=== PATIENT | male | born 1980 | race Caucasian/White ===

== ENCOUNTER 2020-03-08 09:07 | Inpatient (IN) | payer OTHER ==
[2020-03-08] MEDS ORDERED: SODIUM CHLORIDE 0.9% 500 ML INFUS.BAG IV ONE (10:06)
[2020-03-08 11:38] LABS: BASO % 1.5 % (0-2.0); EOS % 5.6 % (0-4.5); HEMATOCRIT 37.5 % (35.4-49); HEMOGLOBIN 12.4 GM/dL (11.7-16.9); LYMPH % 22.8 % (8-40); MCH 28.6 pg (25.7-33.7); MEAN CELL VOLUME 86.7 fl (80-96); MEAN PLT VOLUME 6.8 fl (7.5-11.1); MONO % 10.7 % (3.8-10.2); NEUT % 59.4 % (42.8-82.8); PLATELET COUNT 359 K/MM3 (134-434); RBC 4.33 M/mm3 (4.00-5.60); RDW 15.6 % (11.9-15.9); WHITE BLOOD COUNT 3.1 K/mm3 (4.0-10.0)
[2020-03-08] MEDS ORDERED: AZITHROMYCIN IVPB 1,000 MG in DEXTROSE 5%-WATER - 250 ML IVPB ONE (11:44)
[2020-03-08 11:54] LABS: POTASSIUM 3.8 mmol/L (3.5-5.1)
[2020-03-08 11:56] LABS: CALCIUM 8.6 mg/dL (8.5-10.1)
[2020-03-08 11:57] LABS: BLOOD UREA NITROGEN 16.2 mg/dL (7-18)
[2020-03-08 12:00] LABS: CREATININE 0.7 mg/dL (0.55-1.3)
[2020-03-08 12:01] LABS: BILIRUBIN,TOTAL 0.6 mg/dL (0.2-1)
[2020-03-08 12:02] LABS: TOT PROT 7.5 g/dl (6.4-8.2)
[2020-03-08] MEDS ORDERED: CEFTRIAXONE 1 GM/50 ML BAG ONE (12:49)
[2020-03-08] MEDS ORDERED: AZITHROMYCIN IVPB 500 MG/250 ML BAG IVPB ONE (12:50)
[2020-03-08 14:11] LABS: URINE APPEARANCE CLEAR; URINE BILIRUBIN NEGATIVE (NEGATIVE); URINE COLOR YELLOW; URINE GLUCOSE (UA) NEGATIVE (NEGATIVE); URINE KETONE NEGATIVE (NEGATIVE); URINE LEUK ESTERASE NEGATIVE (NEGATIVE); URINE NITRITE NEGATIVE (NEGATIVE); URINE PROTEIN NEGATIVE (NEGATIVE); URINE UROBILINOGEN 0.2 mg/dL (0.2-1.0)
[2020-03-08 16:34] VITALS: BMI 16.9
[2020-03-08] MEDS ORDERED: PNEUMOC 13-VAL CONJ-DIP CRM/PF 0.5 ML DISP.SYRIN IM ONE (16:34)
[2020-03-08] MEDS ORDERED: FLU VACCINE (FLULAVAL) PF 60 MCG/0.5 ML SYRINGE 2020-2021 IM ONE (19:00)
[2020-03-08] MEDS ORDERED: PNEUMOCOCCAL 23 VACCINE 0.5 ML VIAL IM ONE (19:00)
[2020-03-08] MEDS ORDERED: ONDANSETRON 4 MG/2 ML VIAL IVPUSH PRN (21:53)
[2020-03-08] MEDS: LACTATED RINGERS SOLUTION 1,000 ML/1,000 ML INFUS.BAG IV SCH (23:24)
[2020-03-09] MEDS: LACTATED RINGERS SOLUTION 1,000 ML/1,000 ML INFUS.BAG IV SCH (00:05)
[2020-03-09] MEDS ORDERED: cefTRIAXone SODIUM 1 GM VIAL ONE (09:11)
[2020-03-09] MEDS ORDERED: DEXTROSE 5%-WATER - 50 ML IVPB ONE (09:11)
[2020-03-09] MEDS ORDERED: AZITHROMYCIN IVPB 500 MG/250 ML BAG IVPB SCH (10:00)
[2020-03-09] MEDS ORDERED: CEFTRIAXONE 1 GM in DEXTROSE 5%-WATER - 50 ML IVPB ONE (10:00)
[2020-03-09] MEDS ORDERED: ENOXAPARIN NA (PORCINE) 40 MG/0.4 ML DISP.SYRIN SQ SCH (10:00)
[2020-03-09 11:01] LABS: HEMATOCRIT 36.7 % (35.4-49); HEMOGLOBIN 11.9 GM/dL (11.7-16.9); MCH 28.2 pg (25.7-33.7); MCHC 32.5 g/dl (32.0-35.9); MEAN CELL VOLUME 86.7 fl (80-96); MEAN PLT VOLUME 6.7 fl (7.5-11.1); PLATELET COUNT 375 K/MM3 (134-434); RBC 4.24 M/mm3 (4.00-5.60); WHITE BLOOD COUNT 3.4 K/mm3 (4.0-10.0)
[2020-03-09 11:09] LABS: INR 0.87 (0.83-1.09); PROTHROMBIN TIME (PATIENT) 10.8 SEC (9.7-13.0)
[2020-03-09 11:12] LABS: ACTIVATED PTT 32.8 SECONDS (25.2-36.5)
[2020-03-09 11:23] LABS: POTASSIUM 3.9 mmol/L (3.5-5.1)
[2020-03-09 11:25] LABS: CALCIUM 8.6 mg/dL (8.5-10.1)
[2020-03-09 11:26] LABS: MAGNESIUM 2.1 mg/dL (1.8-2.4)
[2020-03-09 11:29] LABS: CREATININE 0.7 mg/dL (0.55-1.3); PHOSPHOROUS 3.2 mg/dL (2.5-4.9)
[2020-03-09] MEDS: CHOLECALCIFEROL (VIT D3) 1,000 UNIT (25 MCG) TABLET PO SCH (17:30)
[2020-03-09 20:01] LABS: HIV INTERPRETATION PRESUMPTIVE POSITIVE (NEGATIVE)
[2020-03-09] MEDS: ENOXAPARIN NA (PORCINE) 60 MG/0.6 ML DISP.SYRIN SQ SCH ×2 (21:21→21:30)
[2020-03-09] MEDS: ASCORBIC ACID 500 MG TABLET (FP) PO SCH ×2 (21:21→21:30)
[2020-03-10] MEDS ORDERED: THIAMINE HCL 100 MG TABLET (FP) PO SCH (10:00)
[2020-03-10] MEDS ORDERED: FOLIC ACID 1 MG TABLET (FP) PO SCH (10:00)
[2020-03-10] MEDS: ASCORBIC ACID 500 MG TABLET (FP) PO SCH ×2 (10:05→21:45)
[2020-03-10] MEDS: LACTATED RINGERS SOLUTION 1,000 ML/1,000 ML INFUS.BAG IV SCH ×2 (10:05→23:06)
[2020-03-10] MEDS: ZINC SULFATE 220 MG CAPSULE (FP) PO SCH (10:06)
[2020-03-10] MEDS: CHOLECALCIFEROL (VIT D3) 1,000 UNIT (25 MCG) TABLET PO SCH (10:06)
[2020-03-10] MEDS: MULTIVITAMINS (DAILY MVI) TABLET (FP) PO SCH (10:06)
[2020-03-10] MEDS: ENOXAPARIN NA (PORCINE) 60 MG/0.6 ML DISP.SYRIN SQ SCH ×2 (10:35→21:45)
[2020-03-10] MEDS ORDERED: PIPERACILLIN/TAZOBACTAM 3.375 GM VIAL IVPB ONE ×2 (10:40→16:34)
[2020-03-10] MEDS ORDERED: DEXTROSE 5%-WATER - 50 ML IVPB ONE ×2 (10:40→16:34)
[2020-03-10] MEDS: PIPERACILLIN/TAZOB 3.375 GM 3.375 GM in DEXTROSE 5%-WATER - 50 ML IVPB SCH ×2 (10:52→17:17)
[2020-03-10] MEDS ORDERED: LORazepam 2 MG/ML SDV VIAL IVPUSH ONE (17:30)
[2020-03-11] MEDS ORDERED: DEXTROSE 5%-WATER - 50 ML IVPB ONE (01:06)
[2020-03-11] MEDS ORDERED: PIPERACILLIN/TAZOBACTAM 3.375 GM VIAL IVPB ONE (01:06)
[2020-03-11] MEDS: PIPERACILLIN/TAZOB 3.375 GM 3.375 GM in DEXTROSE 5%-WATER - 50 ML IVPB SCH ×3 (02:47→16:44)
[2020-03-11] MEDS ORDERED: ALBUTEROL SO4 HFA INHALER IH ONE (03:38)
[2020-03-11] MEDS: ENOXAPARIN NA (PORCINE) 60 MG/0.6 ML DISP.SYRIN SQ SCH ×2 (09:21→21:27)
[2020-03-11] MEDS: ASCORBIC ACID 500 MG TABLET (FP) PO SCH ×2 (09:21→21:27)
[2020-03-11] MEDS: CHOLECALCIFEROL (VIT D3) 1,000 UNIT (25 MCG) TABLET PO SCH (09:21)
[2020-03-11] MEDS: ZINC SULFATE 220 MG CAPSULE (FP) PO SCH (09:22)
[2020-03-11] MEDS: MULTIVITAMINS (DAILY MVI) TABLET (FP) PO SCH (09:22)
[2020-03-11 09:36] LABS: HEMATOCRIT 37.8 % (35.4-49); HEMOGLOBIN 12.3 GM/dL (11.7-16.9); MCH 28.4 pg (25.7-33.7); MCHC 32.5 g/dl (32.0-35.9); MEAN CELL VOLUME 87.3 fl (80-96); MEAN PLT VOLUME 6.5 fl (7.5-11.1); PLATELET COUNT 371 K/MM3 (134-434); RBC 4.33 M/mm3 (4.00-5.60); RDW 15.9 % (11.9-15.9); WHITE BLOOD COUNT 3.4 K/mm3 (4.0-10.0)
[2020-03-11 10:00] LABS: POTASSIUM 3.8 mmol/L (3.5-5.1)
[2020-03-11 10:08] LABS: BLOOD UREA NITROGEN 14.5 mg/dL (7-18)
[2020-03-11 10:17] LABS: CREATININE 0.9 mg/dL (0.55-1.3)
[2020-03-11] MEDS ORDERED: ALBUTEROL SO4 2.5/IPRATROPIUM 0.5 INH SOL 3 ML VIAL.NEB. NEB ONE (18:30)
[2020-03-11] MEDS: busPIRone HCL 10 MG TABLET (FP) PO SCH ×2 (21:27→21:36)
[2020-03-12] MEDS: CHOLECALCIFEROL (VIT D3) 1,000 UNIT (25 MCG) TABLET PO SCH (10:01)
[2020-03-12] MEDS: ASCORBIC ACID 500 MG TABLET (FP) PO SCH ×2 (10:01→21:31)
[2020-03-12] MEDS: ZINC SULFATE 220 MG CAPSULE (FP) PO SCH (10:01)
[2020-03-12] MEDS: ENOXAPARIN NA (PORCINE) 60 MG/0.6 ML DISP.SYRIN SQ SCH ×2 (10:02→21:42)
[2020-03-12] MEDS: busPIRone HCL 10 MG TABLET (FP) PO SCH ×2 (11:12→21:27)
[2020-03-12] MEDS: MULTIVITAMINS (DAILY MVI) TABLET (FP) PO SCH (12:18)
[2020-03-12] MEDS: guaiFENesin 200 MG/10 ML 10 ML UNIT-DOSE CUPS PO PRN ×2 (12:22→21:41)
[2020-03-13] MEDS: LACTATED RINGERS SOLUTION 1,000 ML/1,000 ML INFUS.BAG IV SCH ×3 (03:12→21:52)
[2020-03-13] MEDS: ENOXAPARIN NA (PORCINE) 60 MG/0.6 ML DISP.SYRIN SQ SCH ×2 (09:51→21:52)
[2020-03-13] MEDS: busPIRone HCL 10 MG TABLET (FP) PO SCH ×2 (09:52→21:53)
[2020-03-13] MEDS: CHOLECALCIFEROL (VIT D3) 1,000 UNIT (25 MCG) TABLET PO SCH (09:53)
[2020-03-13] MEDS: ASCORBIC ACID 500 MG TABLET (FP) PO SCH ×2 (09:54→21:52)
[2020-03-13] MEDS: guaiFENesin 200 MG/10 ML 10 ML UNIT-DOSE CUPS PO PRN (11:05)
[2020-03-13] MEDS: ZINC SULFATE 220 MG CAPSULE (FP) PO SCH (11:05)
[2020-03-13] MEDS: MULTIVITAMINS (DAILY MVI) TABLET (FP) PO SCH (11:34)
[2020-03-13] MEDS: ALBUTEROL SO4 2.5/IPRATROPIUM 0.5 INH SOL 3 ML VIAL.NEB. NEB SCH ×3 (12:50→20:09)
[2020-03-13] MEDS: BUDESONIDE/FORMETEROL FUMARATE 80/4.5 mcg INHALER IH SCH (21:54)
[2020-03-14] MEDS: ALBUTEROL SO4 2.5/IPRATROPIUM 0.5 INH SOL 3 ML VIAL.NEB. NEB SCH ×4 (08:37→20:29)
[2020-03-14] MEDS: ENOXAPARIN NA (PORCINE) 60 MG/0.6 ML DISP.SYRIN SQ SCH ×2 (09:26→22:09)
[2020-03-14] MEDS: ZINC SULFATE 220 MG CAPSULE (FP) PO SCH (09:27)
[2020-03-14] MEDS: ASCORBIC ACID 500 MG TABLET (FP) PO SCH ×2 (09:28→22:01)
[2020-03-14] MEDS: CHOLECALCIFEROL (VIT D3) 1,000 UNIT (25 MCG) TABLET PO SCH (09:28)
[2020-03-14] MEDS: BUDESONIDE/FORMETEROL FUMARATE 80/4.5 mcg INHALER IH SCH ×2 (09:28→22:08)
[2020-03-14] MEDS: MULTIVITAMINS (DAILY MVI) TABLET (FP) PO SCH (09:28)
[2020-03-14] MEDS: busPIRone HCL 10 MG TABLET (FP) PO SCH ×2 (09:29→21:59)
[2020-03-14 14:03] LABS: HEMATOCRIT 39.3 % (35.4-49); HEMOGLOBIN 12.5 GM/dL (11.7-16.9); MCH 27.9 pg (25.7-33.7); MCHC 31.9 g/dl (32.0-35.9); MEAN CELL VOLUME 87.3 fl (80-96); MEAN PLT VOLUME 6.8 fl (7.5-11.1); PLATELET COUNT 362 K/MM3 (134-434); RDW 16.1 % (11.9-15.9); WHITE BLOOD COUNT 3.7 K/mm3 (4.0-10.0)
[2020-03-14] MEDS: LACTATED RINGERS SOLUTION 1,000 ML/1,000 ML INFUS.BAG IV SCH (21:36)
[2020-03-14] MEDS ORDERED: PT OWN MED DRAWER 7, Y5N ONE (21:55)
[2020-03-15] MEDS: ALBUTEROL SO4 2.5/IPRATROPIUM 0.5 INH SOL 3 ML VIAL.NEB. NEB SCH ×4 (10:01→20:09)
[2020-03-15] MEDS: MULTIVITAMINS (DAILY MVI) TABLET (FP) PO SCH (10:02)
[2020-03-15] MEDS: ENOXAPARIN NA (PORCINE) 60 MG/0.6 ML DISP.SYRIN SQ SCH ×3 (10:02→21:07)
[2020-03-15] MEDS: ASCORBIC ACID 500 MG TABLET (FP) PO SCH ×3 (10:02→21:07)
[2020-03-15] MEDS: ZINC SULFATE 220 MG CAPSULE (FP) PO SCH (10:02)
[2020-03-15] MEDS: BUDESONIDE/FORMETEROL FUMARATE 80/4.5 mcg INHALER IH SCH ×2 (10:03→21:27)
[2020-03-15] MEDS: CHOLECALCIFEROL (VIT D3) 1,000 UNIT (25 MCG) TABLET PO SCH (10:03)
[2020-03-15] MEDS: busPIRone HCL 10 MG TABLET (FP) PO SCH ×2 (10:29→21:07)
[2020-03-15 11:02] LABS: MCHC 32.3 g/dl (32.0-35.9); WHITE BLOOD COUNT 3.7 K/mm3 (4.0-10.0)
[2020-03-15 11:10] LABS: HEMATOCRIT 38.6 % (35.4-49); HEMOGLOBIN 12.5 GM/dL (11.7-16.9); MCH 28.1 pg (25.7-33.7); MEAN CELL VOLUME 86.8 fl (80-96); MEAN PLT VOLUME 6.8 fl (7.5-11.1); PLATELET COUNT 383 K/MM3 (134-434); POTASSIUM 4.3 mmol/L (3.5-5.1); RBC 4.45 M/mm3 (4.00-5.60); RDW 15.8 % (11.9-15.9)
[2020-03-15 11:11] LABS: CALCIUM 8.8 mg/dL (8.5-10.1)
[2020-03-15 11:12] LABS: BLOOD UREA NITROGEN 21.6 mg/dL (7-18)
[2020-03-15 11:15] LABS: CREATININE 0.8 mg/dL (0.55-1.3)
[2020-03-15] MEDS: SODIUM CHLORIDE 1,000 ML IV SCH (13:15)
[2020-03-15] MEDS: LACTATED RINGERS SOLUTION 1,000 ML/1,000 ML INFUS.BAG IV SCH (21:28)
[2020-03-16] MEDS: ALBUTEROL SO4 2.5/IPRATROPIUM 0.5 INH SOL 3 ML VIAL.NEB. NEB SCH ×2 (07:58→11:54)
[2020-03-16] MEDS ORDERED: PT OWN MED DRAWER 7, Y5N ONE (10:22)
[2020-03-16] MEDS: CHOLECALCIFEROL (VIT D3) 1,000 UNIT (25 MCG) TABLET PO SCH (10:25)
[2020-03-16] MEDS: ENOXAPARIN NA (PORCINE) 60 MG/0.6 ML DISP.SYRIN SQ SCH (10:25)
[2020-03-16] MEDS: MULTIVITAMINS (DAILY MVI) TABLET (FP) PO SCH (10:25)
[2020-03-16] MEDS: ZINC SULFATE 220 MG CAPSULE (FP) PO SCH (10:25)
[2020-03-16] MEDS: ASCORBIC ACID 500 MG TABLET (FP) PO SCH (10:25)
[2020-03-16] MEDS: BUDESONIDE/FORMETEROL FUMARATE 80/4.5 mcg INHALER IH SCH (10:29)
[2020-03-16] MEDS: busPIRone HCL 10 MG TABLET (FP) PO SCH (10:29)
[2020-03-16] MEDS: SODIUM CHLORIDE 1,000 ML IV SCH (15:22)
[2020-03-16 15:25] VITALS: BP 102/56; PULSE 79; TEMP 98.3
== END 2020-03-16 15:12 | DRG 893 ==
LOC: JER 09:07 → EDBD 14:02 → JERBED 14:02 → J5S 15:52 → J8W 03-12 22:30
PROVIDERS: ADMIT Internal Medicine; ATTEND Internal Medicine
DX: J18.9 Pneumonia, unspecified organism (principal); J45.909 Unspecified asthma, uncomplicated; R11.2 Nausea with vomiting, unspecified; K62.5 Hemorrhage of anus and rectum; G47.00 Insomnia, unspecified; K52.9 Noninfective gastroenteritis and colitis, unspecified; R19.7 Diarrhea, unspecified; R50.9 Fever, unspecified; D72.819 Decreased white blood cell count, unspecified; Z16.12 Extended spectrum beta lactamase (ESBL) resistance; F41.9 Anxiety disorder, unspecified; D64.1 Secondary sideroblastic anemia due to disease; R19.5 Other fecal abnormalities; B20 Human immunodeficiency virus [HIV] disease; I95.1 Orthostatic hypotension; R64 Cachexia; Z68.1 Body mass index [BMI] 19.9 or less, adult; Z59.0 Homelessness
CPT/HCPCS: 36415; 71046-TC-FY; 71275-TC; 80048; 80053; 81003; 82272; 82728; 83615; 83735; 84100; 85025; 85027; 85379; 85610; 85730; 86140; 86359; 86360; 87040; 87086; 87186; 87389; 93005; 93010; 93970-TC; 94640; 97116-GP; 97161-GP; 99285-25; C9803; Q9967; U0003

== ENCOUNTER 2020-10-05 17:34 | Observation (INO) | payer OTHER ==
[2020-10-05] MEDS ORDERED: SODIUM CHLORIDE 1,633 ML IV ONE (19:35)
[2020-10-05] MEDS ORDERED: ACETAMINOPHEN 1000 MG/100 ML VIAL (NON FORMULARY) IVPB ONE (19:37)
[2020-10-05] MEDS ORDERED: ACETAMINOPHEN INJECTION 100 ML IVPB ONE (20:32)
[2020-10-05 20:55] LABS: BASO % 0.5 % (0-2.0); EOS % 2.3 % (0-4.5); HEMATOCRIT 41.1 % (35.4-49); HEMOGLOBIN 13.7 GM/dL (11.7-16.9); LYMPH % 28.3 % (8-40); MCH 29.1 pg (25.7-33.7); MCHC 33.5 g/dl (32.0-35.9); MEAN CELL VOLUME 87.1 fl (80-96); MEAN PLT VOLUME 6.5 fl (7.5-11.1); MONO % 12.5 % (3.8-10.2); NEUT % 56.4 % (42.8-82.8); PLATELET COUNT 354 10^3/uL (134-434); RBC 4.72 M/mm3 (4.00-5.60); RDW 14.1 % (11.9-15.9); WHITE BLOOD COUNT 4.5 K/mm3 (4.0-10.0)
[2020-10-05 21:04] LABS: INR 0.95 (0.83-1.09); PROTHROMBIN TIME (PATIENT) 11.7 SEC (9.7-13.0)
[2020-10-05 21:06] LABS: ACTIVATED PTT 31.2 SECONDS (25.2-36.5)
[2020-10-05 21:12] LABS: CALCIUM 8.4 mg/dL (8.5-10.1)
[2020-10-05 21:13] LABS: ALBUMIN 2.9 g/dl (3.4-5.0); BLOOD UREA NITROGEN 8.8 mg/dL (7-18)
[2020-10-05 21:16] LABS: CREATININE 0.7 mg/dL (0.55-1.3)
[2020-10-05 21:18] LABS: BILIRUBIN,TOTAL 0.2 mg/dL (0.2-1); TOT PROT 6.9 g/dl (6.4-8.2)
[2020-10-05 23:01] LABS: URINE APPEARANCE CLOUDY; URINE BILIRUBIN NEGATIVE (NEGATIVE); URINE COLOR YELLOW; URINE GLUCOSE (UA) NEGATIVE (NEGATIVE); URINE KETONE NEGATIVE (NEGATIVE); URINE LEUK ESTERASE NEGATIVE (NEGATIVE); URINE NITRITE NEGATIVE (NEGATIVE); URINE PROTEIN NEGATIVE (NEGATIVE)
[2020-10-06] MEDS ORDERED: ALBUTEROL SO4 HFA INHALER IH ONE ×2 (02:44→03:15)
[2020-10-06] MEDS ORDERED: NYSTATIN 500,000 UNITS/5 ML SUSPENSION PO SCH (02:45)
[2020-10-06 07:27] LABS: BASO % 1.4 % (0-2.0); EOS % 3.3 % (0-4.5); HEMATOCRIT 41.4 % (35.4-49); HEMOGLOBIN 14.1 GM/dL (11.7-16.9); LYMPH % 34.7 % (8-40); MCH 29.7 pg (25.7-33.7); MCHC 34.2 g/dl (32.0-35.9); MEAN CELL VOLUME 86.9 fl (80-96); MEAN PLT VOLUME 6.6 fl (7.5-11.1); NEUT % 45.6 % (42.8-82.8); PLATELET COUNT 312 10^3/uL (134-434); RBC 4.76 M/mm3 (4.00-5.60); RDW 14.4 % (11.9-15.9); WHITE BLOOD COUNT 3.2 K/mm3 (4.0-10.0)
[2020-10-06 07:51] LABS: ALBUMIN 2.6 g/dl (3.4-5.0)
[2020-10-06 07:52] LABS: BLOOD UREA NITROGEN 5.8 mg/dL (7-18)
[2020-10-06 07:53] LABS: MAGNESIUM 1.9 mg/dL (1.8-2.4)
[2020-10-06 07:55] LABS: BILIRUBIN,TOTAL 0.2 mg/dL (0.2-1); CREATININE 0.7 mg/dL (0.55-1.3); PHOSPHOROUS 2.8 mg/dL (2.5-4.9); TOT PROT 6.4 g/dl (6.4-8.2)
[2020-10-06 10:11] LABS: URINE BARBITURATES NEGATIVE (NEGATIVE); URINE BENZODIAZEPINES NEGATIVE (NEGATIVE)
[2020-10-06 10:12] LABS: COCAINE, UR NEGATIVE (NEGATIVE); METHADONE, UR NEGATIVE (NEGATIVE); OPIATES, URI NEGATIVE (NEGATIVE)
[2020-10-06 10:20] LABS: PHENCYCLIDINE,URINE NEGATIVE (NEGATIVE); URINE AMPHETAMINES POSITIVE (NEGATIVE)
[2020-10-06] MEDS: NYSTATIN 500,000 UNITS/5 ML SUSPENSION PO SCH ×3 (10:28→18:22)
[2020-10-06] MEDS ORDERED: ACETAMINOPHEN 325 MG TABLET (FP) PO ONE (12:00)
[2020-10-06] MEDS: ENOXAPARIN NA (PORCINE) 40 MG/0.4 ML DISP.SYRIN SQ SCH (12:15)
[2020-10-06] MEDS ORDERED: POTASSIUM CHLORIDE TABS 20 MEQ TABLET.ER (FP) PO ONE (17:17)
[2020-10-07] MEDS: NYSTATIN 500,000 UNITS/5 ML SUSPENSION PO SCH ×5 (00:22→17:48)
[2020-10-07] MEDS: ALBUTEROL SO4 0.083% IH SOL 2.5 MG/3 ML VIAL.NEB. NEB PRN (01:11)
[2020-10-07] MEDS ORDERED: PATIENT'S OWN MEDICATION (NON-FORMULARY) (Finasteride [Finasteride] 1 MG Tablet) PO SCH (10:00)
[2020-10-07] MEDS ORDERED: PT OWN MED DRAWER 7, Y5N ONE (10:59)
[2020-10-07] MEDS: ESCITALOPRAM OXALATE 10 MG TABLET PO SCH (11:02)
[2020-10-07] MEDS: OLANZapine 5 MG TABLET PO SCH (11:02)
[2020-10-07] MEDS: ENOXAPARIN NA (PORCINE) 40 MG/0.4 ML DISP.SYRIN SQ SCH ×2 (11:02→11:10)
[2020-10-07] MEDS: BICTEGRAV/EMTRICIT/TENOFOV (BIKTARVY) 50-200-25 MG TABLET PO SCH (11:03)
[2020-10-07] MEDS ORDERED: FUROSEMIDE 40 MG/4 ML INJECTABLE VIAL ONE (11:46)
[2020-10-07] MEDS ORDERED: SODIUM CHLORIDE 500 ML IV STA ×2 (20:47→23:04)
[2020-10-08] MEDS: NYSTATIN 500,000 UNITS/5 ML SUSPENSION PO SCH ×5 (00:45→23:44)
[2020-10-08] MEDS: ALBUTEROL SO4 0.083% IH SOL 2.5 MG/3 ML VIAL.NEB. NEB PRN ×2 (00:59→07:54)
[2020-10-08] MEDS: ENOXAPARIN NA (PORCINE) 40 MG/0.4 ML DISP.SYRIN SQ SCH (10:24)
[2020-10-08] MEDS: ESCITALOPRAM OXALATE 10 MG TABLET PO SCH (10:34)
[2020-10-08] MEDS: BICTEGRAV/EMTRICIT/TENOFOV (BIKTARVY) 50-200-25 MG TABLET PO SCH (10:34)
[2020-10-08] MEDS: OLANZapine 5 MG TABLET PO SCH (10:34)
[2020-10-08 10:50] VITALS: BMI 18.3
[2020-10-09] MEDS: ALBUTEROL SO4 0.083% IH SOL 2.5 MG/3 ML VIAL.NEB. NEB PRN (01:36)
[2020-10-09] MEDS: NYSTATIN 500,000 UNITS/5 ML SUSPENSION PO SCH ×2 (05:18→11:43)
[2020-10-09] MEDS ORDERED: SODIUM CHLORIDE 0.9% 500 ML INFUS.BAG IV ONE (05:23)
[2020-10-09] MEDS ORDERED: MULTIVITAMINS (DAILY MVI) TABLET (FP) PO SCH (10:00)
[2020-10-09] MEDS: ENOXAPARIN NA (PORCINE) 40 MG/0.4 ML DISP.SYRIN SQ SCH (10:28)
[2020-10-09] MEDS ORDERED: PT OWN MED DRAWER 7, Y5N ONE (10:43)
[2020-10-09] MEDS: BICTEGRAV/EMTRICIT/TENOFOV (BIKTARVY) 50-200-25 MG TABLET PO SCH (10:56)
[2020-10-09] MEDS: ESCITALOPRAM OXALATE 10 MG TABLET PO SCH (10:58)
[2020-10-09] MEDS: OLANZapine 5 MG TABLET PO SCH (10:58)
[2020-10-09 11:05] VITALS: BP 93/53; PULSE 62; TEMP 98
== END 2020-10-09 13:59 | disposition home or self-care (01) ==
LOC: JER 17:34 → UNDOADMOB 10-06 01:36 → JERBED 10-06 01:36 → INTOOBSV 10-06 01:36 → JERBED 10-06 10:09 → J5S 10-06 10:09 → JERBED 10-06 13:06 → J5S 10-06 13:06
PROVIDERS: ADMIT Internal Medicine; ATTEND Internal Medicine
PROC: 3E023GC Introduction of Other Therapeutic Substance into Muscle, Percutaneous Approach (ICD-10-PCS; principal; 2020-10-06)
PROC: 3E0F7GC Introduction of Other Therapeutic Substance into Respiratory Tract, Via Natural or Artificial Opening (ICD-10-PCS; 2020-10-06)
PROC: 3E033NZ Introduction of Analgesics, Hypnotics, Sedatives into Peripheral Vein, Percutaneous Approach (ICD-10-PCS; 2020-10-06)
PROC: 3E0337Z Introduction of Electrolytic and Water Balance Substance into Peripheral Vein, Percutaneous Approach (ICD-10-PCS; 2020-10-06)
DX: B20 Human immunodeficiency virus [HIV] disease (principal); R55 Syncope and collapse; R09.89 Other specified symptoms and signs involving the circulatory and respiratory systems; Z99.81 Dependence on supplemental oxygen; J40 Bronchitis, not specified as acute or chronic; B37.0 Candidal stomatitis; X58.XXXA Exposure to other specified factors, initial encounter; Y93.89 Activity, other specified; Y92.89 Other specified places as the place of occurrence of the external cause; Z91.19 Patient's noncompliance with other medical treatment and regimen; F19.10 Other psychoactive substance abuse, uncomplicated; Z29.9 Encounter for prophylactic measures, unspecified; F41.8 Other specified anxiety disorders; R13.10 Dysphagia, unspecified; R42 Dizziness and giddiness; R19.7 Diarrhea, unspecified; Z72.0 Tobacco use; Z91.013 Allergy to seafood; Z88.8 Allergy status to other drugs, medicaments and biological substances
CPT/HCPCS: 36415; 70450-TC; 71045-TC-FY; 72125-TC; 80053; 80307; 81003; 82272; 83036; 83605; 83615; 83735; 84100; 85025; 85610; 85730; 86308; 86359; 86360; 86780; 87040; 87086; 87496; 87804; 87880; 93005; 93010; 94640; 96361; 96372; 96374; 99285-25; C9803; G0378; J0131; U0003; U0005

== ENCOUNTER 2020-11-07 11:32 | Emergency (ER) | payer OTHER ==
[2020-11-07 11:50] VITALS: TEMP 98.1; BMI 18.6
[2020-11-07] MEDS ORDERED: SODIUM CHLORIDE 0.9% 1000 ML INFUS.BAG IV ONE (15:06)
[2020-11-07] MEDS ORDERED: ACETAMINOPHEN 1000 MG/100 ML VIAL IVPB ONE (15:06)
[2020-11-07] MEDS ORDERED: ACETAMINOPHEN INJECTION 100 ML IVPB ONE (15:11)
[2020-11-07 15:33] LABS: BASO % 0.4 % (0-2.0); EOS % 6.7 % (0-4.5); HEMATOCRIT 38.5 % (35.4-49); HEMOGLOBIN 13.1 GM/dL (11.7-16.9); MCH 29.8 pg (25.7-33.7); MEAN CELL VOLUME 87.8 fl (80-96); MEAN PLT VOLUME 7.1 fl (7.5-11.1); MONO % 10.9 % (3.8-10.2); PLATELET COUNT 318 10^3/uL (134-434); RBC 4.39 M/mm3 (4.00-5.60); RDW 14.5 % (11.9-15.9); WHITE BLOOD COUNT 4.5 K/mm3 (4.0-10.0)
[2020-11-07 15:49] LABS: CALCIUM 7.8 mg/dL (8.5-10.1)
[2020-11-07 15:50] LABS: ALBUMIN 2.8 g/dl (3.4-5.0); BLOOD UREA NITROGEN 15.6 mg/dL (7-18)
[2020-11-07 15:53] LABS: CREATININE 0.7 mg/dL (0.55-1.3)
[2020-11-07 15:55] LABS: BILIRUBIN,TOTAL 0.2 mg/dL (0.2-1); TOT PROT 6.5 g/dl (6.4-8.2)
[2020-11-07 15:58] LABS: INR 0.92 (0.83-1.09); PROTHROMBIN TIME (PATIENT) 11.4 SEC (9.7-13.0)
[2020-11-07 16:01] LABS: ACTIVATED PTT 31.1 SECONDS (25.2-36.5)
[2020-11-07 16:33] VITALS: BP 109/70; PULSE 53
[2020-11-07 18:48] LABS: PH,URINE 7.5 (5.0-8.0); URINE APPEARANCE CLEAR; URINE BILIRUBIN NEGATIVE (NEGATIVE); URINE COLOR YELLOW; URINE GLUCOSE (UA) NEGATIVE (NEGATIVE); URINE KETONE NEGATIVE (NEGATIVE); URINE LEUK ESTERASE NEGATIVE (NEGATIVE); URINE NITRITE NEGATIVE (NEGATIVE); URINE PROTEIN NEGATIVE (NEGATIVE); URINE UROBILINOGEN 0.2 mg/dL (0.2-1.0)
== END 2020-11-07 20:05 | disposition home or self-care (01) ==
LOC: JER 11:32
PROC: 3E033GC Introduction of Other Therapeutic Substance into Peripheral Vein, Percutaneous Approach (ICD-10-PCS; principal; 2020-11-07)
DX: R62.7 Adult failure to thrive (principal); B20 Human immunodeficiency virus [HIV] disease
CPT/HCPCS: 36415; 71045-TC-FY; 80053; 81003; 82272; 85025; 85610; 85730; 86850; 86900; 86901; 87040; 87804; 93005; 93010; 96374; 99285-25; C9803; J0131; U0003; U0005

== ENCOUNTER 2020-11-16 16:10 | Inpatient (IN) | payer OTHER ==
[2020-11-16] MEDS ORDERED: SODIUM CHLORIDE 0.9% 500 ML INFUS.BAG IV ONE ×3 (17:30→20:55)
[2020-11-16] MEDS ORDERED: SODIUM CHLORIDE 1,089 ML IV ONE (17:38)
[2020-11-16 18:45] LABS: BASO % 0.1 % (0-2.0); HEMATOCRIT 37.8 % (35.4-49); HEMOGLOBIN 12.6 GM/dL (11.7-16.9); LYMPH % 1.7 % (8-40); MCH 29.3 pg (25.7-33.7); MCHC 33.2 g/dl (32.0-35.9); MEAN PLT VOLUME 7.1 fl (7.5-11.1); MONO % 1.3 % (3.8-10.2); NEUT % 96.9 % (42.8-82.8); PLATELET COUNT 238 10^3/uL (134-434); RDW 14.7 % (11.9-15.9)
[2020-11-16 18:53] LABS: INR 1.18 (0.83-1.09); PROTHROMBIN TIME (PATIENT) 14.2 SEC (9.7-13.0)
[2020-11-16 19:05] LABS: CALCIUM 7.8 mg/dL (8.5-10.1)
[2020-11-16 19:06] LABS: ALBUMIN 2.9 g/dl (3.4-5.0); MAGNESIUM 2.3 mg/dL (1.8-2.4)
[2020-11-16 19:08] LABS: CREATININE 2.1 mg/dL (0.55-1.3); PHOSPHOROUS 5.4 mg/dL (2.5-4.9)
[2020-11-16 19:10] LABS: BILIRUBIN,TOTAL 0.5 mg/dL (0.2-1); TOT PROT 7.1 g/dl (6.4-8.2)
[2020-11-16 19:28] LABS: ANISOCYTOSIS 0; MACROCYTOSIS 0; PLATELET ESTIMATE NORMAL
[2020-11-16 20:40] LABS: LACTIC ACID 7.4 mmol/L (0.4-2.0)
[2020-11-16] MEDS ORDERED: AZITHROMYCIN IVPB 500 MG in DEXTROSE 5%-WATER - 250 ML IVPB ONE (21:41)
[2020-11-16] MEDS ORDERED: AZITHROMYCIN IVPB 500 MG/250 ML BAG IVPB ONE (21:41)
[2020-11-16] MEDS ORDERED: CEFTRIAXONE 1,000 MG in DEXTROSE 5%-WATER - 50 ML IVPB ONE (21:41)
[2020-11-16] MEDS ORDERED: CEFTRIAXONE 1 GM/50 ML BAG ONE (21:41)
[2020-11-16 22:18] LABS: EPI CELLS >36 /uL (0-25.1); HYALINE CASTS 13 /uL (0-3.1); URINE APPEARANCE CLOUDY; URINE BACTERIA 13 /uL (0-1359); URINE BILIRUBIN NEGATIVE (NEGATIVE); URINE COLOR DK YELLOW; URINE GLUCOSE (UA) NEGATIVE (NEGATIVE); URINE KETONE NEGATIVE (NEGATIVE); URINE LEUK ESTERASE NEGATIVE (NEGATIVE); URINE NITRITE NEGATIVE (NEGATIVE); URINE PROTEIN 2+ (NEGATIVE); URINE UROBILINOGEN 0.2 mg/dL (0.2-1.0)
[2020-11-16 22:27] LABS: METHADONE, UR NEGATIVE (NEGATIVE); PHENCYCLIDINE,URINE NEGATIVE (NEGATIVE); URINE BARBITURATES NEGATIVE (NEGATIVE); URINE BENZODIAZEPINES NEGATIVE (NEGATIVE)
[2020-11-16 22:31] LABS: COCAINE, UR NEGATIVE (NEGATIVE); OPIATES, URI NEGATIVE (NEGATIVE); URINE AMPHETAMINES POSITIVE (NEGATIVE)
[2020-11-16] MEDS ORDERED: LORazepam 2 MG TABLET PO ONE (23:02)
[2020-11-16 23:28] LABS: URINE RBC 21.9 /uL (0-23.9); URINE WBC 68.6 /uL (0-25.8)
[2020-11-17 01:00] LABS: LACTIC ACID 2.7 mmol/L (0.4-2.0)
[2020-11-17] MEDS ORDERED: LORazepam 1 MG TABLET ONE (02:48)
[2020-11-17] MEDS ORDERED: SODIUM CHLORIDE 1,000 ML IV STA (03:42)
[2020-11-17] MEDS ORDERED: ALBUTEROL SO4 HFA INHALER IH PRN (04:27)
[2020-11-17] MEDS: VASOPRESSIN 40 UNITS/100 ML BAG IV SCH (06:20)
[2020-11-17] MEDS: NYSTATIN 500,000 UNITS/5 ML SUSPENSION PO SCH ×2 (06:20→12:35)
[2020-11-17] MEDS ORDERED: AZITHROMYCIN IVPB 500 MG in DEXTROSE 5%-WATER - 250 ML IVPB SCH (10:00)
[2020-11-17] MEDS ORDERED: CEFTRIAXONE 1 GM in DEXTROSE 5%-WATER - 50 ML IVPB SCH (10:00)
[2020-11-17] MEDS ORDERED: ESCITALOPRAM OXALATE 10 MG TABLET PO SCH (10:00)
[2020-11-17] MEDS ORDERED: SULFAMETHOXAZOLE/TRIMETHOPRIM 800MG/160MG D.S. TABLET PO SCH (10:00)
[2020-11-17] MEDS ORDERED: PT OWN MED DRAWER 7, Y5N ONE (11:45)
[2020-11-17] MEDS: MUPIROCIN 2% TOPICAL OINTMENT FOR DECOLONIZATION NS SCH ×2 (11:51→21:46)
[2020-11-17 14:57] VITALS: BMI 18.8
[2020-11-17] MEDS: SODIUM CHLORIDE 1,000 ML IV SCH (17:03)
[2020-11-17 17:34] LABS: PH,URINE 5.5 (5.0-8.0); URINE APPEARANCE CLEAR; URINE BILIRUBIN NEGATIVE (NEGATIVE); URINE COLOR YELLOW; URINE GLUCOSE (UA) NEGATIVE (NEGATIVE); URINE KETONE NEGATIVE (NEGATIVE); URINE LEUK ESTERASE NEGATIVE (NEGATIVE); URINE NITRITE NEGATIVE (NEGATIVE); URINE PROTEIN NEGATIVE (NEGATIVE); URINE UROBILINOGEN 0.2 mg/dL (0.2-1.0)
[2020-11-17] MEDS ORDERED: LORazepam 2 MG/ML SDV VIAL IVPUSH ONE (19:12)
[2020-11-17] MEDS ORDERED: CHLORHEXIDINE GLUCONATE 4% CLEANSER FOR DECOLONIZATION TP SCH (22:00)
[2020-11-18] MEDS ORDERED: ALBUTEROL SO4 HFA INHALER IH PRN (07:23)
[2020-11-18] MEDS ORDERED: VASOPRESSIN 40 UNITS/100 ML BAG IV SCH (07:23)
[2020-11-18] MEDS: SODIUM CHLORIDE 1,000 ML IV SCH ×4 (07:46→23:49)
[2020-11-18] MEDS: NYSTATIN 500,000 UNITS/5 ML SUSPENSION PO SCH ×4 (07:46→23:45)
[2020-11-18] MEDS: VASOPRESSIN 40 UNITS/100 ML BAG IV SCH (07:46)
[2020-11-18] MEDS ORDERED: DEXTROSE 5%-WATER - 50 ML IVPB ONE (09:17)
[2020-11-18] MEDS ORDERED: cefTRIAXone SODIUM 1 GM VIAL ONE (09:17)
[2020-11-18] MEDS: ESCITALOPRAM OXALATE 10 MG TABLET PO SCH (09:34)
[2020-11-18] MEDS: SULFAMETHOXAZOLE/TRIMETHOPRIM 800MG/160MG D.S. TABLET PO SCH (09:34)
[2020-11-18] MEDS: MULTIVITAMINS (DAILY MVI) TABLET (FP) PO SCH (09:34)
[2020-11-18] MEDS ORDERED: MUPIROCIN 2% TOPICAL OINTMENT FOR DECOLONIZATION NS SCH (10:00)
[2020-11-18] MEDS: CEFTRIAXONE 1 GM in DEXTROSE 5%-WATER - 50 ML IVPB SCH ×2 (10:41→13:07)
[2020-11-18] MEDS ORDERED: LORazepam 1 MG TABLET PO ONE (11:15)
[2020-11-18] MEDS: LORazepam 1 MG TABLET PO PRN (20:10)
[2020-11-19] MEDS ORDERED: LORazepam 2 MG/ML SDV VIAL IVPUSH ONE (02:25)
[2020-11-19] MEDS: NYSTATIN 500,000 UNITS/5 ML SUSPENSION PO SCH ×4 (05:32→23:07)
[2020-11-19] MEDS ORDERED: cefTRIAXone SODIUM 1 GM VIAL ONE (08:58)
[2020-11-19] MEDS ORDERED: DEXTROSE 5%-WATER - 50 ML IVPB ONE (08:59)
[2020-11-19] MEDS: SODIUM CHLORIDE 1,000 ML IV SCH (09:45)
[2020-11-19] MEDS: CEFTRIAXONE 1 GM in DEXTROSE 5%-WATER - 50 ML IVPB SCH (09:45)
[2020-11-19] MEDS: MULTIVITAMINS (DAILY MVI) TABLET (FP) PO SCH (09:46)
[2020-11-19] MEDS: SULFAMETHOXAZOLE/TRIMETHOPRIM 800MG/160MG D.S. TABLET PO SCH (09:46)
[2020-11-19] MEDS: ESCITALOPRAM OXALATE 10 MG TABLET PO SCH (09:46)
[2020-11-19 09:54] LABS: HEMATOCRIT 39.6 % (35.4-49); HEMOGLOBIN 13.4 GM/dL (11.7-16.9); MCH 29.5 pg (25.7-33.7); MCHC 33.8 g/dl (32.0-35.9); MEAN CELL VOLUME 87.3 fl (80-96); MEAN PLT VOLUME 7.8 fl (7.5-11.1); PLATELET COUNT 250 10^3/uL (134-434); RBC 4.54 M/mm3 (4.00-5.60); RDW 14.3 % (11.9-15.9); WHITE BLOOD COUNT 5.6 K/mm3 (4.0-10.0)
[2020-11-19 10:36] LABS: ALBUMIN 2.6 g/dl (3.4-5.0); CALCIUM 8.1 mg/dL (8.5-10.1)
[2020-11-19 10:41] LABS: BILIRUBIN,TOTAL 0.9 mg/dL (0.2-1)
[2020-11-19 11:56] LABS: BLOOD UREA NITROGEN 10.1 mg/dL (7-18); CREATININE 0.9 mg/dL (0.55-1.3); TOT PROT 7.6 g/dl (6.4-8.2)
[2020-11-19] MEDS: LORazepam 1 MG TABLET PO PRN ×2 (13:46→23:08)
[2020-11-20] MEDS: NYSTATIN 500,000 UNITS/5 ML SUSPENSION PO SCH ×3 (06:12→17:00)
[2020-11-20 07:47] LABS: BASO % 2.2 % (0-2.0); HEMATOCRIT 40.1 % (35.4-49); HEMOGLOBIN 13.9 GM/dL (11.7-16.9); LYMPH % 22.6 % (8-40); MCH 29.5 pg (25.7-33.7); MCHC 34.6 g/dl (32.0-35.9); MEAN CELL VOLUME 85.4 fl (80-96); MEAN PLT VOLUME 7.4 fl (7.5-11.1); MONO % 14.1 % (3.8-10.2); NEUT % 56.1 % (42.8-82.8); PLATELET COUNT 271 10^3/uL (134-434); RDW 14.3 % (11.9-15.9); WHITE BLOOD COUNT 3.8 K/mm3 (4.0-10.0)
[2020-11-20 08:06] LABS: CALCIUM 8.8 mg/dL (8.5-10.1)
[2020-11-20 08:08] LABS: ALBUMIN 2.9 g/dl (3.4-5.0); BLOOD UREA NITROGEN 12.4 mg/dL (7-18)
[2020-11-20 08:10] LABS: CREATININE 0.9 mg/dL (0.55-1.3)
[2020-11-20 08:11] LABS: BILIRUBIN,TOTAL 0.3 mg/dL (0.2-1)
[2020-11-20 08:12] LABS: TOT PROT 7.2 g/dl (6.4-8.2)
[2020-11-20] MEDS ORDERED: DEXTROSE 5%-WATER - 50 ML IVPB ONE (09:03)
[2020-11-20] MEDS ORDERED: cefTRIAXone SODIUM 1 GM VIAL ONE (09:03)
[2020-11-20] MEDS: ESCITALOPRAM OXALATE 10 MG TABLET PO SCH (09:06)
[2020-11-20] MEDS: SULFAMETHOXAZOLE/TRIMETHOPRIM 800MG/160MG D.S. TABLET PO SCH (09:06)
[2020-11-20] MEDS: MULTIVITAMINS (DAILY MVI) TABLET (FP) PO SCH (09:06)
[2020-11-20] MEDS: LORazepam 1 MG TABLET PO PRN ×2 (09:09→21:11)
[2020-11-20] MEDS: CEFTRIAXONE 1 GM in DEXTROSE 5%-WATER - 50 ML IVPB SCH (09:09)
[2020-11-20] MEDS ORDERED: ALBUTEROL SO4 2.5/IPRATROPIUM 0.5 INH SOL 3 ML VIAL.NEB. NEB PRN (18:25)
[2020-11-21] MEDS: NYSTATIN 500,000 UNITS/5 ML SUSPENSION PO SCH ×6 (00:34→23:37)
[2020-11-21] MEDS ORDERED: SODIUM CHLORIDE 1,000 ML IV SCH (07:00)
[2020-11-21 07:16] LABS: BASO % 0.7 % (0-2.0); EOS % 6.5 % (0-4.5); HEMATOCRIT 41.7 % (35.4-49); HEMOGLOBIN 14.2 GM/dL (11.7-16.9); LYMPH % 24.8 % (8-40); MCH 29.1 pg (25.7-33.7); MEAN CELL VOLUME 85.5 fl (80-96); MEAN PLT VOLUME 7.4 fl (7.5-11.1); PLATELET COUNT 305 10^3/uL (134-434); RBC 4.87 M/mm3 (4.00-5.60); RDW 14.3 % (11.9-15.9); WHITE BLOOD COUNT 4.4 K/mm3 (4.0-10.0)
[2020-11-21 07:40] LABS: CALCIUM 8.5 mg/dL (8.5-10.1)
[2020-11-21 07:41] LABS: ALBUMIN 2.8 g/dl (3.4-5.0); BLOOD UREA NITROGEN 17.7 mg/dL (7-18)
[2020-11-21 07:45] LABS: BILIRUBIN,TOTAL 0.7 mg/dL (0.2-1); TOT PROT 7.5 g/dl (6.4-8.2)
[2020-11-21] MEDS ORDERED: cefTRIAXone SODIUM 1 GM VIAL ONE (09:19)
[2020-11-21] MEDS ORDERED: DEXTROSE 5%-WATER - 50 ML IVPB ONE (09:20)
[2020-11-21 09:24] LABS: ANISOCYTOSIS 0; MACROCYTOSIS 0; PLATELET ESTIMATE NORMAL
[2020-11-21] MEDS: ESCITALOPRAM OXALATE 10 MG TABLET PO SCH (09:30)
[2020-11-21] MEDS: CEFTRIAXONE 1 GM in DEXTROSE 5%-WATER - 50 ML IVPB SCH (09:30)
[2020-11-21] MEDS: SULFAMETHOXAZOLE/TRIMETHOPRIM 800MG/160MG D.S. TABLET PO SCH (09:30)
[2020-11-21] MEDS: MULTIVITAMINS (DAILY MVI) TABLET (FP) PO SCH (09:30)
[2020-11-21] MEDS: LORazepam 1 MG TABLET PO PRN ×2 (09:35→21:17)
[2020-11-21] MEDS ORDERED: AZITHROMYCIN IVPB 500 MG/250 ML BAG IVPB SCH (10:00)
[2020-11-21] MEDS ORDERED: ACETAMINOPHEN 1000 MG/100 ML VIAL (NON FORMULARY) IVPB ONE (14:55)
[2020-11-21] MEDS: NAPH,MB-DB/K PH,MBDB POWDER PACKET PO SCH ×2 (15:18→21:15)
[2020-11-21] MEDS: HEPARIN NA (PORCINE) 5,000 UNITS/ML 1ML VIAL SQ SCH ×2 (21:15→21:22)
[2020-11-22] MEDS: NYSTATIN 500,000 UNITS/5 ML SUSPENSION PO SCH ×4 (06:23→17:21)
[2020-11-22] MEDS: HEPARIN NA (PORCINE) 5,000 UNITS/ML 1ML VIAL SQ SCH ×3 (06:23→22:19)
[2020-11-22] MEDS: NAPH,MB-DB/K PH,MBDB POWDER PACKET PO SCH (06:24)
[2020-11-22] MEDS ORDERED: HYDROCORTISONE 1% TOPICAL LOTION 118 ML BOTTLE TP ONE (09:04)
[2020-11-22] MEDS ORDERED: DEXTROSE 5%-WATER - 50 ML IVPB ONE (09:51)
[2020-11-22] MEDS ORDERED: cefTRIAXone SODIUM 1 GM VIAL ONE (09:51)
[2020-11-22] MEDS: ESCITALOPRAM OXALATE 10 MG TABLET PO SCH (10:00)
[2020-11-22] MEDS: SULFAMETHOXAZOLE/TRIMETHOPRIM 800MG/160MG D.S. TABLET PO SCH (10:00)
[2020-11-22] MEDS: CEFTRIAXONE 1 GM in DEXTROSE 5%-WATER - 50 ML IVPB SCH (10:00)
[2020-11-22] MEDS: MULTIVITAMINS (DAILY MVI) TABLET (FP) PO SCH (10:00)
[2020-11-22] MEDS ORDERED: LORazepam 0.5 MG TABLET PO PRN (14:56)
[2020-11-22] MEDS: diphenhydrAMINE HCL 25 MG CAPSULE (FP) PO PRN (17:05)
[2020-11-22] MEDS ORDERED: diphenhydrAMINE HCL 25 MG CAPSULE (FP) PO ONE (17:25)
[2020-11-22] MEDS ORDERED: diphenhydrAMINE HCL 12.5 MG/5 ML UNIT-DOSE CUPS PO ONE (21:29)
[2020-11-23] MEDS: NYSTATIN 500,000 UNITS/5 ML SUSPENSION PO SCH ×4 (01:21→17:38)
[2020-11-23] MEDS: diphenhydrAMINE HCL 25 MG CAPSULE (FP) PO PRN ×2 (03:27→09:16)
[2020-11-23] MEDS: HEPARIN NA (PORCINE) 5,000 UNITS/ML 1ML VIAL SQ SCH ×3 (06:42→21:09)
[2020-11-23 08:24] LABS: BASO % 0.3 % (0-2.0); EOS % 1.1 % (0-4.5); HEMATOCRIT 37.6 % (35.4-49); HEMOGLOBIN 12.9 GM/dL (11.7-16.9); LYMPH % 29.2 % (8-40); MCH 29.7 pg (25.7-33.7); MCHC 34.4 g/dl (32.0-35.9); MEAN CELL VOLUME 86.4 fl (80-96); MEAN PLT VOLUME 7.4 fl (7.5-11.1); MONO % 4.7 % (3.8-10.2); NEUT % 64.7 % (42.8-82.8); PLATELET COUNT 320 10^3/uL (134-434); RBC 4.35 M/mm3 (4.00-5.60); RDW 14.2 % (11.9-15.9); WHITE BLOOD COUNT 3.9 K/mm3 (4.0-10.0)
[2020-11-23 08:44] LABS: CALCIUM 8.1 mg/dL (8.5-10.1)
[2020-11-23 08:45] LABS: ALBUMIN 2.8 g/dl (3.4-5.0); BLOOD UREA NITROGEN 14.4 mg/dL (7-18)
[2020-11-23 08:48] LABS: CREATININE 0.9 mg/dL (0.55-1.3)
[2020-11-23 08:50] LABS: BILIRUBIN,TOTAL 0.6 mg/dL (0.2-1)
[2020-11-23 08:51] LABS: TOT PROT 6.8 g/dl (6.4-8.2)
[2020-11-23] MEDS: ESCITALOPRAM OXALATE 10 MG TABLET PO SCH (09:14)
[2020-11-23] MEDS: MULTIVITAMINS (DAILY MVI) TABLET (FP) PO SCH (09:14)
[2020-11-23] MEDS: SULFAMETHOXAZOLE/TRIMETHOPRIM 800MG/160MG D.S. TABLET PO SCH (09:14)
[2020-11-23] MEDS: FAMOTIDINE 20 MG/50 ML IVPB 20 MG/50 ML MG IVPB SCH ×2 (13:27→21:09)
[2020-11-23] MEDS: predniSONE 20 MG TABLET (UD) PO SCH (13:27)
[2020-11-23] MEDS: diphenhydrAMINE HCL 25 MG CAPSULE (FP) PO SCH ×2 (15:51→21:07)
[2020-11-24] MEDS: NYSTATIN 500,000 UNITS/5 ML SUSPENSION PO SCH ×5 (00:03→23:19)
[2020-11-24] MEDS: diphenhydrAMINE HCL 25 MG CAPSULE (FP) PO SCH ×5 (02:23→23:18)
[2020-11-24] MEDS: HEPARIN NA (PORCINE) 5,000 UNITS/ML 1ML VIAL SQ SCH ×3 (05:49→21:38)
[2020-11-24 08:12] LABS: HEMATOCRIT 36.4 % (35.4-49); HEMOGLOBIN 12.4 GM/dL (11.7-16.9); MCH 29.8 pg (25.7-33.7); MEAN CELL VOLUME 87.5 fl (80-96); PLATELET COUNT 342 10^3/uL (134-434); RBC 4.16 M/mm3 (4.00-5.60); RDW 14.1 % (11.9-15.9); WHITE BLOOD COUNT 4.1 K/mm3 (4.0-10.0)
[2020-11-24 08:23] LABS: CALCIUM 8.3 mg/dL (8.5-10.1)
[2020-11-24 08:24] LABS: BLOOD UREA NITROGEN 15.8 mg/dL (7-18)
[2020-11-24 08:27] LABS: CREATININE 0.9 mg/dL (0.55-1.3)
[2020-11-24] MEDS: ESCITALOPRAM OXALATE 10 MG TABLET PO SCH (09:16)
[2020-11-24] MEDS: predniSONE 20 MG TABLET (UD) PO SCH (09:16)
[2020-11-24] MEDS: MULTIVITAMINS (DAILY MVI) TABLET (FP) PO SCH (09:16)
[2020-11-24] MEDS: FAMOTIDINE 20 MG/50 ML IVPB 20 MG/50 ML MG IVPB SCH ×2 (09:17→21:38)
[2020-11-25] MEDS: diphenhydrAMINE HCL 25 MG CAPSULE (FP) PO SCH ×4 (05:12→23:09)
[2020-11-25] MEDS: HEPARIN NA (PORCINE) 5,000 UNITS/ML 1ML VIAL SQ SCH (05:13)
[2020-11-25] MEDS: NYSTATIN 500,000 UNITS/5 ML SUSPENSION PO SCH ×4 (05:13→23:13)
[2020-11-25] MEDS: predniSONE 20 MG TABLET (UD) PO SCH (10:37)
[2020-11-25] MEDS: FAMOTIDINE 20 MG/50 ML IVPB 20 MG/50 ML MG IVPB SCH ×3 (10:37→21:41)
[2020-11-25] MEDS: ESCITALOPRAM OXALATE 10 MG TABLET PO SCH ×2 (10:37→10:43)
[2020-11-25] MEDS: MULTIVITAMINS (DAILY MVI) TABLET (FP) PO SCH (10:37)
[2020-11-25] MEDS: LORATADINE 10 MG TABLET PO SCH (12:46)
[2020-11-25] MEDS ORDERED: valACYclovir HCL 1000 MG TABLET PO SCH (16:45)
[2020-11-25] MEDS ORDERED: valACYclovir HCL 500 MG TABLET (FP) PO SCH (16:57)
[2020-11-26] MEDS: diphenhydrAMINE HCL 25 MG CAPSULE (FP) PO SCH ×2 (05:33→11:37)
[2020-11-26] MEDS: NYSTATIN 500,000 UNITS/5 ML SUSPENSION PO SCH ×2 (05:33→11:39)
[2020-11-26] MEDS: MULTIVITAMINS (DAILY MVI) TABLET (FP) PO SCH (09:00)
[2020-11-26] MEDS: ESCITALOPRAM OXALATE 10 MG TABLET PO SCH (09:01)
[2020-11-26] MEDS: predniSONE 20 MG TABLET (UD) PO SCH (09:01)
[2020-11-26] MEDS: FAMOTIDINE 20 MG/50 ML IVPB 20 MG/50 ML MG IVPB SCH (09:01)
[2020-11-26] MEDS: LORATADINE 10 MG TABLET PO SCH (09:01)
[2020-11-26 09:12] VITALS: BP 95/45; PULSE 57; TEMP 98.5
[2020-11-26] MEDS ORDERED: ENOXAPARIN NA (PORCINE) 40 MG/0.4 ML DISP.SYRIN SQ SCH (10:00)
== END 2020-11-26 11:59 | DRG 890 ==
LOC: JER 16:10 → JERBED 23:57 → JICU 11-17 04:38 → J7W 11-17 21:15
PROVIDERS: ADMIT Internal Medicine Pulmonary Disease; ATTEND Internal Medicine
DX: A41.9 Sepsis, unspecified organism (principal); N17.9 Acute kidney failure, unspecified; B20 Human immunodeficiency virus [HIV] disease; R65.21 Severe sepsis with septic shock; J18.9 Pneumonia, unspecified organism; M62.82 Rhabdomyolysis; B37.0 Candidal stomatitis; R64 Cachexia; J90 Pleural effusion, not elsewhere classified; E87.2 Acidosis; F11.10 Opioid abuse, uncomplicated; F10.10 Alcohol abuse, uncomplicated; F14.10 Cocaine abuse, uncomplicated; M87.852 Other osteonecrosis, left femur; E83.51 Hypocalcemia; I10 Essential (primary) hypertension; E88.09 Other disorders of plasma-protein metabolism, not elsewhere classified; M87.851 Other osteonecrosis, right femur; E86.9 Volume depletion, unspecified; Z68.1 Body mass index [BMI] 19.9 or less, adult; Z91.14 Patient's other noncompliance with medication regimen; K56.7 Ileus, unspecified; F41.8 Other specified anxiety disorders; F32.9 Major depressive disorder, single episode, unspecified; F41.9 Anxiety disorder, unspecified; E86.1 Hypovolemia; J43.9 Emphysema, unspecified; L27.0 Generalized skin eruption due to drugs and medicaments taken internally; T37.8X5A Adverse effect of other specified systemic anti-infectives and antiparasitics, initial encounter; K86.1 Other chronic pancreatitis; B00.1 Herpesviral vesicular dermatitis; S02.40EA Zygomatic fracture, right side, initial encounter for closed fracture; S02.40CA Maxillary fracture, right side, initial encounter for closed fracture; S02.841A Fracture of lateral orbital wall, right side, initial encounter for closed fracture; W19.XXXA Unspecified fall, initial encounter; Y93.89 Activity, other specified; Y92.830 Public park as the place of occurrence of the external cause; Y99.8 Other external cause status
CPT/HCPCS: 36415; 70450-TC; 70486-TC; 71045-TC-FY; 71250-TC; 72125-TC; 73590-TC-RT-FY; 74176-TC; 80048; 80053; 80307; 81003; 82550; 82553; 83605; 83615; 83690; 83735; 84100; 84484; 85025; 85027; 85610; 85730; 86359; 86360; 87040; 87086; 87328; 87329; 87899; 93005; 93010; 97116-GP; 97162-GP; 99285-25; C9803; J0131; J1644; J3490; U0003; U0005

== ENCOUNTER 2021-02-09 19:22 | Observation (INO) | payer OTHER ==
[2021-02-09] MEDS ORDERED: SODIUM CHLORIDE 0.9% 500 ML INFUS.BAG IV ONE (21:41)
[2021-02-09 22:21] LABS: VENOUS BASE EXCESS -1.3 mmol/L (-2-2); VENOUS PCO2 43.1 mmHg (38-52); VENOUS PH 7.366 (7.310-7.410)
[2021-02-09 22:22] LABS: BASO % 0.6 % (0-2.0); EOS % 1.4 % (0-4.5); HEMATOCRIT 36.7 % (35.4-49); HEMOGLOBIN 12.4 GM/dL (11.7-16.9); LYMPH % 13.3 % (8-40); MCH 28.7 pg (25.7-33.7); MCHC 33.9 g/dl (32.0-35.9); MEAN CELL VOLUME 84.7 fl (80-96); MEAN PLT VOLUME 6.6 fl (7.5-11.1); MONO % 9.3 % (3.8-10.2); NEUT % 75.4 % (42.8-82.8); PLATELET COUNT 407 10^3/uL (134-434); RBC 4.33 M/mm3 (4.00-5.60); RDW 16.2 % (11.9-15.9); WHITE BLOOD COUNT 5.1 K/mm3 (4.0-10.0)
[2021-02-09 22:28] LABS: INR 0.97 (0.83-1.09); PROTHROMBIN TIME (PATIENT) 10.9 SEC (9.7-13.0)
[2021-02-09 22:31] LABS: ACTIVATED PTT 30.5 SECONDS (25.2-36.5)
[2021-02-09 22:41] LABS: CHLORIDE 104 mmol/L (98-107); SODIUM 136 mmol/L (136-145)
[2021-02-09 22:43] LABS: ALBUMIN 2.9 g/dl (3.4-5.0); ANION GAP 5 MMOL/L (8-16); BLOOD UREA NITROGEN 24.8 mg/dL (7-18); CALCIUM 8.6 mg/dL (8.5-10.1); CO2 27 mmol/L (21-32); GLUCOSE,RANDOM 91 mg/dL (74-106)
[2021-02-09 22:46] LABS: CREATININE 0.8 mg/dL (0.55-1.3); SGOT/AST 25 U/L (15-37); SGPT/ALT 20 U/L (13-61)
[2021-02-09 22:48] LABS: BILIRUBIN,TOTAL 0.1 mg/dL (0.2-1); TOT PROT 7.6 g/dl (6.4-8.2)
[2021-02-09 22:49] LABS: ALK PHOS 66 U/L (45-117)
[2021-02-09 23:55] LABS: PH,URINE 5.5 (5.0-8.0); URINE APPEARANCE CLEAR; URINE BILIRUBIN NEGATIVE (NEGATIVE); URINE COLOR YELLOW; URINE GLUCOSE (UA) NEGATIVE (NEGATIVE); URINE KETONE NEGATIVE (NEGATIVE); URINE LEUK ESTERASE NEGATIVE (NEGATIVE); URINE NITRITE NEGATIVE (NEGATIVE); URINE PROTEIN NEGATIVE (NEGATIVE); URINE UROBILINOGEN 0.2 mg/dL (0.2-1.0)
[2021-02-10] MEDS ORDERED: LORazepam 1 MG TABLET PO ONE (00:52)
[2021-02-10] MEDS: MAG HYDROX/ALH/SMC/DPHA/LIDO 240 ML MOUTHWASH MM SCH ×4 (02:20→18:38)
[2021-02-10] MEDS ORDERED: LORazepam 1 MG TABLET ONE (02:25)
[2021-02-10] MEDS ORDERED: FOLIC ACID INJECTION - 1 MG, THIAMINE HCL 100 MG in SODIUM CHLORIDE 998.8 ML IVPB ONE (02:30)
[2021-02-10 03:35] VITALS: BMI 17.6
[2021-02-10] MEDS: INSULIN SLIDING SCALE (NOVOLOG) 1 VIAL SQ SCH ×4 (06:11→22:01)
[2021-02-10 10:22] LABS: HEMATOCRIT 34.3 % (35.4-49); HEMOGLOBIN 11.7 GM/dL (11.7-16.9); MCHC 34.2 g/dl (32.0-35.9); MEAN CELL VOLUME 84.7 fl (80-96); MEAN PLT VOLUME 6.5 fl (7.5-11.1); PLATELET COUNT 388 10^3/uL (134-434); RBC 4.05 M/mm3 (4.00-5.60); RDW 16.7 % (11.9-15.9); WHITE BLOOD COUNT 3.1 K/mm3 (4.0-10.0)
[2021-02-10] MEDS: ENOXAPARIN NA (PORCINE) 30 MG/0.3 ML DISP.SYRIN SQ SCH (10:41)
[2021-02-10] MEDS: NICOTINE 7 MG/24 HOURS TOPICAL PATCH TD SCH (10:41)
[2021-02-10 10:51] LABS: ALBUMIN 2.5 g/dl (3.4-5.0)
[2021-02-10 10:52] LABS: BLOOD UREA NITROGEN 18.6 mg/dL (7-18); MAGNESIUM 2.2 mg/dL (1.8-2.4)
[2021-02-10 10:55] LABS: CREATININE 0.9 mg/dL (0.55-1.3)
[2021-02-10 10:56] LABS: BILIRUBIN,TOTAL 0.2 mg/dL (0.2-1); TOT PROT 6.6 g/dl (6.4-8.2)
[2021-02-11] MEDS: MAG HYDROX/ALH/SMC/DPHA/LIDO 240 ML MOUTHWASH MM SCH ×3 (00:05→11:06)
[2021-02-11] MEDS: INSULIN SLIDING SCALE (NOVOLOG) 1 VIAL SQ SCH ×4 (06:09→21:30)
[2021-02-11] MEDS ORDERED: PT OWN MED DRAWER 7, Y5N ONE ×2 (10:49→13:15)
[2021-02-11] MEDS: ENOXAPARIN NA (PORCINE) 30 MG/0.3 ML DISP.SYRIN SQ SCH (11:05)
[2021-02-11] MEDS: NICOTINE 7 MG/24 HOURS TOPICAL PATCH TD SCH (11:05)
[2021-02-11] MEDS ORDERED: SODIUM CHLORIDE 1,000 ML IV SCH ×2 (11:15→16:49)
[2021-02-11] MEDS: BICTEGRAV/EMTRICIT/TENOFOV (BIKTARVY) 50-200-25 MG TABLET PO SCH (13:01)
[2021-02-11] MEDS: ATOVAQUONE 750 MG/5 ML (UNIT-DOSE PACKAGING) PO SCH (13:01)
[2021-02-12] MEDS: INSULIN SLIDING SCALE (NOVOLOG) 1 VIAL SQ SCH ×4 (07:01→21:20)
[2021-02-12] MEDS ORDERED: ACETAMINOPHEN 500 MG TABLET (FP) PO PRN (07:59)
[2021-02-12] MEDS ORDERED: ACETAMINOPHEN 1000 MG/100 ML VIAL IVPB PRN (08:00)
[2021-02-12 09:48] LABS: BASO % 0.5 % (0-2.0); EOS % 4.4 % (0-4.5); HEMATOCRIT 36.9 % (35.4-49); HEMOGLOBIN 12.1 GM/dL (11.7-16.9); LYMPH % 18.4 % (8-40); MCHC 32.9 g/dl (32.0-35.9); MEAN CELL VOLUME 85.1 fl (80-96); MEAN PLT VOLUME 6.8 fl (7.5-11.1); MONO % 12.9 % (3.8-10.2); NEUT % 63.8 % (42.8-82.8); PLATELET COUNT 387 10^3/uL (134-434); RBC 4.34 M/mm3 (4.00-5.60); RDW 16.8 % (11.9-15.9); WHITE BLOOD COUNT 3.4 K/mm3 (4.0-10.0)
[2021-02-12] MEDS ORDERED: PT OWN MED DRAWER 7, Y5N ONE (09:54)
[2021-02-12] MEDS: FOLIC ACID 1 MG TABLET (FP) PO SCH (10:03)
[2021-02-12] MEDS: ATOVAQUONE 750 MG/5 ML (UNIT-DOSE PACKAGING) PO SCH (10:03)
[2021-02-12] MEDS: ENOXAPARIN NA (PORCINE) 30 MG/0.3 ML DISP.SYRIN SQ SCH (10:03)
[2021-02-12] MEDS: BICTEGRAV/EMTRICIT/TENOFOV (BIKTARVY) 50-200-25 MG TABLET PO SCH (10:03)
[2021-02-12] MEDS: THIAMINE HCL 100 MG TABLET (FP) PO SCH (10:03)
[2021-02-12] MEDS: MULTIVIT-MINERALS ORAL LIQUID PO SCH (10:03)
[2021-02-12] MEDS: NICOTINE 7 MG/24 HOURS TOPICAL PATCH TD SCH (10:04)
[2021-02-12 10:13] LABS: ALBUMIN 2.6 g/dl (3.4-5.0); BLOOD UREA NITROGEN 20.6 mg/dL (7-18); CALCIUM 8.4 mg/dL (8.5-10.1); MAGNESIUM 2.1 mg/dL (1.8-2.4)
[2021-02-12 10:16] LABS: CREATININE 0.8 mg/dL (0.55-1.3)
[2021-02-12 10:17] LABS: PHOSPHOROUS 3.2 mg/dL (2.5-4.9)
[2021-02-12 10:18] LABS: BILIRUBIN,TOTAL 0.1 mg/dL (0.2-1); TOT PROT 6.9 g/dl (6.4-8.2)
[2021-02-12] MEDS: LORazepam 0.5 MG TABLET PO PRN ×2 (11:10→19:53)
[2021-02-12] MEDS ORDERED: SODIUM CHLORIDE 1,000 ML IV SCH (11:15)
[2021-02-12] MEDS ORDERED: INSULIN (NOVOLOG) ASPART 100 UNITS/ML 10ML VIAL ONE (12:27)
[2021-02-13] MEDS: INSULIN SLIDING SCALE (NOVOLOG) 1 VIAL SQ SCH (06:22)
[2021-02-13 09:02] LABS: EOS % 4.7 % (0-4.5); HEMATOCRIT 38.2 % (35.4-49); HEMOGLOBIN 12.7 GM/dL (11.7-16.9); LYMPH % 30.6 % (8-40); MCH 28.4 pg (25.7-33.7); MCHC 33.2 g/dl (32.0-35.9); MEAN CELL VOLUME 85.6 fl (80-96); MEAN PLT VOLUME 6.7 fl (7.5-11.1); MONO % 12.8 % (3.8-10.2); NEUT % 50.9 % (42.8-82.8); PLATELET COUNT 444 10^3/uL (134-434); RBC 4.46 M/mm3 (4.00-5.60); WHITE BLOOD COUNT 3.4 K/mm3 (4.0-10.0)
[2021-02-13] MEDS ORDERED: PT OWN MED DRAWER 7, Y5N ONE ×2 (11:05→11:28)
[2021-02-13] MEDS: FOLIC ACID 1 MG TABLET (FP) PO SCH (11:22)
[2021-02-13] MEDS: THIAMINE HCL 100 MG TABLET (FP) PO SCH (11:22)
[2021-02-13] MEDS: ENOXAPARIN NA (PORCINE) 30 MG/0.3 ML DISP.SYRIN SQ SCH (11:22)
[2021-02-13] MEDS: LORazepam 0.5 MG TABLET PO PRN ×2 (11:35→21:03)
[2021-02-13] MEDS: MULTIVIT-MINERALS ORAL LIQUID PO SCH (11:58)
[2021-02-13] MEDS: ATOVAQUONE 750 MG/5 ML (UNIT-DOSE PACKAGING) PO SCH ×2 (11:58→12:00)
[2021-02-13] MEDS: BICTEGRAV/EMTRICIT/TENOFOV (BIKTARVY) 50-200-25 MG TABLET PO SCH (11:58)
[2021-02-13] MEDS: NICOTINE 7 MG/24 HOURS TOPICAL PATCH TD SCH (11:58)
[2021-02-13 12:35] LABS: BILIRUBIN,TOTAL 0.2 mg/dL (0.2-1); BLOOD UREA NITROGEN 16.8 mg/dL (7-18); CALCIUM 8.7 mg/dL (8.5-10.1); CREATININE 0.9 mg/dL (0.55-1.3); MAGNESIUM 2.2 mg/dL (1.8-2.4); TOT PROT 7.7 g/dl (6.4-8.2)
[2021-02-13 13:28] LABS: PHOSPHOROUS 3.7 mg/dL (2.5-4.9)
[2021-02-13] MEDS ORDERED: SODIUM CHLORIDE 1,000 ML IV SCH (19:15)
[2021-02-14 06:08] VITALS: PULSE 82; TEMP 98
[2021-02-14 06:54] VITALS: BP 95/57
[2021-02-14 08:21] LABS: HEMATOCRIT 39.3 % (35.4-49); HEMOGLOBIN 13.2 GM/dL (11.7-16.9); MCHC 33.6 g/dl (32.0-35.9); MEAN CELL VOLUME 86.2 fl (80-96); MEAN PLT VOLUME 6.6 fl (7.5-11.1); PLATELET COUNT 406 10^3/uL (134-434); RBC 4.56 M/mm3 (4.00-5.60); RDW 16.6 % (11.9-15.9); WHITE BLOOD COUNT 4.6 K/mm3 (4.0-10.0)
[2021-02-14] MEDS ORDERED: PT OWN MED DRAWER 7, Y5N ONE ×2 (09:11→09:59)
[2021-02-14] MEDS: ENOXAPARIN NA (PORCINE) 30 MG/0.3 ML DISP.SYRIN SQ SCH ×2 (09:32→09:35)
[2021-02-14] MEDS: FOLIC ACID 1 MG TABLET (FP) PO SCH (09:32)
[2021-02-14] MEDS: THIAMINE HCL 100 MG TABLET (FP) PO SCH (09:32)
[2021-02-14] MEDS: BICTEGRAV/EMTRICIT/TENOFOV (BIKTARVY) 50-200-25 MG TABLET PO SCH (09:32)
[2021-02-14] MEDS: MULTIVIT-MINERALS ORAL LIQUID PO SCH ×2 (09:32→09:35)
[2021-02-14] MEDS: ATOVAQUONE 750 MG/5 ML (UNIT-DOSE PACKAGING) PO SCH (09:33)
[2021-02-14] MEDS: NICOTINE 7 MG/24 HOURS TOPICAL PATCH TD SCH (09:35)
[2021-02-14 12:01] LABS: BILIRUBIN,TOTAL 0.1 mg/dL (0.2-1); BLOOD UREA NITROGEN 21.7 mg/dL (7-18); CREATININE 0.9 mg/dL (0.55-1.3); TOT PROT 7.7 g/dl (6.4-8.2)
== END 2021-02-14 10:40 | disposition home or self-care (01) ==
LOC: JER 19:22 → JERBED 23:18 → INTOOBSV 23:18 → UNDOADMOB 23:18 → JERBED 02-10 02:52 → J8W 02-10 02:52
PROVIDERS: ADMIT Internal Medicine; ATTEND Internal Medicine
PROC: 3E033GC Introduction of Other Therapeutic Substance into Peripheral Vein, Percutaneous Approach (ICD-10-PCS; principal; 2021-02-12)
PROC: 3E0337Z Introduction of Electrolytic and Water Balance Substance into Peripheral Vein, Percutaneous Approach (ICD-10-PCS; 2021-02-12)
DX: B20 Human immunodeficiency virus [HIV] disease (principal); Z91.14 Patient's other noncompliance with medication regimen; I95.9 Hypotension, unspecified; E86.0 Dehydration; M25.552 Pain in left hip; R53.1 Weakness; R06.02 Shortness of breath; R61 Generalized hyperhidrosis; K13.79 Other lesions of oral mucosa; E78.00 Pure hypercholesterolemia, unspecified; F99 Mental disorder, not otherwise specified; J45.909 Unspecified asthma, uncomplicated; Z86.14 Personal history of Methicillin resistant Staphylococcus aureus infection; Z87.440 Personal history of urinary (tract) infections; E11.9 Type 2 diabetes mellitus without complications; F19.10 Other psychoactive substance abuse, uncomplicated; R05.9 Cough, unspecified; L53.9 Erythematous condition, unspecified; M87.9 Osteonecrosis, unspecified; Z29.9 Encounter for prophylactic measures, unspecified; F64.0 Transsexualism; R64 Cachexia; Z91.013 Allergy to seafood; R19.7 Diarrhea, unspecified; Z88.8 Allergy status to other drugs, medicaments and biological substances; F11.20 Opioid dependence, uncomplicated; Z72.0 Tobacco use
CPT/HCPCS: 36415; 71045-TC-FY; 73523-TC-FY; 80053; 81003; 82803; 82962; 83605; 83735; 84100; 84484; 85025; 85027; 85610; 85730; 86359; 86360; 87040; 87045; 87046; 87086; 87177; 87205; 87209; 87328; 87329; 87798; 87804; 87807; 87899; 93005; 93010; 96361; 96365; 97116-GP; 97161-GP; 99285-25; C9803; G0378; U0003; U0005

== ENCOUNTER 2021-02-27 03:44 | Emergency (ER) | payer OTHER ==
[2021-02-27 04:08] VITALS: BP 118/77; PULSE 88; TEMP 97.7; BMI 14.6
== END 2021-02-27 05:42 | disposition left against medical advice (07) ==
LOC: JER 03:44
DX: R05.1 Acute cough (principal); Z21 Asymptomatic human immunodeficiency virus [HIV] infection status
CPT/HCPCS: 71046-TC-FY; 93005; 93010; 99285-25

== ENCOUNTER 2021-09-02 12:44 | Inpatient (IN) | payer OTHER ==
[2021-09-02] MEDS ORDERED: ACETAMINOPHEN 1000 MG/100 ML BAG IVPB ONE (14:12)
[2021-09-02] MEDS ORDERED: ACETAMINOPHEN INJECTION 100 ML IVPB ONE (14:32)
[2021-09-02 15:57] LABS: BASO % 0.6 % (0-2.0); EOS % 6.5 % (0-4.5); HEMATOCRIT 37.1 % (35.4-49); HEMOGLOBIN 11.9 GM/dL (11.7-16.9); MCH 27.8 pg (25.7-33.7); MEAN PLT VOLUME 6.6 fl (7.5-11.1); MONO % 9.3 % (3.8-10.2); NEUT % 59.6 % (42.8-82.8); PLATELET COUNT 448 10^3/uL (134-434); RBC 4.27 M/mm3 (4.00-5.60); RDW 21.7 % (11.9-15.9); WHITE BLOOD COUNT 4.4 K/mm3 (4.0-10.0)
[2021-09-02 15:59] LABS: PH,URINE 6.5 (5.0-8.0); URINE APPEARANCE CLEAR; URINE BILIRUBIN NEGATIVE (NEGATIVE); URINE COLOR YELLOW; URINE GLUCOSE (UA) NEGATIVE (NEGATIVE); URINE KETONE TRACE (NEGATIVE); URINE LEUK ESTERASE NEGATIVE (NEGATIVE); URINE NITRITE NEGATIVE (NEGATIVE); URINE PROTEIN NEGATIVE (NEGATIVE); URINE UROBILINOGEN 0.2 mg/dL (0.2-1.0)
[2021-09-02 16:16] LABS: BLOOD UREA NITROGEN 20.1 mg/dL (7-18); CALCIUM 8.8 mg/dL (8.5-10.1); MAGNESIUM 2.2 mg/dL (1.8-2.4)
[2021-09-02 16:19] LABS: CREATININE 0.8 mg/dL (0.55-1.3)
[2021-09-02 16:21] LABS: BILIRUBIN,TOTAL 0.3 mg/dL (0.2-1); TOT PROT 7.1 g/dl (6.4-8.2)
[2021-09-02 16:35] LABS: ANISOCYTOSIS 1+; MACROCYTOSIS 1+
[2021-09-02] MEDS ORDERED: KETOROLAC TROMETHAMINE 30 MG/1 ML VIAL IVPUSH ONE (18:11)
[2021-09-02] MEDS ORDERED: KETOROLAC TROMETHAMINE 30 MG/1 ML VIAL ONE (18:20)
[2021-09-02] MEDS: SODIUM CHLORIDE 1,000 ML IV SCH (18:40)
[2021-09-03] MEDS ORDERED: MELATONIN 5 MG TABLETS PO ONE ×2 (00:16→21:41)
[2021-09-03] MEDS ORDERED: MELATONIN 5 MG TABLETS ONE (00:21)
[2021-09-03 07:49] LABS: EOS % 5.8 % (0-4.5); HEMOGLOBIN 11.9 GM/dL (11.7-16.9); LYMPH % 19.5 % (8-40); MCH 27.5 pg (25.7-33.7); MEAN CELL VOLUME 85.8 fl (80-96); MEAN PLT VOLUME 6.4 fl (7.5-11.1); MONO % 8.7 % (3.8-10.2); PLATELET COUNT 479 10^3/uL (134-434); RBC 4.31 M/mm3 (4.00-5.60); RDW 21.8 % (11.9-15.9); WHITE BLOOD COUNT 4.9 K/mm3 (4.0-10.0)
[2021-09-03 08:16] LABS: CALCIUM 8.6 mg/dL (8.5-10.1)
[2021-09-03 08:17] LABS: ALBUMIN 2.8 g/dl (3.4-5.0); BLOOD UREA NITROGEN 23.3 mg/dL (7-18)
[2021-09-03 08:20] LABS: CREATININE 0.8 mg/dL (0.55-1.3)
[2021-09-03] MEDS ORDERED: ACETAMINOPHEN 1000 MG/100 ML BAG IVPB PRN (08:20)
[2021-09-03 08:21] LABS: BILIRUBIN,TOTAL 0.2 mg/dL (0.2-1); TOT PROT 6.6 g/dl (6.4-8.2)
[2021-09-03] MEDS ORDERED: traMADol HCL 50 MG TABLET ONE ×2 (08:50→15:13)
[2021-09-03] MEDS ORDERED: ENOXAPARIN NA (PORCINE) 40 MG/0.4 ML DISP.SYRIN SQ ONE (08:50)
[2021-09-03] MEDS: traMADol HCL 50 MG TABLET PO PRN ×2 (09:07→15:10)
[2021-09-03] MEDS: ENOXAPARIN NA (PORCINE) 40 MG/0.4 ML DISP.SYRIN SQ SCH (09:07)
[2021-09-03] MEDS: BICTEGRAV/EMTRICIT/TENOFOV (BIKTARVY) 50-200-25 MG TABLET PO SCH (09:07)
[2021-09-03] MEDS ORDERED: ACETAMINOPHEN INJECTION 100 ML IVPB ONE (18:16)
[2021-09-03] MEDS: SODIUM CHLORIDE 1,000 ML IV SCH (19:27)
[2021-09-04] MEDS: ENOXAPARIN NA (PORCINE) 40 MG/0.4 ML DISP.SYRIN SQ SCH (09:23)
[2021-09-04] MEDS: BICTEGRAV/EMTRICIT/TENOFOV (BIKTARVY) 50-200-25 MG TABLET PO SCH (09:23)
[2021-09-04 09:48] LABS: BASO % 0.6 % (0-2.0); EOS % 6.4 % (0-4.5); HEMATOCRIT 37.3 % (35.4-49); HEMOGLOBIN 12.3 GM/dL (11.7-16.9); LYMPH % 21.8 % (8-40); MCH 28.3 pg (25.7-33.7); MCHC 32.9 g/dl (32.0-35.9); MEAN CELL VOLUME 86.1 fl (80-96); MEAN PLT VOLUME 6.8 fl (7.5-11.1); MONO % 10.3 % (3.8-10.2); NEUT % 60.9 % (42.8-82.8); PLATELET COUNT 473 10^3/uL (134-434); RBC 4.34 M/mm3 (4.00-5.60)
[2021-09-04 10:02] LABS: ALBUMIN 2.9 g/dl (3.4-5.0); BLOOD UREA NITROGEN 15.6 mg/dL (7-18); MAGNESIUM 2.2 mg/dL (1.8-2.4)
[2021-09-04 10:07] LABS: BILIRUBIN,TOTAL 0.4 mg/dL (0.2-1); CREATININE 0.8 mg/dL (0.55-1.3)
[2021-09-04 10:08] LABS: TOT PROT 6.6 g/dl (6.4-8.2)
[2021-09-04] MEDS: ATOVAQUONE 750 MG/5 ML (UNIT-DOSE PACKAGING) PO SCH ×2 (10:36→12:33)
[2021-09-04] MEDS ORDERED: ALBUTEROL SO4 0.083% IH SOL 2.5 MG/3 ML VIAL.NEB. NEB PRN (10:58)
[2021-09-04] MEDS: BUDESONIDE/FORMETEROL FUMARATE 160/4.5 mcg INHALER IH SCH ×2 (12:32→21:04)
[2021-09-04] MEDS: ACETAMINOPHEN 325 MG TABLET (FP) PO PRN ×2 (12:49→19:02)
[2021-09-04] MEDS: traMADol HCL 50 MG TABLET PO PRN (14:38)
[2021-09-04] MEDS: ALBUTEROL SO4 2.5/IPRATROPIUM 0.5 INH SOL 3 ML VIAL.NEB. NEB SCH ×2 (14:42→19:15)
[2021-09-05] MEDS: ALBUTEROL SO4 2.5/IPRATROPIUM 0.5 INH SOL 3 ML VIAL.NEB. NEB SCH ×3 (08:00→20:24)
[2021-09-05] MEDS: traMADol HCL 50 MG TABLET PO PRN (10:27)
[2021-09-05] MEDS: ENOXAPARIN NA (PORCINE) 40 MG/0.4 ML DISP.SYRIN SQ SCH (10:30)
[2021-09-05] MEDS: BICTEGRAV/EMTRICIT/TENOFOV (BIKTARVY) 50-200-25 MG TABLET PO SCH (11:40)
[2021-09-05] MEDS: ATOVAQUONE 750 MG/5 ML (UNIT-DOSE PACKAGING) PO SCH (11:42)
[2021-09-05] MEDS: BUDESONIDE/FORMETEROL FUMARATE 160/4.5 mcg INHALER IH SCH ×2 (11:42→22:08)
[2021-09-05 14:39] VITALS: BMI 19.6
[2021-09-05] MEDS ORDERED: CLINDAMYCIN 600MG PREMIX IVPB 600 MG/50 ML BAG IVPB SCH (18:00)
[2021-09-05 18:49] VITALS: BP 102/54; PULSE 56; TEMP 97.3
[2021-09-05] MEDS: CLINDAMYCIN HCL 150 MG CAPSULE (FP) PO SCH (22:08)
[2021-09-06] MEDS: CLINDAMYCIN HCL 150 MG CAPSULE (FP) PO SCH ×2 (06:21→15:29)
[2021-09-06] MEDS: traMADol HCL 50 MG TABLET PO PRN (06:25)
[2021-09-06] MEDS: ALBUTEROL SO4 2.5/IPRATROPIUM 0.5 INH SOL 3 ML VIAL.NEB. NEB SCH ×2 (08:15→15:03)
[2021-09-06] MEDS: ENOXAPARIN NA (PORCINE) 40 MG/0.4 ML DISP.SYRIN SQ SCH (11:41)
[2021-09-06] MEDS: ATOVAQUONE 750 MG/5 ML (UNIT-DOSE PACKAGING) PO SCH (11:42)
[2021-09-06] MEDS: BICTEGRAV/EMTRICIT/TENOFOV (BIKTARVY) 50-200-25 MG TABLET PO SCH (11:42)
[2021-09-06] MEDS: BUDESONIDE/FORMETEROL FUMARATE 160/4.5 mcg INHALER IH SCH (11:43)
[2021-09-06] MEDS: ACETAMINOPHEN 325 MG TABLET (FP) PO PRN (11:45)
== END 2021-09-06 16:35 | DRG 894 ==
LOC: JER 12:44 → UNDOADMOB 17:30 → INTOOBSV 17:30 → JERBED 17:30 → J5S 09-03 21:31 → OBSVTOIN 09-06 08:54
PROVIDERS: ADMIT Internal Medicine; ATTEND Nurse Practitioner Acute Care
DX: B20 Human immunodeficiency virus [HIV] disease (principal); E43 Unspecified severe protein-calorie malnutrition; R64 Cachexia; J44.9 Chronic obstructive pulmonary disease, unspecified; R62.7 Adult failure to thrive; Z59.00 Homelessness unspecified; Z68.1 Body mass index [BMI] 19.9 or less, adult; R91.1 Solitary pulmonary nodule; Z91.19 Patient's noncompliance with other medical treatment and regimen
CPT/HCPCS: 0241U-QW; 36415; 71045-TC-FY; 71250-TC; 80053; 81003; 83735; 85025; 86359; 86360; 86780; 87040; 87086; 94640; 97116-GP; 97162-GP; 99285-25; G0378

== ENCOUNTER 2021-10-06 04:40 | Inpatient (IN) | payer OTHER ==
[2021-10-06 07:04] LABS: BASO % 0.6 % (0-2.0); EOS % 9.2 % (0-4.5); HEMOGLOBIN 13.6 GM/dL (11.7-16.9); LYMPH % 18.9 % (8-40); MCH 28.3 pg (25.7-33.7); MCHC 33.3 g/dl (32.0-35.9); MEAN PLT VOLUME 6.7 fl (7.5-11.1); MONO % 8.1 % (3.8-10.2); NEUT % 63.2 % (42.8-82.8); PLATELET COUNT 478 10^3/uL (134-434); RBC 4.83 M/mm3 (4.00-5.60); RDW 20.4 % (11.9-15.9); WHITE BLOOD COUNT 5.6 K/mm3 (4.0-10.0)
[2021-10-06 07:20] LABS: BLOOD UREA NITROGEN 24.6 mg/dL (7-18); CALCIUM 9.5 mg/dL (8.5-10.1)
[2021-10-06 07:21] LABS: ALBUMIN 3.8 g/dl (3.4-5.0); MAGNESIUM 2.5 mg/dL (1.8-2.4)
[2021-10-06 07:24] LABS: PHOSPHOROUS 4.2 mg/dL (2.5-4.9)
[2021-10-06 07:25] LABS: BILIRUBIN,TOTAL 0.3 mg/dL (0.2-1); TOT PROT 8.4 g/dl (6.4-8.2)
[2021-10-06] MEDS ORDERED: ACETAMINOPHEN 325 MG TABLET (FP) PO ONE (09:01)
[2021-10-06] MEDS ORDERED: ACETAMINOPHEN 325 MG TABLET (FP) ONE (09:04)
[2021-10-06] MEDS ORDERED: KETOROLAC TROMETHAMINE 15 MG/ML VIAL IM ONE (10:04)
[2021-10-06] MEDS ORDERED: KETOROLAC TROMETHAMINE 15 MG/ML VIAL ONE (10:10)
[2021-10-06] MEDS ORDERED: SODIUM CHLORIDE 1,000 ML IV STA (11:53)
[2021-10-06] MEDS ORDERED: ACETAMINOPHEN 1000 MG/100 ML BAG IVPB PRN (14:01)
[2021-10-06] MEDS: SODIUM CHLORIDE 1,000 ML IV SCH ×3 (14:45→23:44)
[2021-10-06] MEDS ORDERED: ACETAMINOPHEN INJECTION 100 ML IVPB ONE (17:13)
[2021-10-07] MEDS: SODIUM CHLORIDE 1,000 ML IV SCH ×4 (04:54→19:39)
[2021-10-07] MEDS ORDERED: KETOROLAC TROMETHAMINE 15 MG/ML VIAL IVPUSH ONE (05:14)
[2021-10-07] MEDS: IBUPROFEN 800 MG/8 ML IJ IVPB PRN (09:26)
[2021-10-07] MEDS ORDERED: diphenhydrAMINE HCL 25 MG CAPSULE (FP) PO ONE (17:52)
[2021-10-08] MEDS: SODIUM CHLORIDE 1,000 ML IV SCH ×3 (01:40→23:42)
[2021-10-08] MEDS: ATOVAQUONE 750 MG/5 ML (UNIT-DOSE PACKAGING) PO SCH (08:55)
[2021-10-08] MEDS: BICTEGRAV/EMTRICIT/TENOFOV (BIKTARVY) 50-200-25 MG TABLET PO SCH (09:00)
[2021-10-08 09:31] LABS: OPIATES, URI NEGATIVE (NEGATIVE); PHENCYCLIDINE,URINE NEGATIVE (NEGATIVE); URINE AMPHETAMINES NEGATIVE (NEGATIVE)
[2021-10-08 09:33] LABS: COCAINE, UR NEGATIVE (NEGATIVE); METHADONE, UR NEGATIVE (NEGATIVE); URINE BARBITURATES NEGATIVE (NEGATIVE); URINE BENZODIAZEPINES NEGATIVE (NEGATIVE)
[2021-10-08 10:12] LABS: BASO % 0.9 % (0-2.0); EOS % 8.7 % (0-4.5); HEMOGLOBIN 12.6 GM/dL (11.7-16.9); MCH 28.2 pg (25.7-33.7); MCHC 33.2 g/dl (32.0-35.9); MEAN CELL VOLUME 85.1 fl (80-96); MONO % 9.5 % (3.8-10.2); NEUT % 66.9 % (42.8-82.8); PLATELET COUNT 393 10^3/uL (134-434); RBC 4.47 M/mm3 (4.00-5.60); RDW 19.9 % (11.9-15.9); WHITE BLOOD COUNT 4.9 K/mm3 (4.0-10.0)
[2021-10-08 10:30] LABS: CALCIUM 8.6 mg/dL (8.5-10.1)
[2021-10-08 10:31] LABS: BLOOD UREA NITROGEN 8.3 mg/dL (7-18); MAGNESIUM 2.1 mg/dL (1.8-2.4)
[2021-10-08 10:34] LABS: CREATININE 0.7 mg/dL (0.55-1.3); PHOSPHOROUS 2.8 mg/dL (2.5-4.9)
[2021-10-08 10:35] LABS: BILIRUBIN,TOTAL 0.3 mg/dL (0.2-1); TOT PROT 6.5 g/dl (6.4-8.2)
[2021-10-08 10:38] LABS: ALBUMIN 2.6 g/dl (3.4-5.0)
[2021-10-08] MEDS: IBUPROFEN 800 MG/8 ML IJ IVPB PRN (13:11)
[2021-10-08] MEDS ORDERED: CYCLOBENZAPRINE HCL 10 MG TABLET (FP) PO ONE (14:45)
[2021-10-08 15:06] VITALS: BMI 16.2
[2021-10-09 09:01] LABS: BASO % 1.2 % (0-2.0); EOS % 9.3 % (0-4.5); HEMATOCRIT 40.5 % (35.4-49); HEMOGLOBIN 13.4 GM/dL (11.7-16.9); LYMPH % 15.8 % (8-40); MCH 27.9 pg (25.7-33.7); MCHC 33.1 g/dl (32.0-35.9); MEAN CELL VOLUME 84.4 fl (80-96); MEAN PLT VOLUME 6.7 fl (7.5-11.1); MONO % 10.8 % (3.8-10.2); NEUT % 62.9 % (42.8-82.8); PLATELET COUNT 378 10^3/uL (134-434); WHITE BLOOD COUNT 4.5 K/mm3 (4.0-10.0)
[2021-10-09] MEDS: MULTIVITAMINS (DAILY MVI) TABLET (FP) PO SCH (09:14)
[2021-10-09] MEDS: BICTEGRAV/EMTRICIT/TENOFOV (BIKTARVY) 50-200-25 MG TABLET PO SCH (09:14)
[2021-10-09] MEDS: ATOVAQUONE 750 MG/5 ML (UNIT-DOSE PACKAGING) PO SCH (09:14)
[2021-10-09] MEDS ORDERED: ACETAMINOPHEN 325 MG TABLET (FP) PO PRN (10:13)
[2021-10-09 10:33] LABS: BLOOD UREA NITROGEN 13.6 mg/dL (7-18); CALCIUM 9.1 mg/dL (8.5-10.1); MAGNESIUM 2.3 mg/dL (1.8-2.4)
[2021-10-09 10:36] LABS: CREATININE 0.8 mg/dL (0.55-1.3); PHOSPHOROUS 3.5 mg/dL (2.5-4.9)
[2021-10-09] MEDS: ACETAMINOPHEN 325 MG TABLET (FP) PO PRN (14:42)
[2021-10-09] MEDS ORDERED: KETOROLAC TROMETHAMINE 15 MG/ML VIAL IVPUSH ONE ×2 (18:27→21:17)
[2021-10-09] MEDS: HEPARIN NA (PORCINE) 5,000 UNITS/ML 1ML VIAL SQ SCH (22:01)
[2021-10-10] MEDS ORDERED: KETOROLAC TROMETHAMINE 30 MG/1 ML VIAL IM ONE (05:26)
[2021-10-10] MEDS: HEPARIN NA (PORCINE) 5,000 UNITS/ML 1ML VIAL SQ SCH ×3 (06:09→21:08)
[2021-10-10] MEDS: SODIUM CHLORIDE 1,000 ML IV SCH (07:40)
[2021-10-10 08:25] LABS: HEMATOCRIT 40.9 % (35.4-49); HEMOGLOBIN 13.6 GM/dL (11.7-16.9); MCH 28.1 pg (25.7-33.7); MCHC 33.3 g/dl (32.0-35.9); MEAN CELL VOLUME 84.2 fl (80-96); MEAN PLT VOLUME 6.6 fl (7.5-11.1); PLATELET COUNT 368 10^3/uL (134-434); RBC 4.85 M/mm3 (4.00-5.60); RDW 19.9 % (11.9-15.9); WHITE BLOOD COUNT 4.4 K/mm3 (4.0-10.0)
[2021-10-10 08:46] LABS: CALCIUM 8.9 mg/dL (8.5-10.1)
[2021-10-10 08:47] LABS: BLOOD UREA NITROGEN 23.9 mg/dL (7-18); MAGNESIUM 2.3 mg/dL (1.8-2.4)
[2021-10-10 08:52] LABS: CREATININE 0.8 mg/dL (0.55-1.3)
[2021-10-10] MEDS: ATOVAQUONE 750 MG/5 ML (UNIT-DOSE PACKAGING) PO SCH (09:36)
[2021-10-10] MEDS: MULTIVITAMINS (DAILY MVI) TABLET (FP) PO SCH (09:39)
[2021-10-10] MEDS: BICTEGRAV/EMTRICIT/TENOFOV (BIKTARVY) 50-200-25 MG TABLET PO SCH (09:39)
[2021-10-10] MEDS ORDERED: KETOROLAC TROMETHAMINE 15 MG/ML VIAL IM ONE (12:45)
[2021-10-10] MEDS: BACITRACIN 15 GM TUBE TOPICAL OINTMENT TP SCH (13:21)
[2021-10-10] MEDS: ACETAMINOPHEN 325 MG TABLET (FP) PO PRN (16:50)
[2021-10-10] MEDS: KETOROLAC TROMETHAMINE 15 MG/ML VIAL IVPUSH ONE ×2 (20:44→21:34)
[2021-10-11] MEDS: HEPARIN NA (PORCINE) 5,000 UNITS/ML 1ML VIAL SQ SCH ×3 (05:31→21:25)
[2021-10-11] MEDS: SODIUM CHLORIDE 1,000 ML IV SCH (08:36)
[2021-10-11] MEDS: KETOROLAC TROMETHAMINE 15 MG/ML VIAL IM PRN ×3 (08:36→18:47)
[2021-10-11] MEDS: ATOVAQUONE 750 MG/5 ML (UNIT-DOSE PACKAGING) PO SCH (08:42)
[2021-10-11] MEDS: MULTIVITAMINS (DAILY MVI) TABLET (FP) PO SCH (11:06)
[2021-10-11] MEDS: BICTEGRAV/EMTRICIT/TENOFOV (BIKTARVY) 50-200-25 MG TABLET PO SCH (11:06)
[2021-10-11] MEDS: BACITRACIN 15 GM TUBE TOPICAL OINTMENT TP SCH (11:06)
[2021-10-11] MEDS: ACETAMINOPHEN 325 MG TABLET (FP) PO PRN ×2 (11:07→21:25)
[2021-10-12] MEDS: KETOROLAC TROMETHAMINE 15 MG/ML VIAL IM PRN ×4 (00:04→17:40)
[2021-10-12] MEDS: HEPARIN NA (PORCINE) 5,000 UNITS/ML 1ML VIAL SQ SCH ×4 (06:23→22:21)
[2021-10-12 08:58] LABS: HEMATOCRIT 42.3 % (35.4-49); HEMOGLOBIN 13.9 GM/dL (11.7-16.9); MCHC 32.8 g/dl (32.0-35.9); MEAN CELL VOLUME 85.2 fl (80-96); MEAN PLT VOLUME 6.8 fl (7.5-11.1); PLATELET COUNT 415 10^3/uL (134-434); RBC 4.96 M/mm3 (4.00-5.60); RDW 19.9 % (11.9-15.9); WHITE BLOOD COUNT 3.5 K/mm3 (4.0-10.0)
[2021-10-12 09:10] LABS: CALCIUM 9.4 mg/dL (8.5-10.1)
[2021-10-12 09:11] LABS: BLOOD UREA NITROGEN 21.7 mg/dL (7-18); MAGNESIUM 2.4 mg/dL (1.8-2.4)
[2021-10-12 09:14] LABS: CREATININE 0.9 mg/dL (0.55-1.3); PHOSPHOROUS 4.3 mg/dL (2.5-4.9)
[2021-10-12] MEDS: SODIUM CHLORIDE 1,000 ML IV SCH (09:18)
[2021-10-12] MEDS: BICTEGRAV/EMTRICIT/TENOFOV (BIKTARVY) 50-200-25 MG TABLET PO SCH (09:19)
[2021-10-12] MEDS: MULTIVITAMINS (DAILY MVI) TABLET (FP) PO SCH (09:19)
[2021-10-12] MEDS: ATOVAQUONE 750 MG/5 ML (UNIT-DOSE PACKAGING) PO SCH (09:20)
[2021-10-12] MEDS: BACITRACIN 15 GM TUBE TOPICAL OINTMENT TP SCH (09:20)
[2021-10-13] MEDS: KETOROLAC TROMETHAMINE 15 MG/ML VIAL IM PRN ×3 (00:56→13:30)
[2021-10-13] MEDS: HEPARIN NA (PORCINE) 5,000 UNITS/ML 1ML VIAL SQ SCH ×3 (05:22→21:16)
[2021-10-13] MEDS: ATOVAQUONE 750 MG/5 ML (UNIT-DOSE PACKAGING) PO SCH (08:20)
[2021-10-13] MEDS: BICTEGRAV/EMTRICIT/TENOFOV (BIKTARVY) 50-200-25 MG TABLET PO SCH (09:09)
[2021-10-13] MEDS: MULTIVITAMINS (DAILY MVI) TABLET (FP) PO SCH (09:09)
[2021-10-13] MEDS: BACITRACIN 15 GM TUBE TOPICAL OINTMENT TP SCH (09:09)
[2021-10-13] MEDS: ACETAMINOPHEN 325 MG TABLET (FP) PO PRN (17:26)
[2021-10-13] MEDS: LIDOCAINE PATCH REMOVAL MC SCH (21:17)
[2021-10-13] MEDS ORDERED: traZODone HCL 50 MG TABLET (FP) PO ONE (22:00)
[2021-10-14] MEDS: HEPARIN NA (PORCINE) 5,000 UNITS/ML 1ML VIAL SQ SCH ×3 (06:14→21:16)
[2021-10-14] MEDS: ATOVAQUONE 750 MG/5 ML (UNIT-DOSE PACKAGING) PO SCH (09:11)
[2021-10-14] MEDS: BACITRACIN 15 GM TUBE TOPICAL OINTMENT TP SCH (09:33)
[2021-10-14] MEDS: BICTEGRAV/EMTRICIT/TENOFOV (BIKTARVY) 50-200-25 MG TABLET PO SCH (09:33)
[2021-10-14] MEDS: LIDOCAINE 5% TOPICAL PATCH TP SCH (09:34)
[2021-10-14] MEDS: ACETAMINOPHEN 325 MG TABLET (FP) PO PRN ×2 (09:34→15:37)
[2021-10-14] MEDS: MULTIVITAMINS (DAILY MVI) TABLET (FP) PO SCH (09:34)
[2021-10-14 09:46] LABS: BASO % 0.8 % (0-2.0); HEMATOCRIT 38.4 % (35.4-49); HEMOGLOBIN 12.5 GM/dL (11.7-16.9); LYMPH % 19.6 % (8-40); MCHC 32.5 g/dl (32.0-35.9); MEAN CELL VOLUME 86.1 fl (80-96); MEAN PLT VOLUME 6.7 fl (7.5-11.1); MONO % 9.3 % (3.8-10.2); NEUT % 60.3 % (42.8-82.8); PLATELET COUNT 339 10^3/uL (134-434); RBC 4.45 M/mm3 (4.00-5.60); RDW 19.9 % (11.9-15.9); WHITE BLOOD COUNT 4.3 K/mm3 (4.0-10.0)
[2021-10-14 10:06] LABS: CALCIUM 9.1 mg/dL (8.5-10.1)
[2021-10-14 10:07] LABS: BLOOD UREA NITROGEN 25.2 mg/dL (7-18); MAGNESIUM 2.2 mg/dL (1.8-2.4)
[2021-10-14 10:09] LABS: PHOSPHOROUS 3.9 mg/dL (2.5-4.9)
[2021-10-14 10:11] LABS: BILIRUBIN,TOTAL 0.2 mg/dL (0.2-1); TOT PROT 7.3 g/dl (6.4-8.2)
[2021-10-14 10:13] LABS: ALBUMIN 3.3 g/dl (3.4-5.0)
[2021-10-14] MEDS: LIDOCAINE PATCH REMOVAL MC SCH (22:16)
[2021-10-15] MEDS: HEPARIN NA (PORCINE) 5,000 UNITS/ML 1ML VIAL SQ SCH ×3 (08:07→22:02)
[2021-10-15 08:35] LABS: BASO % 0.7 % (0-2.0); HEMATOCRIT 39.4 % (35.4-49); HEMOGLOBIN 12.6 GM/dL (11.7-16.9); LYMPH % 20.5 % (8-40); MCH 27.4 pg (25.7-33.7); MCHC 32.1 g/dl (32.0-35.9); MEAN CELL VOLUME 85.4 fl (80-96); MEAN PLT VOLUME 6.8 fl (7.5-11.1); MONO % 13.4 % (3.8-10.2); NEUT % 56.4 % (42.8-82.8); PLATELET COUNT 333 10^3/uL (134-434); RBC 4.61 M/mm3 (4.00-5.60); RDW 19.8 % (11.9-15.9); WHITE BLOOD COUNT 4.8 K/mm3 (4.0-10.0)
[2021-10-15 09:03] LABS: BLOOD UREA NITROGEN 20.5 mg/dL (7-18); CALCIUM 8.9 mg/dL (8.5-10.1)
[2021-10-15 09:04] LABS: ALBUMIN 3.3 g/dl (3.4-5.0); MAGNESIUM 2.4 mg/dL (1.8-2.4)
[2021-10-15 09:06] LABS: CREATININE 0.9 mg/dL (0.55-1.3); PHOSPHOROUS 3.9 mg/dL (2.5-4.9)
[2021-10-15] MEDS: LIDOCAINE 5% TOPICAL PATCH TP SCH (09:07)
[2021-10-15] MEDS: MULTIVITAMINS (DAILY MVI) TABLET (FP) PO SCH (09:07)
[2021-10-15 09:08] LABS: BILIRUBIN,TOTAL 0.2 mg/dL (0.2-1); TOT PROT 7.4 g/dl (6.4-8.2)
[2021-10-15] MEDS: BICTEGRAV/EMTRICIT/TENOFOV (BIKTARVY) 50-200-25 MG TABLET PO SCH (09:08)
[2021-10-15] MEDS: ATOVAQUONE 750 MG/5 ML (UNIT-DOSE PACKAGING) PO SCH (09:34)
[2021-10-15] MEDS: BACITRACIN 15 GM TUBE TOPICAL OINTMENT TP SCH (09:34)
[2021-10-15] MEDS: KETOROLAC TROMETHAMINE 15 MG/ML VIAL IVPUSH PRN ×2 (09:35→22:00)
[2021-10-15] MEDS: ACETAMINOPHEN 325 MG TABLET (FP) PO PRN (18:22)
[2021-10-15] MEDS ORDERED: MELATONIN 5 MG TABLETS PO PRN (22:00)
[2021-10-15] MEDS: LIDOCAINE PATCH REMOVAL MC SCH (22:06)
[2021-10-16] MEDS: HEPARIN NA (PORCINE) 5,000 UNITS/ML 1ML VIAL SQ SCH ×2 (05:47→13:20)
[2021-10-16 07:22] VITALS: TEMP 97.8
[2021-10-16] MEDS: ATOVAQUONE 750 MG/5 ML (UNIT-DOSE PACKAGING) PO SCH (09:12)
[2021-10-16] MEDS: BACITRACIN 15 GM TUBE TOPICAL OINTMENT TP SCH (09:12)
[2021-10-16] MEDS: BICTEGRAV/EMTRICIT/TENOFOV (BIKTARVY) 50-200-25 MG TABLET PO SCH (09:13)
[2021-10-16] MEDS: MULTIVITAMINS (DAILY MVI) TABLET (FP) PO SCH (09:13)
[2021-10-16] MEDS: LIDOCAINE 5% TOPICAL PATCH TP SCH (09:13)
[2021-10-16 10:22] VITALS: BP 90/55; PULSE 74; RESP 17
== END 2021-10-16 16:01 | disposition home or self-care (01) | DRG 894 ==
LOC: JER 04:40 → JERBED 12:02 → J7W 22:17
PROVIDERS: ADMIT Internal Medicine; ATTEND Internal Medicine
DX: B20 Human immunodeficiency virus [HIV] disease (principal); R64 Cachexia; Z68.1 Body mass index [BMI] 19.9 or less, adult; E43 Unspecified severe protein-calorie malnutrition; E11.9 Type 2 diabetes mellitus without complications; E86.0 Dehydration; F14.10 Cocaine abuse, uncomplicated; J44.9 Chronic obstructive pulmonary disease, unspecified; M54.50 Low back pain, unspecified; R26.2 Difficulty in walking, not elsewhere classified; Z59.00 Homelessness unspecified; R62.7 Adult failure to thrive; M87.88 Other osteonecrosis, other site; I95.9 Hypotension, unspecified
CPT/HCPCS: 0241U-QW; 36415; 71046-TC-FY; 73502-TC-RT-FY; 80048; 80053; 80307; 83735; 84100; 84484; 85025; 85027; 86359; 86360; 87899; 93005; 93010; 94010; 97116-GP; 97161-GP; 99285-25; J1644

== ENCOUNTER 2021-12-29 19:49 | Emergency (ER) | payer OTHER ==
[2021-12-29 20:16] VITALS: BMI 18.6
[2021-12-29] MEDS ORDERED: LACTATED RINGERS SOLUTION 1000 ML INFUS.BAG IV ONE (20:58)
[2021-12-29] MEDS ORDERED: ONDANSETRON 4 MG/2 ML VIAL IVPUSH ONE (21:05)
[2021-12-29] MEDS ORDERED: FAMOTIDINE 20 MG/50 ML IVPB 20 MG/50 ML MG IVPB ONE ×2 (21:05→21:50)
[2021-12-29] MEDS ORDERED: ONDANSETRON 4 MG/2 ML VIAL ONE (21:50)
[2021-12-29 22:13] LABS: BASO % 0.9 % (0-2.0); CALCIUM 8.8 mg/dL (8.5-10.1); EOS % 5.5 % (0-4.5); HEMATOCRIT 39.3 % (35.4-49); HEMOGLOBIN 12.7 GM/dL (11.7-16.9); LYMPH % 17.8 % (8-40); MCH 27.6 pg (25.7-33.7); MCHC 32.2 g/dl (32.0-35.9); MEAN CELL VOLUME 85.6 fl (80-96); MONO % 7.5 % (3.8-10.2); NEUT % 68.3 % (42.8-82.8); PLATELET COUNT 371 10^3/uL (134-434); RBC 4.59 M/mm3 (4.00-5.60); RDW 15.6 % (11.9-15.9); WHITE BLOOD COUNT 6.6 K/mm3 (4.0-10.0)
[2021-12-29 22:14] LABS: ALBUMIN 3.1 g/dl (3.4-5.0); MAGNESIUM 2.1 mg/dL (1.8-2.4)
[2021-12-29 22:17] LABS: CREATININE 0.8 mg/dL (0.55-1.3)
[2021-12-29 22:18] LABS: BILIRUBIN,TOTAL 0.2 mg/dL (0.2-1)
[2021-12-29 22:19] LABS: TOT PROT 7.5 g/dl (6.4-8.2)
[2021-12-29 23:05] LABS: URINE APPEARANCE CLOUDY; URINE BILIRUBIN NEGATIVE (NEGATIVE); URINE COLOR YELLOW; URINE GLUCOSE (UA) NEGATIVE (NEGATIVE); URINE KETONE NEGATIVE (NEGATIVE); URINE LEUK ESTERASE NEGATIVE (NEGATIVE); URINE NITRITE NEGATIVE (NEGATIVE); URINE PROTEIN NEGATIVE (NEGATIVE); URINE UROBILINOGEN 0.2 mg/dL (0.2-1.0)
[2021-12-29 23:15] LABS: OPIATES, URI NEGATIVE (NEGATIVE); PHENCYCLIDINE,URINE NEGATIVE (NEGATIVE); URINE BARBITURATES NEGATIVE (NEGATIVE)
[2021-12-29 23:28] LABS: COCAINE, UR NEGATIVE (NEGATIVE); METHADONE, UR NEGATIVE (NEGATIVE); URINE AMPHETAMINES POSITIVE (NEGATIVE); URINE BENZODIAZEPINES NEGATIVE (NEGATIVE)
[2021-12-30 05:48] VITALS: BP 104/68; PULSE 70; RESP 13; TEMP 98
== END 2021-12-30 07:57 | disposition home or self-care (01) ==
LOC: JER 19:49
PROC: 3E033GC Introduction of Other Therapeutic Substance into Peripheral Vein, Percutaneous Approach (ICD-10-PCS; principal; 2021-12-29)
PROC: 3E033GC Introduction of Other Therapeutic Substance into Peripheral Vein, Percutaneous Approach (ICD-10-PCS; 2021-12-29)
DX: D72.818 Other decreased white blood cell count (principal); J84.9 Interstitial pulmonary disease, unspecified; R11.2 Nausea with vomiting, unspecified
CPT/HCPCS: 0241U-QW; 36415; 71046-TC-FY; 80053; 80307; 81003; 83605; 83690; 83735; 85025; 87040; 87086; 93005; 93010; 99285-25

== ENCOUNTER 2022-01-15 07:13 | Inpatient (IN) | payer OTHER ==
[2022-01-15 07:31] VITALS: BMI 15.3
[2022-01-15] MEDS ORDERED: MAG HYDROX/ALH/SMC/DPHA/LIDO 240 ML MOUTHWASH MM ONE (08:39)
[2022-01-15 09:23] LABS: HEMATOCRIT 38.2 % (35.4-49); HEMOGLOBIN 12.6 GM/dL (11.7-16.9); LYMPH % 20.6 % (8-40); MCH 28.1 pg (25.7-33.7); MCHC 33.1 g/dl (32.0-35.9); MEAN CELL VOLUME 85.1 fl (80-96); MEAN PLT VOLUME 6.9 fl (7.5-11.1); MONO % 7.3 % (3.8-10.2); NEUT % 62.1 % (42.8-82.8); PLATELET COUNT 523 10^3/uL (134-434); RBC 4.49 M/mm3 (4.00-5.60); RDW 16.1 % (11.9-15.9)
[2022-01-15 09:42] LABS: CHLORIDE 105 mmol/L (98-107); SODIUM 138 mmol/L (136-145)
[2022-01-15 09:46] LABS: ALBUMIN 3.4 g/dl (3.4-5.0); BLOOD UREA NITROGEN 29.3 mg/dL (7-18); CALCIUM 8.9 mg/dL (8.5-10.1); GLUCOSE,RANDOM 135 mg/dL (74-106)
[2022-01-15 09:47] LABS: ANION GAP 6 MMOL/L (8-16); CO2 26 mmol/L (21-32); MAGNESIUM 2.3 mg/dL (1.8-2.4)
[2022-01-15 09:48] LABS: SGPT/ALT 19 U/L (13-61)
[2022-01-15 09:49] LABS: CREATININE 0.8 mg/dL (0.55-1.3); SGOT/AST 31 U/L (15-37)
[2022-01-15 09:51] LABS: ALK PHOS 75 U/L (45-117); BILIRUBIN,TOTAL 0.2 mg/dL (0.2-1); TOT PROT 7.7 g/dl (6.4-8.2)
[2022-01-15] MEDS: INSULIN SLIDING SCALE (NOVOLOG) 1 VIAL SQ SCH ×2 (11:30→17:46)
[2022-01-15 11:58] LABS: SYPHILIS W/ RPR CONF NON-REACTIVE (NONREACTIVE)
[2022-01-15 17:03] LABS: URINE APPEARANCE CLEAR; URINE BILIRUBIN NEGATIVE (NEGATIVE); URINE COLOR YELLOW; URINE GLUCOSE (UA) NEGATIVE (NEGATIVE); URINE KETONE NEGATIVE (NEGATIVE); URINE LEUK ESTERASE NEGATIVE (NEGATIVE); URINE NITRITE NEGATIVE (NEGATIVE); URINE PROTEIN NEGATIVE (NEGATIVE); URINE UROBILINOGEN 0.2 mg/dL (0.2-1.0)
[2022-01-16] MEDS: INSULIN SLIDING SCALE (NOVOLOG) 1 VIAL SQ SCH ×3 (06:19→17:49)
[2022-01-16 08:27] LABS: BASO % 0.6 % (0-2.0); EOS % 6.4 % (0-4.5); HEMATOCRIT 38.6 % (35.4-49); HEMOGLOBIN 12.7 GM/dL (11.7-16.9); LYMPH % 16.6 % (8-40); MCH 28.3 pg (25.7-33.7); MEAN CELL VOLUME 85.6 fl (80-96); MEAN PLT VOLUME 6.6 fl (7.5-11.1); MONO % 10.1 % (3.8-10.2); NEUT % 66.3 % (42.8-82.8); PLATELET COUNT 425 10^3/uL (134-434); RBC 4.51 M/mm3 (4.00-5.60); WHITE BLOOD COUNT 5.4 K/mm3 (4.0-10.0)
[2022-01-16 08:43] LABS: ALBUMIN 3.1 g/dl (3.4-5.0); BLOOD UREA NITROGEN 22.3 mg/dL (7-18); CALCIUM 8.8 mg/dL (8.5-10.1); MAGNESIUM 2.2 mg/dL (1.8-2.4)
[2022-01-16 08:45] LABS: PHOSPHOROUS 3.8 mg/dL (2.5-4.9)
[2022-01-16 08:46] LABS: CREATININE 0.7 mg/dL (0.55-1.3)
[2022-01-16 08:47] LABS: BILIRUBIN,TOTAL 0.3 mg/dL (0.2-1); TOT PROT 7.1 g/dl (6.4-8.2)
[2022-01-16] MEDS ORDERED: ALBUTEROL SO4 2.5/IPRATROPIUM 0.5 INH SOL 3 ML VIAL.NEB. NEB PRN (09:05)
[2022-01-16] MEDS ORDERED: ALBUTEROL SO4 HFA INHALER IH SCH (10:00)
[2022-01-16] MEDS: FLU VACC QS2022-23(6MOS UP)/PF 60 MCG/0.5 ML SYRINGE IM ONE ×2 (10:02→11:10)
[2022-01-16] MEDS: ENOXAPARIN NA (PORCINE) 40 MG/0.4 ML DISP.SYRIN SQ SCH (11:02)
[2022-01-16] MEDS: TIOTROPIUM BROMIDE 2.5 MCG (SPIRIVA) RESPIMAT INHALER IH SCH (11:45)
[2022-01-16] MEDS: ASPIRIN COATED 81 MG TABLET.EC PO SCH (14:00)
[2022-01-17 03:29] VITALS: TEMP 98
[2022-01-17 06:09] VITALS: BP 90/41; PULSE 64; RESP 20
[2022-01-17] MEDS: INSULIN SLIDING SCALE (NOVOLOG) 1 VIAL SQ SCH (06:35)
[2022-01-17 08:16] LABS: BASO % 0.6 % (0-2.0); EOS % 7.5 % (0-4.5); HEMATOCRIT 39.3 % (35.4-49); HEMOGLOBIN 13.4 GM/dL (11.7-16.9); MCH 28.8 pg (25.7-33.7); MEAN CELL VOLUME 84.8 fl (80-96); MEAN PLT VOLUME 6.8 fl (7.5-11.1); NEUT % 62.9 % (42.8-82.8); PLATELET COUNT 391 10^3/uL (134-434); RBC 4.64 M/mm3 (4.00-5.60); RDW 16.3 % (11.9-15.9); WHITE BLOOD COUNT 4.1 K/mm3 (4.0-10.0)
[2022-01-17 08:27] LABS: CALCIUM 8.6 mg/dL (8.5-10.1)
[2022-01-17 08:28] LABS: MAGNESIUM 2.2 mg/dL (1.8-2.4)
[2022-01-17 08:30] LABS: ALBUMIN 3.2 g/dl (3.4-5.0)
[2022-01-17] MEDS: ATOVAQUONE 750 MG/5 ML (UNIT-DOSE PACKAGING) PO SCH ×2 (08:30)
[2022-01-17 08:32] LABS: CREATININE 0.8 mg/dL (0.55-1.3)
[2022-01-17 08:33] LABS: TOT PROT 7.5 g/dl (6.4-8.2)
[2022-01-17 08:34] LABS: BILIRUBIN,TOTAL 0.2 mg/dL (0.2-1)
[2022-01-17] MEDS: ENOXAPARIN NA (PORCINE) 40 MG/0.4 ML DISP.SYRIN SQ SCH ×2 (10:02→10:14)
[2022-01-17] MEDS: ASPIRIN COATED 81 MG TABLET.EC PO SCH ×2 (10:03→10:14)
[2022-01-17] MEDS: TIOTROPIUM BROMIDE 2.5 MCG (SPIRIVA) RESPIMAT INHALER IH SCH ×2 (10:04→10:14)
== END 2022-01-17 11:27 | disposition left against medical advice (07) | DRG 203 ==
LOC: JER 07:13 → JERBED 10:17 → OBSVTOIN 10:35 → J4W 19:00
PROVIDERS: ADMIT Internal Medicine; ATTEND Nurse Practitioner Family
DX: R07.89 Other chest pain (principal); B20 Human immunodeficiency virus [HIV] disease; Z91.14 Patient's other noncompliance with medication regimen; M87.852 Other osteonecrosis, left femur; M87.851 Other osteonecrosis, right femur; J44.9 Chronic obstructive pulmonary disease, unspecified; E11.9 Type 2 diabetes mellitus without complications; F14.20 Cocaine dependence, uncomplicated; F10.20 Alcohol dependence, uncomplicated; R64 Cachexia; F11.20 Opioid dependence, uncomplicated; Z59.00 Homelessness unspecified; Z68.1 Body mass index [BMI] 19.9 or less, adult; Z53.29 Procedure and treatment not carried out because of patient's decision for other reasons
CPT/HCPCS: 0241U-QW; 36415; 71046-TC-FY; 80053; 80061; 81003; 82272; 82962; 83605; 83735; 84100; 84484; 85025; 86359; 86360; 86705; 86707; 86709; 86780; 86803; 87040; 87086; 87186; 87340; 87350; 87491; 87517; 87522; 87591; 93005; 93010; 97116-GP; 97161-GP; 99285-25; G0378; Q2036

== ENCOUNTER 2022-07-20 01:29 | Inpatient (IN) | payer OTHER ==
[2022-07-20 02:54] LABS: VENOUS BASE EXCESS -1.5 mmol/L (-2-2); VENOUS O2 SATURATION 57.1 % (70-80); VENOUS PCO2 52.9 mmHg (38-52); VENOUS PH 7.308 (7.310-7.410)
[2022-07-20 02:55] LABS: BASO % 0.8 % (0-2.0); EOS % 6.3 % (0-4.5); HEMATOCRIT 42.2 % (35.4-49); HEMOGLOBIN 14.3 GM/dL (11.7-16.9); LYMPH % 14.2 % (8-40); MCH 28.7 pg (25.7-33.7); MCHC 33.9 g/dl (32.0-35.9); MEAN CELL VOLUME 84.8 fl (80-96); MEAN PLT VOLUME 6.8 fl (7.5-11.1); MONO % 9.5 % (3.8-10.2); NEUT % 69.2 % (42.8-82.8); PLATELET COUNT 380 10^3/uL (134-434); RBC 4.98 M/mm3 (4.00-5.60); WHITE BLOOD COUNT 3.7 K/mm3 (4.0-10.0)
[2022-07-20 03:03] LABS: INR 0.94 (0.83-1.09); PROTHROMBIN TIME (PATIENT) 10.9 SEC (9.7-13.0)
[2022-07-20 03:06] LABS: ACTIVATED PTT 33.5 SECONDS (25.2-36.5)
[2022-07-20 03:14] LABS: POTASSIUM 3.7 mmol/L (3.5-5.1)
[2022-07-20 03:15] LABS: CALCIUM 9.2 mg/dL (8.5-10.1)
[2022-07-20 03:16] LABS: ALBUMIN 3.6 g/dl (3.4-5.0); BLOOD UREA NITROGEN 34.2 mg/dL (7-18)
[2022-07-20 03:21] LABS: BILIRUBIN,TOTAL 0.3 mg/dL (0.2-1); TOT PROT 8.2 g/dl (6.4-8.2)
[2022-07-20] MEDS ORDERED: SODIUM CHLORIDE 0.9% 500 ML INFUS.BAG IV ONE ×2 (04:51→09:00)
[2022-07-20 06:02] LABS: PH,URINE 6.5 (5.0-8.0); URINE APPEARANCE CLEAR; URINE BILIRUBIN NEGATIVE (NEGATIVE); URINE COLOR YELLOW; URINE GLUCOSE (UA) NEGATIVE (NEGATIVE); URINE KETONE NEGATIVE (NEGATIVE); URINE LEUK ESTERASE NEGATIVE (NEGATIVE); URINE NITRITE NEGATIVE (NEGATIVE); URINE PROTEIN TRACE (NEGATIVE)
[2022-07-20 06:12] LABS: COCAINE, UR NEGATIVE (NEGATIVE); OPIATES, URI NEGATIVE (NEGATIVE); PHENCYCLIDINE,URINE NEGATIVE (NEGATIVE); URINE BARBITURATES NEGATIVE (NEGATIVE)
[2022-07-20 06:13] LABS: METHADONE, UR NEGATIVE (NEGATIVE); URINE AMPHETAMINES POSITIVE (NEGATIVE); URINE BENZODIAZEPINES NEGATIVE (NEGATIVE)
[2022-07-20] MEDS ORDERED: NYSTATIN 500,000 UNITS/5 ML SUSPENSION PO ONE (07:41)
[2022-07-20] MEDS ORDERED: FLUCONAZOLE 400 MG/NS 200 ML IVPB ONE (07:41)
[2022-07-20] MEDS ORDERED: MIDAZOLAM HCL 2 MG/2 ML SINGLE DOSE VIAL IVPUSH ONE ×2 (07:42→08:50)
[2022-07-20] MEDS ORDERED: MIDAZOLAM HCL 2 MG/2 ML SINGLE DOSE VIAL ONE ×2 (07:45→08:30)
[2022-07-20] MEDS ORDERED: LIDOCAINE HCL 2% (20ML MULTI-DOSE VIAL) ONE (08:47)
[2022-07-20 09:43] LABS: CSF APPEARANCE CLEAR (CLEAR); CSF COLOR COLORLESS (COLORLESS); CSF WBC 1 mm3 (0-5)
[2022-07-20] MEDS: DEXTROSE 5%-LACTATED RINGERS 1,000 ML IV SCH ×2 (11:26→18:04)
[2022-07-21] MEDS: DEXTROSE 5%-LACTATED RINGERS 1,000 ML IV SCH ×2 (05:01→18:28)
[2022-07-21] MEDS ORDERED: FLUCONAZOLE 100 MG/NS 50 ML IVPB SCH (10:00)
[2022-07-21] MEDS: ATOVAQUONE 750 MG/5 ML (UNIT-DOSE PACKAGING) PO SCH ×2 (10:00→11:01)
[2022-07-21] MEDS: CEFTRIAXONE 1 GM in DEXTROSE 5%-WATER - 50 ML IVPB SCH (11:01)
[2022-07-21] MEDS: FLUCONAZOLE 100 MG TABLET (UD) PO SCH (11:02)
[2022-07-21] MEDS: ENOXAPARIN NA (PORCINE) 40 MG/0.4 ML DISP.SYRIN SQ SCH (11:02)
[2022-07-21] MEDS: AZITHROMYCIN IVPB 500 MG/250 ML BAG IVPB SCH (11:03)
[2022-07-21] MEDS ORDERED: ACETAMINOPHEN 500 MG TABLET (FP) PO PRN (15:17)
[2022-07-22] MEDS: ENOXAPARIN NA (PORCINE) 40 MG/0.4 ML DISP.SYRIN SQ SCH (09:43)
[2022-07-22] MEDS: FLUCONAZOLE 100 MG TABLET (UD) PO SCH (09:44)
[2022-07-22] MEDS: CEFTRIAXONE 1 GM in DEXTROSE 5%-WATER - 50 ML IVPB SCH (09:44)
[2022-07-22] MEDS: ATOVAQUONE 750 MG/5 ML (UNIT-DOSE PACKAGING) PO SCH (09:46)
[2022-07-22 10:24] LABS: HEMATOCRIT 40.6 % (35.4-49); HEMOGLOBIN 13.8 GM/dL (11.7-16.9); MCH 28.5 pg (25.7-33.7); MCHC 33.9 g/dl (32.0-35.9); MEAN CELL VOLUME 84.1 fl (80-96); MEAN PLT VOLUME 6.9 fl (7.5-11.1); PLATELET COUNT 328 10^3/uL (134-434); RBC 4.83 M/mm3 (4.00-5.60); RDW 18.4 % (11.9-15.9); WHITE BLOOD COUNT 3.6 K/mm3 (4.0-10.0)
[2022-07-22] MEDS: AZITHROMYCIN IVPB 500 MG/250 ML BAG IVPB SCH (11:58)
[2022-07-22 14:58] VITALS: BMI 18.4
[2022-07-23 08:20] LABS: POTASSIUM 4.7 mmol/L (3.5-5.1)
[2022-07-23 08:21] LABS: BLOOD UREA NITROGEN 22.1 mg/dL (7-18); CALCIUM 8.6 mg/dL (8.5-10.1)
[2022-07-23 08:22] LABS: HEMOGLOBIN 14.3 GM/dL (11.7-16.9); MCH 28.7 pg (25.7-33.7); MEAN CELL VOLUME 84.6 fl (80-96); MEAN PLT VOLUME 6.5 fl (7.5-11.1); PLATELET COUNT 324 10^3/uL (134-434); RBC 4.97 M/mm3 (4.00-5.60); RDW 17.9 % (11.9-15.9); WHITE BLOOD COUNT 3.4 K/mm3 (4.0-10.0)
[2022-07-23 08:23] LABS: ALBUMIN 3.1 g/dl (3.4-5.0); MAGNESIUM 2.3 mg/dL (1.8-2.4)
[2022-07-23 08:25] LABS: CREATININE 0.9 mg/dL (0.55-1.3); PHOSPHOROUS 3.3 mg/dL (2.5-4.9)
[2022-07-23 08:27] LABS: BILIRUBIN,TOTAL 0.2 mg/dL (0.2-1); TOT PROT 7.6 g/dl (6.4-8.2)
[2022-07-23] MEDS: ATOVAQUONE 750 MG/5 ML (UNIT-DOSE PACKAGING) PO SCH ×2 (08:29→08:31)
[2022-07-23] MEDS ORDERED: AZITHROMYCIN 250 MG TABLET PO SCH (10:00)
[2022-07-23] MEDS: CEFTRIAXONE 1 GM in DEXTROSE 5%-WATER - 50 ML IVPB SCH (10:16)
[2022-07-23] MEDS: FLUCONAZOLE 100 MG TABLET (UD) PO SCH (10:16)
[2022-07-23] MEDS: ENOXAPARIN NA (PORCINE) 40 MG/0.4 ML DISP.SYRIN SQ SCH (10:16)
[2022-07-24 07:08] LABS: HEMATOCRIT 41.3 % (35.4-49); HEMOGLOBIN 14.4 GM/dL (11.7-16.9); MCH 29.6 pg (25.7-33.7); MCHC 34.8 g/dl (32.0-35.9); MEAN PLT VOLUME 7.3 fl (7.5-11.1); PLATELET COUNT 307 10^3/uL (134-434); RBC 4.86 M/mm3 (4.00-5.60); RDW 17.9 % (11.9-15.9); WHITE BLOOD COUNT 3.1 K/mm3 (4.0-10.0)
[2022-07-24 07:26] LABS: POTASSIUM 4.8 mmol/L (3.5-5.1)
[2022-07-24 07:29] LABS: ALBUMIN 3.2 g/dl (3.4-5.0); CALCIUM 8.8 mg/dL (8.5-10.1); MAGNESIUM 2.3 mg/dL (1.8-2.4)
[2022-07-24 07:32] LABS: CREATININE 0.9 mg/dL (0.55-1.3); PHOSPHOROUS 4.1 mg/dL (2.5-4.9)
[2022-07-24 07:33] LABS: BILIRUBIN,TOTAL 0.2 mg/dL (0.2-1); TOT PROT 7.6 g/dl (6.4-8.2)
[2022-07-24] MEDS: ENOXAPARIN NA (PORCINE) 40 MG/0.4 ML DISP.SYRIN SQ SCH (09:02)
[2022-07-24] MEDS: FLUCONAZOLE 100 MG TABLET (UD) PO SCH (09:02)
[2022-07-24] MEDS: ATOVAQUONE 750 MG/5 ML (UNIT-DOSE PACKAGING) PO SCH (11:09)
[2022-07-24 19:14] VITALS: RESP 18
[2022-07-25 06:19] VITALS: TEMP 97.5
[2022-07-25 07:09] LABS: HEMATOCRIT 39.3 % (35.4-49); HEMOGLOBIN 13.6 GM/dL (11.7-16.9); MCH 29.1 pg (25.7-33.7); MCHC 34.6 g/dl (32.0-35.9); MEAN CELL VOLUME 84.1 fl (80-96); MEAN PLT VOLUME 7.3 fl (7.5-11.1); PLATELET COUNT 300 10^3/uL (134-434); RBC 4.67 M/mm3 (4.00-5.60); RDW 18.2 % (11.9-15.9)
[2022-07-25 07:29] LABS: POTASSIUM 4.6 mmol/L (3.5-5.1)
[2022-07-25 07:35] LABS: CALCIUM 8.9 mg/dL (8.5-10.1)
[2022-07-25 07:36] LABS: ALBUMIN 3.2 g/dl (3.4-5.0); BLOOD UREA NITROGEN 22.2 mg/dL (7-18); MAGNESIUM 2.1 mg/dL (1.8-2.4)
[2022-07-25 07:40] LABS: BILIRUBIN,TOTAL 0.4 mg/dL (0.2-1); CREATININE 0.8 mg/dL (0.55-1.3); PHOSPHOROUS 3.9 mg/dL (2.5-4.9)
[2022-07-25 07:41] LABS: TOT PROT 7.4 g/dl (6.4-8.2)
[2022-07-25 07:54] VITALS: BP 101/68; PULSE 71
[2022-07-25] MEDS: ENOXAPARIN NA (PORCINE) 40 MG/0.4 ML DISP.SYRIN SQ SCH (09:34)
[2022-07-25] MEDS: FLUCONAZOLE 100 MG TABLET (UD) PO SCH (09:34)
[2022-07-25] MEDS: ATOVAQUONE 750 MG/5 ML (UNIT-DOSE PACKAGING) PO SCH (09:35)
== END 2022-07-25 13:48 | disposition left against medical advice (07) | DRG 892 ==
LOC: JER 01:29 → JERBED 09:52 → J7W 17:18
PROVIDERS: ADMIT Internal Medicine; ATTEND Internal Medicine
DX: G92.8 Other toxic encephalopathy (principal); B20 Human immunodeficiency virus [HIV] disease; B37.0 Candidal stomatitis; F14.10 Cocaine abuse, uncomplicated; R64 Cachexia; Z68.1 Body mass index [BMI] 19.9 or less, adult; Z59.00 Homelessness unspecified
CPT/HCPCS: 0241U-QW; 36415; 70450-TC; 71045-TC-FY; 71250-TC; 72125-TC; 73502-TC-RT-FY; 80053; 80307; 81003; 82803; 83605; 83615; 83735; 84100; 84484; 85025; 85027; 85610; 85730; 86359; 86360; 86592; 86777; 86850; 86900; 86901; 87040; 87070; 87086; 87102; 87205; 87210; 87529; 87899; 93005; 93010; 97116-GP; 97161-GP; 99285-25

== ENCOUNTER 2022-09-24 11:02 | Emergency (ER) | payer OTHER ==
[2022-09-24 11:21] VITALS: BP 106/79; PULSE 99; RESP 18; TEMP 97.7; BMI 16.9
[2022-09-24] MEDS ORDERED: HYDROCORTISONE 1% TOPICAL CREAM 30 GM TUBE TP ONE (12:44)
[2022-09-24] MEDS ORDERED: LORATADINE 10 MG TABLET PO ONE (12:44)
[2022-09-24] MEDS ORDERED: LORATADINE 10 MG TABLET ONE (13:33)
[2022-09-24 13:36] LABS: BASO % 1.2 % (0-2.0); EOS % 10.1 % (0-4.5); HEMATOCRIT 37.5 % (35.4-49); HEMOGLOBIN 12.3 GM/dL (11.7-16.9); LYMPH % 25.4 % (8-40); MCH 28.5 pg (25.7-33.7); MCHC 32.7 g/dl (32.0-35.9); MEAN CELL VOLUME 87.2 fl (80-96); MEAN PLT VOLUME 7.2 fl (7.5-11.1); MONO % 10.8 % (3.8-10.2); NEUT % 52.5 % (42.8-82.8); PLATELET COUNT 282 10^3/uL (134-434); RBC 4.31 M/mm3 (4.00-5.60); RDW 16.6 % (11.9-15.9)
[2022-09-24] MEDS ORDERED: ACETAMINOPHEN 500 MG TABLET (FP) PO ONE (13:49)
[2022-09-24 13:53] LABS: POTASSIUM 3.9 mmol/L (3.5-5.1)
[2022-09-24 13:58] LABS: CALCIUM 8.8 mg/dL (8.5-10.1)
[2022-09-24 13:59] LABS: ALBUMIN 3.2 g/dl (3.4-5.0); BLOOD UREA NITROGEN 27.5 mg/dL (7-18)
[2022-09-24 14:02] LABS: CREATININE 1.2 mg/dL (0.55-1.3)
[2022-09-24 14:03] LABS: BILIRUBIN,TOTAL 0.3 mg/dL (0.2-1)
[2022-09-24] MEDS ORDERED: ACETAMINOPHEN 500 MG TABLET (FP) ONE (14:21)
[2022-09-24] MEDS ORDERED: LOPERAMIDE HCL 2 MG CAPSULE PO ONE (15:25)
[2022-09-24] MEDS ORDERED: LOPERAMIDE HCL 2 MG CAPSULE ONE (16:20)
== END 2022-09-24 17:17 | disposition home or self-care (01) ==
LOC: JER 11:02
DX: R21 Rash and other nonspecific skin eruption (principal); M25.551 Pain in right hip; L29.9 Pruritus, unspecified
CPT/HCPCS: 36415; 71046-TC-FY; 73521-TC-FY; 76870-TC; 80053; 85025; 86359; 86360; 99285-25

== ENCOUNTER 2022-10-09 01:03 | Inpatient (IN) | payer OTHER ==
[2022-10-09 01:36] VITALS: BMI 16.9
[2022-10-09] MEDS ORDERED: BENZONATATE 200 MG CAPSULE PO PRN (01:59)
[2022-10-09] MEDS ORDERED: METHOCARBAMOL 500 MG TABLET PO PRN (01:59)
[2022-10-09] MEDS ORDERED: BISMUTH SUBSALICYLATE 524 MG/30 ML PO PRN (01:59)
[2022-10-09] MEDS ORDERED: MAGNESIUM HYDROX 2400MG/30ML ORAL SUSPENSION 30 ML CUP PO PRN (01:59)
[2022-10-09] MEDS ORDERED: DICYCLOMINE HCL 10 MG CAPSULE PO PRN (01:59)
[2022-10-09] MEDS ORDERED: ONDANSETRON *ODT* 4 MG TABLET SL PRN (01:59)
[2022-10-09] MEDS ORDERED: LOPERAMIDE HCL 2 MG CAPSULE PO PRN (01:59)
[2022-10-09] MEDS ORDERED: NALOXONE HCL (KLOXXADO) 8 MG SPRAY NS PRN (01:59)
[2022-10-09] MEDS ORDERED: POLYETHYLENE GLYCOL (HEALTHYLAX) 3350 17 GM PACKET PO PRN (01:59)
[2022-10-09] MEDS ORDERED: MAG HYDROX/AL HYDROX/SIMETH 30 ML UNIT-DOSE CUP PO PRN (01:59)
[2022-10-09] MEDS ORDERED: guaiFENesin 600 MG TABLET.ER (FP) PO PRN (01:59)
[2022-10-09] MEDS ORDERED: NALOXONE HCL 0.4 MG/ML VIAL IM PRN (01:59)
[2022-10-09] MEDS ORDERED: BENZOCAINE/MENTHOL (CHLORASEPTIC ) LOZENGE MM PRN (01:59)
[2022-10-09] MEDS ORDERED: IBUPROFEN 400 MG TABLET (FP) PO PRN (01:59)
[2022-10-09] MEDS ORDERED: IBUPROFEN 600 MG TABLET (FP) PO PRN (01:59)
[2022-10-09] MEDS ORDERED: PRENATAL VITAMINS W/ FOLIC ACID TABLET (FP) PO ONE (09:31)
[2022-10-09] MEDS: PRENATAL VITAMINS W/ FOLIC ACID TABLET (FP) PO SCH (09:35)
[2022-10-09 11:28] LABS: HEMOGLOBIN 13.3 GM/dL (11.7-16.9); MCH 28.9 pg (25.7-33.7); MCHC 33.2 g/dl (32.0-35.9); MEAN CELL VOLUME 86.9 fl (80-96); MEAN PLT VOLUME 7.2 fl (7.5-11.1); PLATELET COUNT 321 10^3/uL (134-434); RDW 17.4 % (11.9-15.9); WHITE BLOOD COUNT 4.1 K/mm3 (4.0-10.0)
[2022-10-09 12:58] LABS: POTASSIUM 4.1 mmol/L (3.5-5.1)
[2022-10-09 13:11] LABS: ALBUMIN 3.1 g/dl (3.4-5.0); BLOOD UREA NITROGEN 25.3 mg/dL (7-18); CALCIUM 8.9 mg/dL (8.5-10.1)
[2022-10-09 13:14] LABS: CREATININE 0.9 mg/dL (0.55-1.3)
[2022-10-09 13:17] LABS: BILIRUBIN,TOTAL 0.2 mg/dL (0.2-1)
[2022-10-09] MEDS ORDERED: MELATONIN 5 MG TABLETS PO SCH (22:00)
[2022-10-09] MEDS: BUDESONIDE/FORMETEROL FUMARATE 160/4.5 mcg INHALER IH SCH (23:13)
[2022-10-09] MEDS: THIAMINE HCL 100 MG TABLET (FP) PO SCH (23:13)
[2022-10-10] MEDS: BICTEGRAV/EMTRICIT/TENOFOV (BIKTARVY) 50-200-25 MG TABLET PO SCH (07:10)
[2022-10-10] MEDS: PRENATAL VITAMINS W/ FOLIC ACID TABLET (FP) PO SCH (09:21)
[2022-10-10] MEDS: BUDESONIDE/FORMETEROL FUMARATE 160/4.5 mcg INHALER IH SCH ×2 (09:21→22:36)
[2022-10-10] MEDS: MELATONIN 5 MG TABLETS PO SCH (22:35)
[2022-10-10] MEDS: THIAMINE HCL 100 MG TABLET (FP) PO SCH (22:36)
[2022-10-11] MEDS: BICTEGRAV/EMTRICIT/TENOFOV (BIKTARVY) 50-200-25 MG TABLET PO SCH (08:21)
[2022-10-11] MEDS: BUDESONIDE/FORMETEROL FUMARATE 160/4.5 mcg INHALER IH SCH ×2 (09:47→22:30)
[2022-10-11] MEDS: PRENATAL VITAMINS W/ FOLIC ACID TABLET (FP) PO SCH (09:47)
[2022-10-11] MEDS ORDERED: methaDONE HCL 10 MG TABLET (FOR DETOX USE ONLY) PO ONE (10:46)
[2022-10-11] MEDS ORDERED: cloNIDine HCL 0.1 MG TABLET PO PRN (10:46)
[2022-10-11] MEDS: MELATONIN 5 MG TABLETS PO SCH (22:30)
[2022-10-11] MEDS: THIAMINE HCL 100 MG TABLET (FP) PO SCH (22:30)
[2022-10-12] MEDS: BICTEGRAV/EMTRICIT/TENOFOV (BIKTARVY) 50-200-25 MG TABLET PO SCH (07:47)
[2022-10-12] MEDS: BUDESONIDE/FORMETEROL FUMARATE 160/4.5 mcg INHALER IH SCH ×2 (10:33→21:32)
[2022-10-12] MEDS: PRENATAL VITAMINS W/ FOLIC ACID TABLET (FP) PO SCH (10:33)
[2022-10-12] MEDS: ACETAMINOPHEN 325 MG TABLET (FP) PO PRN (21:30)
[2022-10-12] MEDS: THIAMINE HCL 100 MG TABLET (FP) PO SCH (21:30)
[2022-10-12] MEDS: MELATONIN 5 MG TABLETS PO SCH (21:30)
[2022-10-13] MEDS: BICTEGRAV/EMTRICIT/TENOFOV (BIKTARVY) 50-200-25 MG TABLET PO SCH (07:54)
[2022-10-13] MEDS ORDERED: methaDONE HCL 10 MG TABLET (FOR DETOX USE ONLY) PO ONE (10:00)
[2022-10-13] MEDS: PRENATAL VITAMINS W/ FOLIC ACID TABLET (FP) PO SCH (10:06)
[2022-10-13] MEDS: BUDESONIDE/FORMETEROL FUMARATE 160/4.5 mcg INHALER IH SCH ×2 (10:07→21:23)
[2022-10-13] MEDS: ACETAMINOPHEN 325 MG TABLET (FP) PO PRN (18:35)
[2022-10-13] MEDS: ALBUTEROL SO4 HFA INHALER IH PRN (19:29)
[2022-10-13] MEDS: MELATONIN 5 MG TABLETS PO SCH (21:22)
[2022-10-13] MEDS: hydrOXYzine PAMOATE 25 MG CAPSULE (FP) PO PRN (21:23)
[2022-10-13] MEDS: THIAMINE HCL 100 MG TABLET (FP) PO SCH (21:23)
[2022-10-14] MEDS: BICTEGRAV/EMTRICIT/TENOFOV (BIKTARVY) 50-200-25 MG TABLET PO SCH (07:17)
[2022-10-14] MEDS: PRENATAL VITAMINS W/ FOLIC ACID TABLET (FP) PO SCH (09:43)
[2022-10-14] MEDS: ALBUTEROL SO4 HFA INHALER IH PRN (09:44)
[2022-10-14] MEDS: BUDESONIDE/FORMETEROL FUMARATE 160/4.5 mcg INHALER IH SCH ×2 (09:44→22:26)
[2022-10-14] MEDS: THIAMINE HCL 100 MG TABLET (FP) PO SCH (22:25)
[2022-10-14] MEDS: MELATONIN 5 MG TABLETS PO SCH (22:25)
[2022-10-15] MEDS: BICTEGRAV/EMTRICIT/TENOFOV (BIKTARVY) 50-200-25 MG TABLET PO SCH (07:00)
[2022-10-15] MEDS: PRENATAL VITAMINS W/ FOLIC ACID TABLET (FP) PO SCH (09:31)
[2022-10-15] MEDS: BUDESONIDE/FORMETEROL FUMARATE 160/4.5 mcg INHALER IH SCH ×2 (09:31→22:07)
[2022-10-15] MEDS: ALBUTEROL SO4 HFA INHALER IH PRN (09:32)
[2022-10-15] MEDS ORDERED: methaDONE HCL 10 MG TABLET (FOR DETOX USE ONLY) PO ONE (10:00)
[2022-10-15] MEDS: MELATONIN 5 MG TABLETS PO SCH (22:07)
[2022-10-15] MEDS: THIAMINE HCL 100 MG TABLET (FP) PO SCH (22:07)
[2022-10-16] MEDS: BICTEGRAV/EMTRICIT/TENOFOV (BIKTARVY) 50-200-25 MG TABLET PO SCH (07:19)
[2022-10-16] MEDS: hydrOXYzine PAMOATE 25 MG CAPSULE (FP) PO PRN (09:54)
[2022-10-16] MEDS: BUDESONIDE/FORMETEROL FUMARATE 160/4.5 mcg INHALER IH SCH (09:54)
[2022-10-16] MEDS: PRENATAL VITAMINS W/ FOLIC ACID TABLET (FP) PO SCH (09:54)
[2022-10-16 17:16] VITALS: BP 80/56; PULSE 108; RESP 16; TEMP 97.6
== END 2022-10-16 17:15 | disposition other institution (70) | DRG 773 ==
LOC: YASAS 01:03 → Y3N 11:39
PROVIDERS: ADMIT Allergy & Immunology; ATTEND Surgery
PROC: HZ2ZZZZ Detoxification Services for Substance Abuse Treatment (ICD-10-PCS; principal; 2022-10-09)
DX: F11.23 Opioid dependence with withdrawal (principal); F19.282 Other psychoactive substance dependence with psychoactive substance-induced sleep disorder; F19.24 Other psychoactive substance dependence with psychoactive substance-induced mood disorder; F64.0 Transsexualism; B20 Human immunodeficiency virus [HIV] disease; Z79.899 Other long term (current) drug therapy; R62.7 Adult failure to thrive; R63.6 Underweight; Z68.1 Body mass index [BMI] 19.9 or less, adult; Z88.1 Allergy status to other antibiotic agents
CPT/HCPCS: 36415; 80053; 82272; 85025; 85027; 86780; 87635; 87811; 99281-25

== ENCOUNTER 2022-10-16 18:42 | Inpatient (IN) | payer OTHER ==
[2022-10-16] MEDS ORDERED: NALOXONE HCL (KLOXXADO) 8 MG SPRAY NS PRN (19:56)
[2022-10-16] MEDS ORDERED: BENZOCAINE/MENTHOL (CHLORASEPTIC ) LOZENGE MM PRN (19:56)
[2022-10-16] MEDS ORDERED: guaiFENesin 600 MG TABLET.ER (FP) PO PRN (19:56)
[2022-10-16] MEDS ORDERED: MAGNESIUM HYDROX 2400MG/30ML ORAL SUSPENSION 30 ML CUP PO PRN (19:56)
[2022-10-16] MEDS ORDERED: IBUPROFEN 600 MG TABLET (FP) PO PRN (19:56)
[2022-10-16] MEDS ORDERED: COLLOIDAL OATMEAL 1 BAR EACH TP PRN (19:56)
[2022-10-16] MEDS ORDERED: NALOXONE HCL 0.4 MG/ML VIAL IVPUSH PRN (19:56)
[2022-10-16] MEDS ORDERED: LOPERAMIDE HCL 2 MG CAPSULE PO PRN (19:56)
[2022-10-16] MEDS ORDERED: IBUPROFEN 400 MG TABLET (FP) PO PRN (19:56)
[2022-10-16] MEDS ORDERED: POLYETHYLENE GLYCOL (HEALTHYLAX) 3350 17 GM PACKET PO PRN (19:56)
[2022-10-16] MEDS ORDERED: ACETAMINOPHEN 325 MG TABLET (FP) PO PRN (19:56)
[2022-10-16] MEDS ORDERED: MAG HYDROX/AL HYDROX/SIMETH 30 ML UNIT-DOSE CUP PO PRN (19:56)
[2022-10-16] MEDS ORDERED: AMMONIUM LACTATE 12% LOTION 225 GM BOTTLE TP PRN (19:56)
[2022-10-16] MEDS ORDERED: P-EPHED 60MG/TRIPROLIDI 2.5MG TABLET PO PRN (19:56)
[2022-10-16] MEDS ORDERED: BENZONATATE 200 MG CAPSULE PO PRN (19:56)
[2022-10-16] MEDS ORDERED: ALBUTEROL SO4 HFA INHALER IH PRN (19:58)
[2022-10-16] MEDS: METHOCARBAMOL 500 MG TABLET PO PRN (20:36)
[2022-10-16] MEDS: hydrOXYzine PAMOATE 25 MG CAPSULE (FP) PO PRN (20:36)
[2022-10-16] MEDS: MELATONIN 5 MG TABLETS PO SCH (21:19)
[2022-10-16] MEDS: BUDESONIDE/FORMETEROL FUMARATE 160/4.5 mcg INHALER IH SCH (21:20)
[2022-10-16] MEDS: THIAMINE HCL 100 MG TABLET (FP) PO SCH (21:20)
[2022-10-17] MEDS: BICTEGRAV/EMTRICIT/TENOFOV (BIKTARVY) 50-200-25 MG TABLET PO SCH (07:08)
[2022-10-17] MEDS: PRENATAL VITAMINS W/ FOLIC ACID TABLET (FP) PO SCH (09:50)
[2022-10-17] MEDS: BUDESONIDE/FORMETEROL FUMARATE 160/4.5 mcg INHALER IH SCH ×2 (09:50→21:08)
[2022-10-17] MEDS: METHOCARBAMOL 500 MG TABLET PO PRN (09:52)
[2022-10-17] MEDS: hydrOXYzine PAMOATE 25 MG CAPSULE (FP) PO PRN ×2 (09:52→21:09)
[2022-10-17] MEDS: MELATONIN 5 MG TABLETS PO SCH (21:09)
[2022-10-17] MEDS: THIAMINE HCL 100 MG TABLET (FP) PO SCH (21:09)
[2022-10-18] MEDS: hydrOXYzine PAMOATE 25 MG CAPSULE (FP) PO PRN ×2 (06:29→21:12)
[2022-10-18] MEDS: BICTEGRAV/EMTRICIT/TENOFOV (BIKTARVY) 50-200-25 MG TABLET PO SCH (07:09)
[2022-10-18] MEDS: PRENATAL VITAMINS W/ FOLIC ACID TABLET (FP) PO SCH (09:35)
[2022-10-18] MEDS: BUDESONIDE/FORMETEROL FUMARATE 160/4.5 mcg INHALER IH SCH ×2 (09:35→21:13)
[2022-10-18] MEDS: METHOCARBAMOL 500 MG TABLET PO PRN ×2 (09:36→21:12)
[2022-10-18] MEDS: MELATONIN 5 MG TABLETS PO SCH (21:12)
[2022-10-18] MEDS: THIAMINE HCL 100 MG TABLET (FP) PO SCH (21:12)
[2022-10-19] MEDS: hydrOXYzine PAMOATE 25 MG CAPSULE (FP) PO PRN ×2 (06:06→21:09)
[2022-10-19] MEDS: BICTEGRAV/EMTRICIT/TENOFOV (BIKTARVY) 50-200-25 MG TABLET PO SCH (07:04)
[2022-10-19] MEDS: PRENATAL VITAMINS W/ FOLIC ACID TABLET (FP) PO SCH (09:57)
[2022-10-19] MEDS: BUDESONIDE/FORMETEROL FUMARATE 160/4.5 mcg INHALER IH SCH ×2 (09:57→21:42)
[2022-10-19] MEDS: MELATONIN 5 MG TABLETS PO SCH (21:08)
[2022-10-19] MEDS: THIAMINE HCL 100 MG TABLET (FP) PO SCH (21:09)
[2022-10-20] MEDS: BICTEGRAV/EMTRICIT/TENOFOV (BIKTARVY) 50-200-25 MG TABLET PO SCH (07:04)
[2022-10-20] MEDS: BUDESONIDE/FORMETEROL FUMARATE 160/4.5 mcg INHALER IH SCH ×2 (09:23→21:13)
[2022-10-20] MEDS: hydrOXYzine PAMOATE 25 MG CAPSULE (FP) PO PRN (09:24)
[2022-10-20] MEDS: PRENATAL VITAMINS W/ FOLIC ACID TABLET (FP) PO SCH (09:24)
[2022-10-20] MEDS: MELATONIN 5 MG TABLETS PO SCH (21:13)
[2022-10-20] MEDS: THIAMINE HCL 100 MG TABLET (FP) PO SCH (21:13)
[2022-10-21] MEDS: BICTEGRAV/EMTRICIT/TENOFOV (BIKTARVY) 50-200-25 MG TABLET PO SCH (07:05)
[2022-10-21] MEDS: PRENATAL VITAMINS W/ FOLIC ACID TABLET (FP) PO SCH (09:27)
[2022-10-21] MEDS: BUDESONIDE/FORMETEROL FUMARATE 160/4.5 mcg INHALER IH SCH ×2 (09:27→21:09)
[2022-10-21] MEDS: hydrOXYzine PAMOATE 25 MG CAPSULE (FP) PO PRN (09:28)
[2022-10-21] MEDS: MELATONIN 5 MG TABLETS PO SCH (21:08)
[2022-10-21] MEDS: THIAMINE HCL 100 MG TABLET (FP) PO SCH (21:08)
[2022-10-22] MEDS: BICTEGRAV/EMTRICIT/TENOFOV (BIKTARVY) 50-200-25 MG TABLET PO SCH (07:02)
[2022-10-22] MEDS: PRENATAL VITAMINS W/ FOLIC ACID TABLET (FP) PO SCH (09:34)
[2022-10-22] MEDS: BUDESONIDE/FORMETEROL FUMARATE 160/4.5 mcg INHALER IH SCH ×2 (09:34→21:04)
[2022-10-22] MEDS: hydrOXYzine PAMOATE 25 MG CAPSULE (FP) PO PRN (09:36)
[2022-10-22] MEDS: MELATONIN 5 MG TABLETS PO SCH (21:04)
[2022-10-22] MEDS: THIAMINE HCL 100 MG TABLET (FP) PO SCH (21:04)
[2022-10-22 22:29] VITALS: RESP 18
[2022-10-23 06:48] VITALS: BP 95/63; PULSE 92; TEMP 97.1
[2022-10-23] MEDS: BICTEGRAV/EMTRICIT/TENOFOV (BIKTARVY) 50-200-25 MG TABLET PO SCH (07:34)
[2022-10-23] MEDS: PRENATAL VITAMINS W/ FOLIC ACID TABLET (FP) PO SCH (09:10)
[2022-10-23] MEDS: BUDESONIDE/FORMETEROL FUMARATE 160/4.5 mcg INHALER IH SCH (09:11)
== END 2022-10-23 12:20 | disposition home or self-care (01) | DRG 772 ==
LOC: YASAS 18:42 → Y5N 18:45
PROVIDERS: ADMIT Allergy & Immunology; ATTEND Psychiatry & Neurology Pain Medicine
PROC: HZ42ZZZ Group Counseling for Substance Abuse Treatment, Cognitive-Behavioral (ICD-10-PCS; principal; 2022-10-16)
DX: F11.20 Opioid dependence, uncomplicated (principal); F10.20 Alcohol dependence, uncomplicated; F14.20 Cocaine dependence, uncomplicated; B20 Human immunodeficiency virus [HIV] disease; E43 Unspecified severe protein-calorie malnutrition; Z68.1 Body mass index [BMI] 19.9 or less, adult; R31.9 Hematuria, unspecified; Z91.199 Patient's noncompliance with other medical treatment and regimen due to unspecified reason
CPT/HCPCS: 83036

== ENCOUNTER 2022-11-03 07:26 | Emergency (ER) | payer OTHER ==
[2022-11-03 07:37] VITALS: BMI 17.4
[2022-11-03 09:25] VITALS: RESP 16
[2022-11-03] MEDS ORDERED: LACTATED RINGERS SOLUTION 1000 ML INFUS.BAG IV ONE (10:07)
[2022-11-03 12:38] LABS: BASO % 0.7 % (0-2.0); EOS % 8.9 % (0-4.5); HEMATOCRIT 42.9 % (35.4-49); HEMOGLOBIN 13.9 GM/dL (11.7-16.9); LYMPH % 16.6 % (8-40); MCH 28.6 pg (25.7-33.7); MCHC 32.4 g/dl (32.0-35.9); MEAN CELL VOLUME 88.3 fl (80-96); MEAN PLT VOLUME 7.1 fl (7.5-11.1); MONO % 12.4 % (3.8-10.2); NEUT % 61.4 % (42.8-82.8); PLATELET COUNT 375 10^3/uL (134-434); RBC 4.86 M/mm3 (4.00-5.60); RDW 16.9 % (11.9-15.9); WHITE BLOOD COUNT 4.7 K/mm3 (4.0-10.0)
[2022-11-03 12:42] VITALS: TEMP 98.1
[2022-11-03 12:50] LABS: POTASSIUM 3.8 mmol/L (3.5-5.1)
[2022-11-03 12:53] LABS: ALBUMIN 3.4 g/dl (3.4-5.0); BLOOD UREA NITROGEN 32.3 mg/dL (7-18)
[2022-11-03 12:56] LABS: CREATININE 0.9 mg/dL (0.55-1.3)
[2022-11-03 12:57] LABS: BILIRUBIN,TOTAL 0.2 mg/dL (0.2-1)
[2022-11-03 14:35] LABS: PH,URINE 5.5 (5.0-8.0); URINE APPEARANCE CLEAR; URINE BILIRUBIN NEGATIVE (NEGATIVE); URINE COLOR YELLOW; URINE GLUCOSE (UA) NEGATIVE (NEGATIVE); URINE KETONE NEGATIVE (NEGATIVE); URINE LEUK ESTERASE NEGATIVE (NEGATIVE); URINE NITRITE NEGATIVE (NEGATIVE); URINE PROTEIN NEGATIVE (NEGATIVE); URINE UROBILINOGEN 0.2 mg/dL (0.2-1.0)
[2022-11-03 14:41] LABS: PHENCYCLIDINE,URINE NEGATIVE (NEGATIVE)
[2022-11-03 14:42] LABS: COCAINE, UR NEGATIVE (NEGATIVE); OPIATES, URI NEGATIVE (NEGATIVE); URINE BARBITURATES NEGATIVE (NEGATIVE)
[2022-11-03] MEDS ORDERED: ACETAMINOPHEN 325 MG TABLET (FP) PO ONE (14:43)
[2022-11-03] MEDS ORDERED: ACETAMINOPHEN 325 MG TABLET (FP) ONE (14:48)
[2022-11-03 14:51] LABS: METHADONE, UR NEGATIVE (NEGATIVE); URINE AMPHETAMINES POSITIVE (NEGATIVE); URINE BENZODIAZEPINES NEGATIVE (NEGATIVE)
[2022-11-03 15:11] VITALS: BP 107/70; PULSE 75
== END 2022-11-03 15:13 | disposition home or self-care (01) ==
LOC: JER 07:26
DX: K62.5 Hemorrhage of anus and rectum (principal); R53.81 Other malaise; R05.9 Cough, unspecified; K13.70 Unspecified lesions of oral mucosa
CPT/HCPCS: 36415; 71045-TC-FY; 80053; 80307; 81003; 82272; 85025; 86850; 86900; 86901; 87040; 87086; 93005; 93010; 99285-25

== ENCOUNTER 2022-11-29 09:32 | Inpatient (IN) | payer OTHER ==
[2022-11-29 10:04] VITALS: BMI 17.7
[2022-11-29] MEDS ORDERED: METHOCARBAMOL 500 MG TABLET PO PRN (10:53)
[2022-11-29] MEDS ORDERED: IBUPROFEN 400 MG TABLET (FP) PO PRN (10:53)
[2022-11-29] MEDS ORDERED: MAG HYDROX/AL HYDROX/SIMETH 30 ML UNIT-DOSE CUP PO PRN (10:53)
[2022-11-29] MEDS ORDERED: DICYCLOMINE HCL 10 MG CAPSULE PO PRN (10:53)
[2022-11-29] MEDS ORDERED: BENZONATATE 200 MG CAPSULE PO PRN (10:53)
[2022-11-29] MEDS ORDERED: hydrOXYzine PAMOATE 25 MG CAPSULE (FP) PO PRN (10:53)
[2022-11-29] MEDS ORDERED: LOPERAMIDE HCL 2 MG CAPSULE PO PRN (10:53)
[2022-11-29] MEDS ORDERED: BISMUTH SUBSALICYLATE 524 MG/30 ML PO PRN (10:53)
[2022-11-29] MEDS ORDERED: MAGNESIUM HYDROX 2400MG/30ML ORAL SUSPENSION 30 ML CUP PO PRN (10:53)
[2022-11-29] MEDS ORDERED: P-EPHED 60MG/TRIPROLIDI 2.5MG TABLET PO PRN (10:53)
[2022-11-29] MEDS ORDERED: NALOXONE HCL (KLOXXADO) 8 MG SPRAY NS PRN (10:53)
[2022-11-29] MEDS ORDERED: BENZOCAINE/MENTHOL (CHLORASEPTIC ) LOZENGE MM PRN (10:53)
[2022-11-29] MEDS ORDERED: IBUPROFEN 600 MG TABLET (FP) PO PRN (10:53)
[2022-11-29] MEDS ORDERED: POLYETHYLENE GLYCOL (HEALTHYLAX) 3350 17 GM PACKET PO PRN (10:53)
[2022-11-29] MEDS ORDERED: guaiFENesin 600 MG TABLET.ER (FP) PO PRN (10:53)
[2022-11-29] MEDS ORDERED: ACETAMINOPHEN 325 MG TABLET (FP) PO PRN (10:53)
[2022-11-29] MEDS ORDERED: NALOXONE HCL 0.4 MG/ML VIAL IM PRN (10:53)
[2022-11-29] MEDS ORDERED: ONDANSETRON *ODT* 4 MG TABLET SL PRN (10:53)
[2022-11-29] MEDS ORDERED: MELATONIN 5 MG TABLETS PO SCH (22:00)
[2022-11-29] MEDS: THIAMINE HCL 100 MG TABLET (FP) PO SCH (22:37)
[2022-11-29] MEDS: MELATONIN 5 MG TABLETS PO SCH (22:38)
[2022-11-30 09:40] LABS: POTASSIUM 4.7 mmol/L (3.5-5.1)
[2022-11-30 09:55] LABS: BLOOD UREA NITROGEN 15.6 mg/dL (7-18); CALCIUM 8.2 mg/dL (8.5-10.1)
[2022-11-30 09:56] LABS: ALBUMIN 2.9 g/dl (3.4-5.0)
[2022-11-30 09:56] LABS: HEMATOCRIT 39.9 % (35.4-49); HEMOGLOBIN 13.4 GM/dL (11.7-16.9); MCH 28.8 pg (25.7-33.7); MCHC 33.5 g/dl (32.0-35.9); MEAN CELL VOLUME 85.8 fl (80-96); MEAN PLT VOLUME 7.3 fl (7.5-11.1); PLATELET COUNT 275 10^3/uL (134-434); RBC 4.65 M/mm3 (4.00-5.60); RDW 16.5 % (11.9-15.9); WHITE BLOOD COUNT 3.5 K/mm3 (4.0-10.0)
[2022-11-30 09:59] LABS: CREATININE 0.7 mg/dL (0.55-1.3)
[2022-11-30 10:00] LABS: BILIRUBIN,TOTAL 0.6 mg/dL (0.2-1); TOT PROT 6.5 g/dl (6.4-8.2)
[2022-11-30] MEDS: PRENATAL VITAMINS W/ FOLIC ACID TABLET (FP) PO SCH (10:42)
[2022-11-30] MEDS ORDERED: cloNIDine HCL 0.1 MG TABLET PO PRN (13:37)
[2022-11-30] MEDS ORDERED: methaDONE HCL 10 MG TABLET (FOR DETOX USE ONLY) PO ONE (13:37)
[2022-11-30] MEDS: THIAMINE HCL 100 MG TABLET (FP) PO SCH (22:07)
[2022-11-30] MEDS: MELATONIN 5 MG TABLETS PO SCH (22:08)
[2022-12-01] MEDS: PRENATAL VITAMINS W/ FOLIC ACID TABLET (FP) PO SCH (10:36)
[2022-12-01 20:57] VITALS: BP 111/71; PULSE 99; RESP 18; TEMP 98.1
[2022-12-01] MEDS ORDERED: CALCIUM CARBONATE 650 MG TABLET PO SCH (22:00)
[2022-12-02] MEDS ORDERED: methaDONE HCL 10 MG TABLET (FOR DETOX USE ONLY) PO ONE (10:00)
[2022-12-04] MEDS ORDERED: methaDONE HCL 10 MG TABLET (FOR DETOX USE ONLY) PO ONE (10:00)
== END 2022-12-01 20:29 | disposition left against medical advice (07) | DRG 770 ==
LOC: YASAS 09:32 → Y6N 11:48
PROVIDERS: ADMIT Allergy & Immunology; ATTEND Surgery
PROC: HZ2ZZZZ Detoxification Services for Substance Abuse Treatment (ICD-10-PCS; principal; 2022-11-29)
DX: F11.20 Opioid dependence, uncomplicated (principal); F10.20 Alcohol dependence, uncomplicated; F15.10 Other stimulant abuse, uncomplicated; F19.282 Other psychoactive substance dependence with psychoactive substance-induced sleep disorder; F19.24 Other psychoactive substance dependence with psychoactive substance-induced mood disorder; B20 Human immunodeficiency virus [HIV] disease; E83.51 Hypocalcemia; J44.9 Chronic obstructive pulmonary disease, unspecified; Z87.09 Personal history of other diseases of the respiratory system
CPT/HCPCS: 36415; 71046-TC-FY; 80053; 85027; 86780; 87635

== ENCOUNTER 2023-03-14 07:48 | Emergency (ER) | payer OTHER ==
[2023-03-14 08:02] VITALS: BP 124/83; PULSE 82; RESP 22; TEMP 97.5; BMI 16.9
[2023-03-14] MEDS ORDERED: ACETAMINOPHEN 325 MG TABLET (FP) PO ONE (09:06)
[2023-03-14] MEDS ORDERED: ACETAMINOPHEN 1000 MG/100 ML BAG IVPB ONE (09:16)
[2023-03-14] MEDS ORDERED: ACETAMINOPHEN INJECTION 100 ML IVPB ONE (09:51)
[2023-03-14 09:59] LABS: EOS % 8.2 % (0-4.5); HEMATOCRIT 42.6 % (35.4-49); HEMOGLOBIN 14.3 GM/dL (11.7-16.9); LYMPH % 17.2 % (8-40); MCH 29.5 pg (25.7-33.7); MCHC 33.5 g/dl (32.0-35.9); MEAN PLT VOLUME 6.6 fl (7.5-11.1); MONO % 15.8 % (3.8-10.2); NEUT % 57.8 % (42.8-82.8); PLATELET COUNT 364 10^3/uL (134-434); RBC 4.84 M/mm3 (4.00-5.60); RDW 17.8 % (11.9-15.9); WHITE BLOOD COUNT 4.4 K/mm3 (4.0-10.0)
[2023-03-14 11:38] LABS: POTASSIUM 4.1 mmol/L (3.5-5.1)
[2023-03-14 11:41] LABS: ALBUMIN 3.7 g/dl (3.4-5.0); BLOOD UREA NITROGEN 35.8 mg/dL (7-18); CALCIUM 9.2 mg/dL (8.5-10.1); MAGNESIUM 2.7 mg/dL (1.8-2.4)
[2023-03-14 11:44] LABS: PHOSPHOROUS 3.5 mg/dL (2.5-4.9)
[2023-03-14 11:45] LABS: BILIRUBIN,TOTAL 0.2 mg/dL (0.2-1); TOT PROT 8.8 g/dl (6.4-8.2)
[2023-03-14 12:41] LABS: PH,URINE 5.5 (5.0-8.0); URINE APPEARANCE CLEAR; URINE BILIRUBIN NEGATIVE (NEGATIVE); URINE COLOR YELLOW; URINE GLUCOSE (UA) NEGATIVE (NEGATIVE); URINE KETONE NEGATIVE (NEGATIVE); URINE LEUK ESTERASE NEGATIVE (NEGATIVE); URINE NITRITE NEGATIVE (NEGATIVE); URINE PROTEIN TRACE (NEGATIVE); URINE UROBILINOGEN 0.2 mg/dL (0.2-1.0)
== END 2023-03-14 15:01 | disposition home or self-care (01) ==
LOC: JER 07:48
PROC: 3E033NZ Introduction of Analgesics, Hypnotics, Sedatives into Peripheral Vein, Percutaneous Approach (ICD-10-PCS; principal; 2023-03-14)
DX: K62.5 Hemorrhage of anus and rectum (principal); J02.9 Acute pharyngitis, unspecified; R13.10 Dysphagia, unspecified; R07.9 Chest pain, unspecified; R19.7 Diarrhea, unspecified; B20 Human immunodeficiency virus [HIV] disease; Z59.00 Homelessness unspecified; Z20.822 Contact with and (suspected) exposure to COVID-19
CPT/HCPCS: 0241U-QW; 36415; 70450-TC; 71045-TC-FY; 80053; 81003; 82272; 83735; 84100; 85025; 93005; 93010; 99285-25

== ENCOUNTER 2023-04-25 08:21 | Inpatient (IN) | payer OTHER ==
[2023-04-25 08:34] VITALS: BMI 18.6
[2023-04-25 10:50] LABS: PH,URINE 5.5 (5.0-8.0); URINE APPEARANCE CLOUDY; URINE BILIRUBIN NEGATIVE (NEGATIVE); URINE COLOR YELLOW; URINE GLUCOSE (UA) NEGATIVE (NEGATIVE); URINE KETONE NEGATIVE (NEGATIVE); URINE LEUK ESTERASE NEGATIVE (NEGATIVE); URINE NITRITE NEGATIVE (NEGATIVE); URINE PROTEIN TRACE (NEGATIVE); URINE UROBILINOGEN 0.2 mg/dL (0.2-1.0)
[2023-04-25 10:54] LABS: EOS % 11.9 % (0-4.5); HEMATOCRIT 36.3 % (35.4-49); HEMOGLOBIN 12.1 GM/dL (11.7-16.9); LYMPH % 16.3 % (8-40); MCH 29.3 pg (25.7-33.7); MCHC 33.3 g/dl (32.0-35.9); MEAN CELL VOLUME 88.2 fl (80-96); MEAN PLT VOLUME 6.9 fl (7.5-11.1); MONO % 14.3 % (3.8-10.2); NEUT % 56.5 % (42.8-82.8); PLATELET COUNT 486 10^3/uL (134-434); RBC 4.11 M/mm3 (4.00-5.60); RDW 16.1 % (11.9-15.9); WHITE BLOOD COUNT 5.7 K/mm3 (4.0-10.0)
[2023-04-25 11:06] LABS: COCAINE, UR NEGATIVE (NEGATIVE); OPIATES, URI NEGATIVE (NEGATIVE); URINE BARBITURATES NEGATIVE (NEGATIVE)
[2023-04-25 11:07] LABS: METHADONE, UR NEGATIVE (NEGATIVE); PHENCYCLIDINE,URINE NEGATIVE (NEGATIVE); URINE BENZODIAZEPINES NEGATIVE (NEGATIVE)
[2023-04-25 11:09] LABS: POTASSIUM 4.8 mmol/L (3.5-5.1)
[2023-04-25 11:11] LABS: URINE AMPHETAMINES POSITIVE (NEGATIVE)
[2023-04-25 11:11] LABS: CALCIUM 9.2 mg/dL (8.5-10.1)
[2023-04-25 11:12] LABS: BLOOD UREA NITROGEN 47.7 mg/dL (7-18)
[2023-04-25 11:15] LABS: CREATININE 1.2 mg/dL (0.55-1.3)
[2023-04-25 11:16] LABS: BILIRUBIN,TOTAL 0.4 mg/dL (0.2-1); TOT PROT 8.1 g/dl (6.4-8.2)
[2023-04-25] MEDS: SODIUM CHLORIDE 1,000 ML IV STA (12:35)
[2023-04-25] MEDS ORDERED: ALBUTEROL SO4 2.5/IPRATROPIUM 0.5 INH SOL 3 ML VIAL.NEB. NEB PRN (15:26)
[2023-04-25] MEDS ORDERED: ACETAMINOPHEN 500 MG TABLET (FP) PO PRN (15:28)
[2023-04-25] MEDS ORDERED: CEFTRIAXONE 1 GM/50 ML BAG ONE (16:12)
[2023-04-25] MEDS: CEFTRIAXONE 1 GM in DEXTROSE 5%-WATER - 50 ML IVPB SCH (16:20)
[2023-04-25] MEDS ORDERED: AZITHROMYCIN IVPB 500 MG/250 ML BAG IVPB ONE (17:14)
[2023-04-25] MEDS: AZITHROMYCIN IVPB 500 MG/250 ML BAG IVPB SCH (17:21)
[2023-04-25] MEDS: ATOVAQUONE 750 MG/5 ML (UNIT-DOSE PACKAGING) PO ONE (17:21)
[2023-04-26 09:14] LABS: BASO % 0.7 % (0-2.0); EOS % 12.9 % (0-4.5); HEMATOCRIT 35.8 % (35.4-49); HEMOGLOBIN 11.8 GM/dL (11.7-16.9); LYMPH % 13.9 % (8-40); MCH 29.1 pg (25.7-33.7); MCHC 32.9 g/dl (32.0-35.9); MEAN CELL VOLUME 88.4 fl (80-96); MEAN PLT VOLUME 6.9 fl (7.5-11.1); NEUT % 60.5 % (42.8-82.8); PLATELET COUNT 443 10^3/uL (134-434); RBC 4.05 M/mm3 (4.00-5.60); RDW 15.8 % (11.9-15.9); WHITE BLOOD COUNT 4.9 K/mm3 (4.0-10.0)
[2023-04-26 09:39] LABS: POTASSIUM 4.8 mmol/L (3.5-5.1)
[2023-04-26 09:46] LABS: CALCIUM 9.3 mg/dL (8.5-10.1)
[2023-04-26 09:47] LABS: BLOOD UREA NITROGEN 25.7 mg/dL (7-18)
[2023-04-26] MEDS: ATOVAQUONE 750 MG/5 ML (UNIT-DOSE PACKAGING) PO SCH (09:48)
[2023-04-26 09:50] LABS: CREATININE 0.8 mg/dL (0.55-1.3)
[2023-04-26 09:52] VITALS: RESP 18
[2023-04-26] MEDS: BICTEGRAV/EMTRICIT/TENOFOV (BIKTARVY) 50-200-25 MG TABLET PO SCH (11:10)
[2023-04-26] MEDS: oxyCODONE HCL 5 MG TABLET PO PRN (12:47)
[2023-04-27 10:05] LABS: BASO % 1.2 % (0-2.0); EOS % 16.9 % (0-4.5); HEMATOCRIT 36.7 % (35.4-49); HEMOGLOBIN 12.4 GM/dL (11.7-16.9); LYMPH % 16.2 % (8-40); MCH 29.1 pg (25.7-33.7); MCHC 33.7 g/dl (32.0-35.9); MEAN CELL VOLUME 86.5 fl (80-96); MEAN PLT VOLUME 6.7 fl (7.5-11.1); MONO % 13.1 % (3.8-10.2); NEUT % 52.6 % (42.8-82.8); PLATELET COUNT 419 10^3/uL (134-434); RBC 4.24 M/mm3 (4.00-5.60); RDW 15.7 % (11.9-15.9); WHITE BLOOD COUNT 4.5 K/mm3 (4.0-10.0)
[2023-04-27 10:10] LABS: POTASSIUM 4.8 mmol/L (3.5-5.1)
[2023-04-27 10:37] LABS: CALCIUM 9.7 mg/dL (8.5-10.1)
[2023-04-27 10:39] LABS: ALBUMIN 2.7 g/dl (3.4-5.0); BLOOD UREA NITROGEN 18.4 mg/dL (7-18)
[2023-04-27 10:44] LABS: BILIRUBIN,TOTAL 0.2 mg/dL (0.2-1); TOT PROT 7.4 g/dl (6.4-8.2)
[2023-04-27] MEDS: SODIUM CHLORIDE 0.9% 500 ML INFUS.BAG IV ONE (21:14)
[2023-04-27] MEDS: HEPARIN NA (PORCINE) 5,000 UNITS/ML 1ML VIAL SQ SCH (22:10)
[2023-04-28] MEDS: SODIUM CHLORIDE 0.9% 500 ML INFUS.BAG IV ONE (05:42)
[2023-04-28] MEDS: ACETAMINOPHEN 325 MG TABLET (FP) PO PRN (10:41)
[2023-04-28] MEDS: LACTATED RINGERS SOLUTION 1000 ML INFUS.BAG IV ONE (10:43)
[2023-04-28] MEDS: LACTATED RINGERS SOLUTION 1,000 ML/1,000 ML INFUS.BAG IV SCH (10:43)
[2023-04-28] MEDS: INSULIN ASPART SLIDING SCALE (NOVOLOG) 1 VIAL SQ SCH (17:11)
[2023-04-29] MEDS ORDERED: ACETAMINOPHEN 325 MG TABLET (FP) PO PRN (07:39)
[2023-04-29] MEDS: KETOROLAC TROMETHAMINE 30 MG/1 ML VIAL IVPUSH PRN (09:44)
[2023-04-29] MEDS: MULTIVITAMINS THER W-MINERALS COMBO TABLET (FP) PO SCH (09:44)
[2023-04-29 09:47] LABS: BASO % 1.3 % (0-2.0); EOS % 19.6 % (0-4.5); HEMATOCRIT 33.3 % (35.4-49); LYMPH % 13.6 % (8-40); MCH 31.1 pg (25.7-33.7); MCHC 36.1 g/dl (32.0-35.9); MEAN CELL VOLUME 86.2 fl (80-96); MEAN PLT VOLUME 6.7 fl (7.5-11.1); MONO % 10.3 % (3.8-10.2); NEUT % 55.2 % (42.8-82.8); PLATELET COUNT 367 10^3/uL (134-434); RBC 3.86 M/mm3 (4.00-5.60); RDW 15.8 % (11.9-15.9); WHITE BLOOD COUNT 5.3 K/mm3 (4.0-10.0)
[2023-04-29 10:23] LABS: POTASSIUM 4.4 mmol/L (3.5-5.1)
[2023-04-29 10:34] LABS: ALBUMIN 2.8 g/dl (3.4-5.0); CALCIUM 8.9 mg/dL (8.5-10.1)
[2023-04-29 10:38] LABS: CREATININE 1.1 mg/dL (0.55-1.3)
[2023-04-29 10:40] LABS: BILIRUBIN,TOTAL 0.2 mg/dL (0.2-1); TOT PROT 7.3 g/dl (6.4-8.2)
[2023-04-29 17:08] LABS: COCAINE, UR NEGATIVE (NEGATIVE); METHADONE, UR NEGATIVE (NEGATIVE); OPIATES, URI NEGATIVE (NEGATIVE); PHENCYCLIDINE,URINE NEGATIVE (NEGATIVE); URINE AMPHETAMINES NEGATIVE (NEGATIVE); URINE BARBITURATES NEGATIVE (NEGATIVE); URINE BENZODIAZEPINES NEGATIVE (NEGATIVE)
[2023-04-29] MEDS: QUEtiapine FUMARATE 25 MG TABLET PO ONE (18:40)
[2023-04-29] MEDS: ACETAMINOPHEN 1000 MG/100 ML BAG IVPB PRN (21:30)
[2023-04-29] MEDS ORDERED: hydrOXYzine PAMOATE 25 MG CAPSULE (FP) PO PRN (22:43)
[2023-04-30 10:22] LABS: HEMATOCRIT 34.8 % (35.4-49); HEMOGLOBIN 11.9 GM/dL (11.7-16.9); MCH 30.1 pg (25.7-33.7); MCHC 34.1 g/dl (32.0-35.9); MEAN CELL VOLUME 88.2 fl (80-96); MEAN PLT VOLUME 7.1 fl (7.5-11.1); PLATELET COUNT 348 10^3/uL (134-434); RBC 3.94 M/mm3 (4.00-5.60); RDW 15.8 % (11.9-15.9); WHITE BLOOD COUNT 5.2 K/mm3 (4.0-10.0)
[2023-04-30 10:45] LABS: POTASSIUM 4.7 mmol/L (3.5-5.1)
[2023-04-30 10:57] LABS: ANISOCYTOSIS 0; MACROCYTOSIS 0
[2023-04-30 11:07] LABS: CALCIUM 8.9 mg/dL (8.5-10.1)
[2023-04-30 11:09] LABS: ALBUMIN 2.7 g/dl (3.4-5.0); BLOOD UREA NITROGEN 18.2 mg/dL (7-18)
[2023-04-30 11:11] LABS: BILIRUBIN,TOTAL 0.1 mg/dL (0.2-1); CREATININE 1.2 mg/dL (0.55-1.3); TOT PROT 7.3 g/dl (6.4-8.2)
[2023-04-30] MEDS: hydrOXYzine PAMOATE 25 MG CAPSULE (FP) PO PRN (21:26)
[2023-05-01 07:03] VITALS: BP 104/59; PULSE 58; TEMP 98
[2023-05-01] MEDS: BICTEGRAV/EMTRICIT/TENOFOV (BIKTARVY) 50-200-25 MG TABLET PO SCH (09:23)
[2023-05-01 10:03] LABS: BASO % 1.2 % (0-2.0); EOS % 19.4 % (0-4.5); HEMATOCRIT 36.3 % (35.4-49); HEMOGLOBIN 12.5 GM/dL (11.7-16.9); LYMPH % 15.3 % (8-40); MCH 29.6 pg (25.7-33.7); MCHC 34.5 g/dl (32.0-35.9); MEAN CELL VOLUME 85.7 fl (80-96); MEAN PLT VOLUME 6.7 fl (7.5-11.1); MONO % 12.9 % (3.8-10.2); NEUT % 51.2 % (42.8-82.8); PLATELET COUNT 396 10^3/uL (134-434); RBC 4.24 M/mm3 (4.00-5.60); RDW 15.7 % (11.9-15.9); WHITE BLOOD COUNT 5.2 K/mm3 (4.0-10.0)
[2023-05-01 10:24] LABS: CALCIUM 9.3 mg/dL (8.5-10.1)
[2023-05-01 10:25] LABS: BLOOD UREA NITROGEN 22.7 mg/dL (7-18)
[2023-05-01 10:28] LABS: CREATININE 1.1 mg/dL (0.55-1.3)
[2023-05-01 10:30] LABS: BILIRUBIN,TOTAL 0.2 mg/dL (0.2-1); TOT PROT 7.6 g/dl (6.4-8.2)
== END 2023-05-01 11:32 | disposition home or self-care (01) | DRG 893 ==
LOC: JER 08:21 → JERBED 15:34 → J5S 19:50 → OBSVTOIN 04-28 10:52
PROVIDERS: ADMIT Internal Medicine; ATTEND Internal Medicine
DX: J18.9 Pneumonia, unspecified organism (principal); B20 Human immunodeficiency virus [HIV] disease; J44.9 Chronic obstructive pulmonary disease, unspecified; E11.9 Type 2 diabetes mellitus without complications; R64 Cachexia; Z68.1 Body mass index [BMI] 19.9 or less, adult; E44.0 Moderate protein-calorie malnutrition; F10.20 Alcohol dependence, uncomplicated; K86.1 Other chronic pancreatitis; F39 Unspecified mood [affective] disorder; R19.7 Diarrhea, unspecified; F19.10 Other psychoactive substance abuse, uncomplicated; R91.8 Other nonspecific abnormal finding of lung field; J47.9 Bronchiectasis, uncomplicated
CPT/HCPCS: 0241U-QW; 36415; 71046-TC-FY; 71250-TC; 80048; 80053; 80307; 81003; 82962; 83615; 84443; 85025; 86359; 86360; 86682; 87045; 87046; 87070; 87107; 87186; 87205; 87281; 87324; 87449; 87798; 87899; 93005; 93010; 97116-GP; 97161-GP; 99285-25; G0378; J0131; J1644

== ENCOUNTER 2023-06-14 12:55 | Observation (INO) | payer OTHER ==
[2023-06-14 16:00] LABS: VENOUS BASE EXCESS -3.5 mmol/L (-2-2); VENOUS O2 SATURATION 92.1 % (70-80); VENOUS PCO2 34.7 mmHg (38-52); VENOUS PH 7.393 (7.310-7.410)
[2023-06-14 16:05] LABS: EOS % 7.8 % (0-4.5); HEMATOCRIT 38.6 % (35.4-49); HEMOGLOBIN 12.6 GM/dL (11.7-16.9); LYMPH % 15.9 % (8-40); MCH 27.6 pg (25.7-33.7); MCHC 32.6 g/dl (32.0-35.9); MEAN CELL VOLUME 84.8 fl (80-96); MEAN PLT VOLUME 6.7 fl (7.5-11.1); MONO % 12.2 % (3.8-10.2); NEUT % 63.1 % (42.8-82.8); PLATELET COUNT 382 10^3/uL (134-434); RBC 4.56 M/mm3 (4.00-5.60); RDW 16.9 % (11.9-15.9); WHITE BLOOD COUNT 3.8 K/mm3 (4.0-10.0)
[2023-06-14 16:11] LABS: INR 0.93 (0.83-1.09); PROTHROMBIN TIME (PATIENT) 10.8 SEC (9.7-13.0)
[2023-06-14 16:14] LABS: ACTIVATED PTT 32.9 SECONDS (25.2-36.5)
[2023-06-14 16:27] LABS: POTASSIUM 3.8 mmol/L (3.5-5.1)
[2023-06-14 16:28] LABS: CALCIUM 8.8 mg/dL (8.5-10.1)
[2023-06-14 16:29] LABS: ALBUMIN 3.1 g/dl (3.4-5.0)
[2023-06-14 16:32] LABS: CREATININE 0.8 mg/dL (0.55-1.3)
[2023-06-14 16:34] LABS: BILIRUBIN,TOTAL 0.2 mg/dL (0.2-1); TOT PROT 7.8 g/dl (6.4-8.2)
[2023-06-15 00:57] LABS: EPI CELLS >36 /uL (0-25.1); HYALINE CASTS 2 /uL (0-3.1); URINE APPEARANCE CLOUDY; URINE BACTERIA >9,000 /uL (0-1359); URINE BILIRUBIN NEGATIVE (NEGATIVE); URINE COLOR YELLOW; URINE GLUCOSE (UA) NEGATIVE (NEGATIVE); URINE KETONE TRACE (NEGATIVE); URINE LEUK ESTERASE NEGATIVE (NEGATIVE); URINE NITRITE POSITIVE (NEGATIVE); URINE PROTEIN TRACE (NEGATIVE); URINE RBC 10 /uL (0-23.9)
[2023-06-15] MEDS: DEXTROSE 5%-0.45% SALINE 1,000 ML IV SCH ×2 (01:01→17:40)
[2023-06-15 02:30] LABS: OPIATES, URI NEGATIVE (NEGATIVE); URINE BARBITURATES NEGATIVE (NEGATIVE)
[2023-06-15 02:31] LABS: COCAINE, UR NEGATIVE (NEGATIVE); METHADONE, UR NEGATIVE (NEGATIVE); URINE BENZODIAZEPINES NEGATIVE (NEGATIVE)
[2023-06-15 02:40] LABS: PHENCYCLIDINE,URINE NEGATIVE (NEGATIVE); URINE AMPHETAMINES POSITIVE (NEGATIVE)
[2023-06-15] MEDS ORDERED: ACETAMINOPHEN 1000 MG/100 ML BAG IVPB PRN ×2 (04:31→15:05)
[2023-06-15 07:34] LABS: BASO % 0.9 % (0-2.0); EOS % 6.3 % (0-4.5); HEMATOCRIT 37.3 % (35.4-49); HEMOGLOBIN 11.9 GM/dL (11.7-16.9); LYMPH % 10.2 % (8-40); MCH 27.2 pg (25.7-33.7); MCHC 31.9 g/dl (32.0-35.9); MEAN CELL VOLUME 85.3 fl (80-96); MEAN PLT VOLUME 6.8 fl (7.5-11.1); MONO % 10.2 % (3.8-10.2); NEUT % 72.4 % (42.8-82.8); PLATELET COUNT 353 10^3/uL (134-434); RBC 4.37 M/mm3 (4.00-5.60); RDW 16.8 % (11.9-15.9); WHITE BLOOD COUNT 5.3 K/mm3 (4.0-10.0)
[2023-06-15 07:59] LABS: POTASSIUM 4.2 mmol/L (3.5-5.1)
[2023-06-15 08:06] LABS: ALBUMIN 2.7 g/dl (3.4-5.0); BLOOD UREA NITROGEN 23.1 mg/dL (7-18); CALCIUM 8.1 mg/dL (8.5-10.1)
[2023-06-15 08:11] LABS: BILIRUBIN,TOTAL 0.2 mg/dL (0.2-1); TOT PROT 6.6 g/dl (6.4-8.2)
[2023-06-15] MEDS: BICTEGRAV/EMTRICIT/TENOFOV (BIKTARVY) 50-200-25 MG TABLET PO SCH (08:31)
[2023-06-15] MEDS: ENOXAPARIN NA (PORCINE) 40 MG/0.4 ML DISP.SYRIN SQ SCH (09:02)
[2023-06-15] MEDS ORDERED: valACYclovir HCL 500 MG TABLET (FP) PO SCH (10:00)
[2023-06-15] MEDS ORDERED: hydrOXYzine PAMOATE 25 MG CAPSULE (FP) PO PRN ×2 (11:38→15:05)
[2023-06-15 14:57] VITALS: BMI 17.6
[2023-06-16] MEDS: BICTEGRAV/EMTRICIT/TENOFOV (BIKTARVY) 50-200-25 MG TABLET PO SCH (08:38)
[2023-06-16] MEDS: THIAMINE HCL 100 MG TABLET (FP) PO SCH (09:10)
[2023-06-16] MEDS: FOLIC ACID 1 MG TABLET (FP) PO SCH (09:10)
[2023-06-16] MEDS: ENOXAPARIN NA (PORCINE) 40 MG/0.4 ML DISP.SYRIN SQ SCH (09:10)
[2023-06-16] MEDS: ACETAMINOPHEN 325 MG TABLET (FP) PO ONE (09:11)
[2023-06-16 09:27] LABS: BASO % 0.6 % (0-2.0); EOS % 1.4 % (0-4.5); HEMATOCRIT 39.9 % (35.4-49); LYMPH % 8.6 % (8-40); MCH 27.5 pg (25.7-33.7); MCHC 32.7 g/dl (32.0-35.9); MEAN CELL VOLUME 84.1 fl (80-96); MEAN PLT VOLUME 6.9 fl (7.5-11.1); MONO % 8.7 % (3.8-10.2); NEUT % 80.7 % (42.8-82.8); PLATELET COUNT 329 10^3/uL (134-434); RBC 4.75 M/mm3 (4.00-5.60); RDW 16.7 % (11.9-15.9); WHITE BLOOD COUNT 7.4 K/mm3 (4.0-10.0)
[2023-06-16 09:51] LABS: POTASSIUM 3.8 mmol/L (3.5-5.1)
[2023-06-16 09:54] LABS: CALCIUM 8.6 mg/dL (8.5-10.1)
[2023-06-16 09:55] LABS: MAGNESIUM 1.7 mg/dL (1.8-2.4)
[2023-06-16 09:57] LABS: CREATININE 0.9 mg/dL (0.55-1.3)
[2023-06-16] MEDS ORDERED: THIAMINE HCL 100 MG TABLET (FP) PO SCH (10:00)
[2023-06-16] MEDS ORDERED: FOLIC ACID 1 MG TABLET (FP) PO SCH (10:00)
[2023-06-16] MEDS: CYANOCOBALAMIN (VITAMIN B-12) 100 MCG TABLET PO SCH (14:43)
[2023-06-16] MEDS: MAGNESIUM SULF 50% (8.12 MEQ/2 ML-1 GM VIAL) IVPB ONE (15:44)
[2023-06-16] MEDS ORDERED: ACETAMINOPHEN 325 MG TABLET (FP) PO PRN ×2 (16:31→16:32)
[2023-06-16] MEDS: BUDESONIDE/FORMETEROL FUMARATE 160/4.5 mcg INHALER IH SCH (21:45)
[2023-06-17 09:04] LABS: BASO % 0.7 % (0-2.0); EOS % 7.3 % (0-4.5); HEMATOCRIT 39.6 % (35.4-49); HEMOGLOBIN 12.8 GM/dL (11.7-16.9); LYMPH % 20.4 % (8-40); MCH 27.4 pg (25.7-33.7); MCHC 32.4 g/dl (32.0-35.9); MEAN CELL VOLUME 84.5 fl (80-96); MEAN PLT VOLUME 6.9 fl (7.5-11.1); NEUT % 56.6 % (42.8-82.8); PLATELET COUNT 357 10^3/uL (134-434); RBC 4.69 M/mm3 (4.00-5.60); RDW 16.6 % (11.9-15.9); WHITE BLOOD COUNT 4.1 K/mm3 (4.0-10.0)
[2023-06-17] MEDS: AMINO ACIDS/PROTEIN HYDROLYS 30 ML LIQUID.PKT PO SCH (09:08)
[2023-06-17 09:23] LABS: POTASSIUM 4.5 mmol/L (3.5-5.1)
[2023-06-17 09:30] LABS: ALBUMIN 2.8 g/dl (3.4-5.0); BLOOD UREA NITROGEN 18.4 mg/dL (7-18); CALCIUM 8.5 mg/dL (8.5-10.1); MAGNESIUM 1.9 mg/dL (1.8-2.4)
[2023-06-17 09:33] LABS: CREATININE 0.9 mg/dL (0.55-1.3); PHOSPHOROUS 2.9 mg/dL (2.5-4.9)
[2023-06-17 09:35] LABS: BILIRUBIN,TOTAL 0.2 mg/dL (0.2-1); TOT PROT 7.5 g/dl (6.4-8.2)
[2023-06-18 05:22] VITALS: RESP 17
[2023-06-18] MEDS ORDERED: IBUPROFEN 400 MG TABLET (FP) PO PRN (07:35)
[2023-06-18] MEDS: ATOVAQUONE 750 MG/5 ML (UNIT-DOSE PACKAGING) PO SCH (09:13)
[2023-06-18 09:15] VITALS: BP 102/63; PULSE 70; TEMP 98
== END 2023-06-18 13:29 | disposition home or self-care (01) ==
LOC: JER 12:55 → JERBED 17:43 → J6S 06-15 14:37 → J8W 06-17 11:22
PROVIDERS: ADMIT Internal Medicine; ATTEND Internal Medicine
PROC: 3E0337Z Introduction of Electrolytic and Water Balance Substance into Peripheral Vein, Percutaneous Approach (ICD-10-PCS; principal; 2023-06-14)
PROC: 3E023GC Introduction of Other Therapeutic Substance into Muscle, Percutaneous Approach (ICD-10-PCS; 2023-06-14)
PROC: 3E033GC Introduction of Other Therapeutic Substance into Peripheral Vein, Percutaneous Approach (ICD-10-PCS; 2023-06-14)
DX: R53.1 Weakness (principal); E11.9 Type 2 diabetes mellitus without complications; B20 Human immunodeficiency virus [HIV] disease; J44.9 Chronic obstructive pulmonary disease, unspecified; M16.11 Unilateral primary osteoarthritis, right hip; F41.9 Anxiety disorder, unspecified; M87.9 Osteonecrosis, unspecified; K86.1 Other chronic pancreatitis; F19.10 Other psychoactive substance abuse, uncomplicated; M87.059 Idiopathic aseptic necrosis of unspecified femur; Z91.199 Patient's noncompliance with other medical treatment and regimen due to unspecified reason; Z86.14 Personal history of Methicillin resistant Staphylococcus aureus infection; Z91.148 Patient's other noncompliance with medication regimen for other reason; J47.9 Bronchiectasis, uncomplicated; Z91.013 Allergy to seafood; Z88.8 Allergy status to other drugs, medicaments and biological substances; Z88.1 Allergy status to other antibiotic agents; F17.200 Nicotine dependence, unspecified, uncomplicated
CPT/HCPCS: 0241U-QW; 36415; 71045-TC-FY; 71250-TC; 80048; 80053; 80307; 81003; 82550; 82803; 82955; 83605; 83735; 84100; 84484; 85025; 85610; 85730; 86359; 86360; 86850; 86900; 86901; 87040; 87086; 87186; 87305; 87449; 93005; 93010; 93306-TC; 96361; 96372; 96374; 96375; 97116-GP; 97162-GP; 99285-25; G0378

== ENCOUNTER 2023-08-12 15:20 | Emergency (ER) | payer OTHER ==
[2023-08-12 15:30] VITALS: RESP 18; BMI 21.5
[2023-08-12 17:42] LABS: BASO % 1.4 % (0-2.0); HEMATOCRIT 37.8 % (35.4-49); HEMOGLOBIN 12.4 GM/dL (11.7-16.9); MCH 28.1 pg (25.7-33.7); MCHC 32.9 g/dl (32.0-35.9); MEAN CELL VOLUME 85.3 fl (80-96); MONO % 14.3 % (3.8-10.2); NEUT % 53.3 % (42.8-82.8); PLATELET COUNT 340 10^3/uL (134-434); RBC 4.43 M/mm3 (4.00-5.60); RDW 17.4 % (11.9-15.9); WHITE BLOOD COUNT 4.6 K/mm3 (4.0-10.0)
[2023-08-12 17:49] LABS: INR 0.89 (0.83-1.09); PROTHROMBIN TIME (PATIENT) 10.1 SEC (9.7-13.0)
[2023-08-12 17:55] VITALS: BP 111/62; PULSE 74; TEMP 97.7
[2023-08-12 18:03] LABS: POTASSIUM 3.8 mmol/L (3.5-5.1)
[2023-08-12 18:06] LABS: CALCIUM 8.7 mg/dL (8.5-10.1)
[2023-08-12 18:07] LABS: ALBUMIN 3.1 g/dl (3.4-5.0); BLOOD UREA NITROGEN 31.5 mg/dL (7-18)
[2023-08-12 18:10] LABS: CREATININE 0.9 mg/dL (0.55-1.3)
[2023-08-12 18:12] LABS: BILIRUBIN,TOTAL 0.3 mg/dL (0.2-1); TOT PROT 7.3 g/dl (6.4-8.2)
== END 2023-08-12 20:40 | disposition home or self-care (01) ==
LOC: JER 15:20
DX: R53.1 Weakness (principal); R21 Rash and other nonspecific skin eruption; R05.9 Cough, unspecified; R53.81 Other malaise; R30.0 Dysuria; B20 Human immunodeficiency virus [HIV] disease; L24.9 Irritant contact dermatitis, unspecified cause; Z20.822 Contact with and (suspected) exposure to COVID-19
CPT/HCPCS: 0241U-QW; 36415; 71045-TC-FY; 80053; 84484; 85025; 85610; 86359; 86360; 86803; 86850; 86900; 86901; 87040; 87522; 87536; 87902; 93005; 93010; 99285-25

== ENCOUNTER 2024-01-24 20:52 | Observation (INO) | payer OTHER ==
[2024-01-24] MEDS ORDERED: CEFTRIAXONE 1 GM/50 ML BAG ONE (22:43)
[2024-01-24] MEDS ORDERED: ALBUTEROL SO4 2.5/IPRATROPIUM 0.5 INH SOL 3 ML VIAL.NEB. NEB ONE (22:43)
[2024-01-24] MEDS: ALBUTEROL SO4 2.5/IPRATROPIUM 0.5 INH SOL 3 ML VIAL.NEB. NEB SCH (23:00)
[2024-01-24] MEDS ORDERED: diphenhydrAMINE HCL 25 MG CAPSULE (FP) PO ONE (23:05)
[2024-01-24] MEDS ORDERED: ACETAMINOPHEN 500 MG TABLET (FP) ONE (23:05)
[2024-01-24] MEDS ORDERED: DOXYCYCLINE HYCLATE 100 MG VIAL ONE (23:06)
[2024-01-24] MEDS ORDERED: DEXTROSE 5%-WATER 100 ML IVPB ONE (23:06)
[2024-01-24 23:09] LABS: URINE APPEARANCE CLEAR; URINE BILIRUBIN NEGATIVE (NEGATIVE); URINE COLOR YELLOW; URINE GLUCOSE (UA) NEGATIVE (NEGATIVE); URINE KETONE NEGATIVE (NEGATIVE); URINE LEUK ESTERASE NEGATIVE (NEGATIVE); URINE NITRITE NEGATIVE (NEGATIVE); URINE PROTEIN NEGATIVE (NEGATIVE); URINE UROBILINOGEN 0.2 mg/dL (0.2-1.0)
[2024-01-24 23:13] LABS: BASO % 1.1 % (0-2.0); EOS % 11.6 % (0-4.5); HEMATOCRIT 38.8 % (35.4-49); HEMOGLOBIN 12.8 GM/dL (11.7-16.9); LYMPH % 25.1 % (8-40); MCH 27.7 pg (25.7-33.7); MCHC 32.9 g/dl (32.0-35.9); MEAN CELL VOLUME 84.2 fl (80-96); MEAN PLT VOLUME 7.6 fl (7.5-11.1); MONO % 14.6 % (3.8-10.2); NEUT % 47.6 % (42.8-82.8); PLATELET COUNT 270 10^3/uL (134-434); RBC 4.61 M/mm3 (4.00-5.60); RDW 16.1 % (11.9-15.9)
[2024-01-24 23:14] LABS: INR 0.84 (0.83-1.09); PROTHROMBIN TIME (PATIENT) 9.7 SEC (9.7-13.0)
[2024-01-24 23:16] LABS: ACTIVATED PTT 30.2 SECONDS (25.2-36.5)
[2024-01-24] MEDS: diphenhydrAMINE HCL 25 MG CAPSULE (FP) PO ONE (23:16)
[2024-01-24] MEDS: ACETAMINOPHEN 500 MG TABLET (FP) PO ONE (23:16)
[2024-01-24] MEDS: DOXYCYCLINE INJECTION 100 MG in DEXTROSE 5%-WATER 100 ML IVPB ONE (23:16)
[2024-01-25 00:25] LABS: CALCIUM 8.1 mg/dL (8.5-10.1)
[2024-01-25 00:26] LABS: ALBUMIN 2.9 g/dl (3.4-5.0); BLOOD UREA NITROGEN 19.3 mg/dL (7-18); GLUCOSE,RANDOM 82 mg/dL (74-106)
[2024-01-25 00:29] LABS: SGOT/AST 83 U/L (15-37)
[2024-01-25 00:30] LABS: PHOSPHOROUS 3.4 mg/dL (2.5-4.9)
[2024-01-25 00:31] LABS: BILIRUBIN,TOTAL 0.2 mg/dL (0.2-1)
[2024-01-25 00:32] LABS: ALK PHOS 72 U/L (45-117)
[2024-01-25 00:36] LABS: CHLORIDE 108 mmol/L (98-107); SODIUM 136 mmol/L (136-145)
[2024-01-25 00:46] LABS: ANION GAP 6 mmol/L (4-13); CO2 22 mmol/L (21-32); POTASSIUM 7.1 mmol/L (3.5-5.1); SGPT/ALT 24 U/L (13-61)
[2024-01-25 01:44] LABS: POTASSIUM 5.3 mmol/L (3.5-5.1)
[2024-01-25 01:46] LABS: BLOOD UREA NITROGEN 19.2 mg/dL (7-18)
[2024-01-25 01:49] LABS: CREATININE 0.8 mg/dL (0.55-1.3)
[2024-01-25] MEDS ORDERED: ALBUTEROL SO4 2.5/IPRATROPIUM 0.5 INH SOL 3 ML VIAL.NEB. NEB ONE ×4 (02:34→20:02)
[2024-01-25] MEDS: ALBUTEROL SO4 2.5/IPRATROPIUM 0.5 INH SOL 3 ML VIAL.NEB. NEB SCH (02:40)
[2024-01-25] MEDS: ATOVAQUONE 750 MG/5 ML (UNIT-DOSE PACKAGING) PO ONE (02:40)
[2024-01-25] MEDS: BUDESONIDE/FORMETEROL FUMARATE 160/4.5 mcg INHALER IH SCH (02:46)
[2024-01-25] MEDS: SODIUM CHLORIDE 0.9% 500 ML INFUS.BAG IV ONE (06:30)
[2024-01-25 07:36] LABS: HEMATOCRIT 37.4 % (35.4-49); HEMOGLOBIN 12.3 GM/dL (11.7-16.9); MCH 27.8 pg (25.7-33.7); MCHC 32.9 g/dl (32.0-35.9); MEAN CELL VOLUME 84.6 fl (80-96); MEAN PLT VOLUME 6.8 fl (7.5-11.1); PLATELET COUNT 280 10^3/uL (134-434); RBC 4.42 M/mm3 (4.00-5.60); RDW 15.7 % (11.9-15.9); WHITE BLOOD COUNT 2.9 K/mm3 (4.0-10.0)
[2024-01-25 07:42] LABS: POTASSIUM 4.2 mmol/L (3.5-5.1)
[2024-01-25 07:54] LABS: CALCIUM 8.4 mg/dL (8.5-10.1)
[2024-01-25 07:55] LABS: ALBUMIN 2.9 g/dl (3.4-5.0); BLOOD UREA NITROGEN 16.7 mg/dL (7-18); MAGNESIUM 1.8 mg/dL (1.8-2.4)
[2024-01-25 07:58] LABS: CREATININE 0.9 mg/dL (0.55-1.3); PHOSPHOROUS 2.7 mg/dL (2.5-4.9)
[2024-01-25 07:59] LABS: BILIRUBIN,TOTAL 0.3 mg/dL (0.2-1); TOT PROT 6.4 g/dl (6.4-8.2)
[2024-01-25] MEDS: INSULIN ASPART SLIDING SCALE (NOVOLOG) 1 VIAL SQ SCH (08:33)
[2024-01-25] MEDS ORDERED: DOXYCYCLINE HYCLATE 100 MG VIAL ONE ×2 (09:51→22:07)
[2024-01-25] MEDS: ENOXAPARIN NA (PORCINE) 40 MG/0.4 ML DISP.SYRIN SQ SCH (11:42)
[2024-01-25] MEDS: methylPREDNISolone NA SUCC 40 MG/1 ML VIAL IVPUSH SCH (11:43)
[2024-01-25] MEDS: DOXYCYCLINE INJECTION 100 MG in DEXTROSE 5%-WATER 100 ML IVPB SCH (11:43)
[2024-01-25] MEDS: BUDESONIDE/FORMETEROL FUMARATE 80/4.5 mcg INHALER IH SCH (14:20)
[2024-01-25] MEDS ORDERED: INSULIN ASPART SLIDING SCALE (NOVOLOG) 1 VIAL SQ ONE (17:34)
[2024-01-25] MEDS ORDERED: CEFTRIAXONE 1 GM/50 ML BAG ONE (22:07)
[2024-01-25] MEDS: CEFTRIAXONE 1 G/50 ML PREMIX 50 ML IVPB SCH (22:53)
[2024-01-26 06:02] LABS: BASO % 0.2 % (0-2.0); HEMATOCRIT 37.9 % (35.4-49); HEMOGLOBIN 12.5 GM/dL (11.7-16.9); MCH 27.8 pg (25.7-33.7); MCHC 33.1 g/dl (32.0-35.9); MEAN PLT VOLUME 6.7 fl (7.5-11.1); MONO % 2.3 % (3.8-10.2); NEUT % 88.5 % (42.8-82.8); PLATELET COUNT 341 10^3/uL (134-434); RBC 4.51 M/mm3 (4.00-5.60); RDW 15.3 % (11.9-15.9); WHITE BLOOD COUNT 5.8 K/mm3 (4.0-10.0)
[2024-01-26 06:09] LABS: POTASSIUM 4.5 mmol/L (3.5-5.1)
[2024-01-26 06:13] LABS: BLOOD UREA NITROGEN 21.3 mg/dL (7-18); CALCIUM 8.8 mg/dL (8.5-10.1)
[2024-01-26 06:16] LABS: CREATININE 0.9 mg/dL (0.55-1.3)
[2024-01-26] MEDS ORDERED: ALBUTEROL SO4 2.5/IPRATROPIUM 0.5 INH SOL 3 ML VIAL.NEB. NEB ONE ×2 (08:57→13:30)
[2024-01-26] MEDS: ATOVAQUONE 750 MG/5 ML (UNIT-DOSE PACKAGING) PO SCH (09:00)
[2024-01-26] MEDS ORDERED: ENOXAPARIN NA (PORCINE) 40 MG/0.4 ML DISP.SYRIN SQ ONE (09:36)
[2024-01-26] MEDS ORDERED: methylPREDNISolone NA SUCC 40 MG/1 ML VIAL ONE (09:36)
[2024-01-26] MEDS ORDERED: DOXYCYCLINE HYCLATE 100 MG VIAL ONE (10:37)
[2024-01-26] MEDS: MELATONIN 5 MG TABLETS PO ONE (23:44)
[2024-01-26] MEDS: hydrOXYzine PAMOATE 25 MG CAPSULE (FP) PO ONE (23:44)
[2024-01-27 00:14] VITALS: BMI 18.0
[2024-01-27 08:25] LABS: HEMATOCRIT 40.3 % (35.4-49); HEMOGLOBIN 13.2 GM/dL (11.7-16.9); MCH 27.7 pg (25.7-33.7); MCHC 32.7 g/dl (32.0-35.9); MEAN CELL VOLUME 84.7 fl (80-96); PLATELET COUNT 351 10^3/uL (134-434); RBC 4.76 M/mm3 (4.00-5.60); RDW 15.8 % (11.9-15.9); WHITE BLOOD COUNT 6.4 K/mm3 (4.0-10.0)
[2024-01-27 08:57] LABS: POTASSIUM 4.9 mmol/L (3.5-5.1)
[2024-01-27 09:01] LABS: BLOOD UREA NITROGEN 29.3 mg/dL (7-18); MAGNESIUM 1.9 mg/dL (1.8-2.4)
[2024-01-27 09:04] LABS: CREATININE 0.9 mg/dL (0.55-1.3); PHOSPHOROUS 3.5 mg/dL (2.5-4.9)
[2024-01-28] MEDS: predniSONE 20 MG TABLET (UD) PO SCH (12:17)
[2024-01-28] MEDS: ACETAMINOPHEN 500 MG TABLET (FP) PO PRN (14:02)
[2024-01-28] MEDS: LORazepam 0.5 MG TABLET PO PRN (15:27)
[2024-01-28] MEDS: DOXYCYCLINE HYCLATE 100 MG CAPSULE PO SCH (17:29)
[2024-01-28] MEDS: diphenhydrAMINE HCL 25 MG CAPSULE (FP) PO ONE (19:10)
[2024-01-29 07:42] VITALS: RESP 18
[2024-01-29 08:36] LABS: HEMATOCRIT 37.6 % (35.4-49); HEMOGLOBIN 11.9 GM/dL (11.7-16.9); MCH 26.8 pg (25.7-33.7); MCHC 31.7 g/dl (32.0-35.9); MEAN CELL VOLUME 84.5 fl (80-96); MEAN PLT VOLUME 6.7 fl (7.5-11.1); PLATELET COUNT 320 10^3/uL (134-434); RBC 4.45 M/mm3 (4.00-5.60); RDW 15.9 % (11.9-15.9); WHITE BLOOD COUNT 11.3 K/mm3 (4.0-10.0)
[2024-01-29 08:42] LABS: POTASSIUM 4.1 mmol/L (3.5-5.1)
[2024-01-29 08:59] LABS: BLOOD UREA NITROGEN 33.4 mg/dL (7-18); CALCIUM 8.8 mg/dL (8.5-10.1)
[2024-01-29 09:03] LABS: CREATININE 0.8 mg/dL (0.55-1.3); PHOSPHOROUS 3.1 mg/dL (2.5-4.9)
[2024-01-29 09:07] LABS: MAGNESIUM 2.1 mg/dL (1.8-2.4)
[2024-01-29 10:32] VITALS: BP 112/64; PULSE 85; TEMP 98.3
== END 2024-01-29 13:04 | disposition home or self-care (01) ==
LOC: JER 20:52 → INTOOBSV 01-25 01:01 → JERBED 01-25 01:01 → UNDOADMOB 01-25 01:01 → JERBED 01-25 13:21 → J7W 01-26 20:32
PROVIDERS: ADMIT Internal Medicine; ATTEND Internal Medicine
PROC: 3E03329 Introduction of Other Anti-infective into Peripheral Vein, Percutaneous Approach (ICD-10-PCS; principal; 2024-01-25)
PROC: 3E023GC Introduction of Other Therapeutic Substance into Muscle, Percutaneous Approach (ICD-10-PCS; 2024-01-25)
PROC: 3E033GC Introduction of Other Therapeutic Substance into Peripheral Vein, Percutaneous Approach (ICD-10-PCS; 2024-01-25)
PROC: 3E0337Z Introduction of Electrolytic and Water Balance Substance into Peripheral Vein, Percutaneous Approach (ICD-10-PCS; 2024-01-25)
DX: B59 Pneumocystosis (principal); B20 Human immunodeficiency virus [HIV] disease; J18.9 Pneumonia, unspecified organism; J44.1 Chronic obstructive pulmonary disease with (acute) exacerbation; M87.9 Osteonecrosis, unspecified; F19.10 Other psychoactive substance abuse, uncomplicated; Z91.199 Patient's noncompliance with other medical treatment and regimen due to unspecified reason; K86.1 Other chronic pancreatitis; E11.9 Type 2 diabetes mellitus without complications; R62.7 Adult failure to thrive; R53.1 Weakness; J44.9 Chronic obstructive pulmonary disease, unspecified; D72.818 Other decreased white blood cell count; F41.9 Anxiety disorder, unspecified; Z59.00 Homelessness unspecified; Z88.1 Allergy status to other antibiotic agents; Z91.013 Allergy to seafood
CPT/HCPCS: 0241U-QW; 36415; 71046-TC-FY; 71250-TC; 80048; 80053; 81003; 82962; 83735; 84100; 84484; 85025; 85027; 85610; 85730; 86359; 86360; 87040; 87070; 87086; 87186; 87205; 87536; 93005; 93010; 94640; 96365; 96372; 96375; 97116-GP; 97161-GP; 99285-25; G0378

== ENCOUNTER 2024-07-22 09:55 | Emergency (ER) | payer OTHER ==
[2024-07-22 10:19] VITALS: TEMP 98.3; BMI 16.9
[2024-07-22 15:23] LABS: HEMATOCRIT 37.7 % (40.1-51.0); HEMOGLOBIN 11.4 g/dL (13.7-17.5); MCHC 30.2 g/dl (32.3-36.5); MEAN CELL VOLUME 86.1 fl (79.0-92.2); MEAN PLT VOLUME 8.6 fl (9.4-12.4); PLATELET COUNT 370 x10^3/uL (163-337)
[2024-07-22 15:45] LABS: POTASSIUM 3.6 mmol/L (3.5-5.1)
[2024-07-22 15:47] LABS: ALBUMIN 3.2 g/dl (3.4-5.0); CALCIUM 9.2 mg/dL (8.5-10.1); MAGNESIUM 2.2 mg/dL (1.8-2.4)
[2024-07-22 15:48] LABS: BLOOD UREA NITROGEN 19.1 mg/dL (7-18)
[2024-07-22 15:50] LABS: CREATININE 0.9 mg/dL (0.55-1.3)
[2024-07-22 15:52] LABS: BILIRUBIN,TOTAL 0.2 mg/dL (0.2-1); TOT PROT 7.4 g/dl (6.4-8.2)
[2024-07-22 17:03] VITALS: BP 112/70; PULSE 70; RESP 20
== END 2024-07-22 18:47 | disposition home or self-care (01) ==
LOC: JER 09:55
DX: R53.83 Other fatigue (principal); R05.9 Cough, unspecified; R63.4 Abnormal weight loss; R09.3 Abnormal sputum; R61 Generalized hyperhidrosis; R68.83 Chills (without fever); R53.1 Weakness; B20 Human immunodeficiency virus [HIV] disease
CPT/HCPCS: 0241U-QW; 36415; 71045-TC-FY; 71250-TC; 80053; 83735; 85027; 86359; 86360; 86850; 86900; 86901; 87040; 93005; 93010; 99285-25

== ENCOUNTER 2024-10-03 19:08 | Inpatient (IN) | payer OTHER ==
[2024-10-03] MEDS: LACTATED RINGERS SOLUTION 1000 ML INFUS.BAG IV ONE (21:13)
[2024-10-03 21:14] LABS: BG HCT 37.0 % (35.4-49); VENOUS BASE EXCESS 0.1 mmol/L (-2-2); VENOUS O2 SATURATION 23.5 % (70-80); VENOUS PCO2 52.1 mmHg (38-52); VENOUS PH 7.329 (7.310-7.410)
[2024-10-03 21:16] LABS: ABSOLUTE IMMATURE GRANULOCYTES 0.02 x10^3/uL (0.0-0.031); BASOPHILS # 0.04 x10^3/uL (0.01-0.08); EOSINOPHIL % 2.5 % (0.8-7.0); EOSINOPHILS # 0.17 x10^3/uL (0.04-0.54); MCHC 30.3 g/dl (32.3-36.5); MEAN CELL VOLUME 89.6 fl (79.0-92.2); MEAN PLT VOLUME 8.8 fl (9.4-12.4); MONOCYTE # 0.73 x10^3/uL (0.30-0.82); MONOCYTE % 10.9 % (5.3-12.2); RDW 16.4 % (12.1-15.9)
[2024-10-03 21:30] LABS: ACTIVATED PTT 33.3 SECONDS (25.2-36.5); INR 0.95 (0.83-1.09); PROTHROMBIN TIME (PATIENT) 10.5 SEC (9.7-13.0)
[2024-10-03 21:40] LABS: LACTIC ACID 2.2 mmol/L (0.4-2.0)
[2024-10-03 21:52] LABS: URINE APPEARANCE CLOUDY; URINE BILIRUBIN NEGATIVE (NEGATIVE); URINE COLOR DK YELLOW; URINE GLUCOSE (UA) NEGATIVE (NEGATIVE); URINE KETONE TRACE (NEGATIVE); URINE LEUK ESTERASE NEGATIVE (NEGATIVE); URINE NITRITE NEGATIVE (NEGATIVE); URINE PROTEIN 100 (NEGATIVE); URINE UROBILINOGEN 1.0 mg/dL (0.2-1.0)
[2024-10-03 22:07] LABS: CO2 26.0 mmol/L (21-32); GLUCOSE,RANDOM 61.0 mg/dL (74-106)
[2024-10-03 22:10] LABS: CREATININE 1.6 mg/dL (0.55-1.3); SGOT/AST 34.0 U/L (15-37); SGPT/ALT 22.0 U/L (13-61)
[2024-10-03 22:12] LABS: LDH 274.0 U/L (87-246); TOT PROT 8.7 g/dl (6.4-8.2)
[2024-10-03 22:13] LABS: ALK PHOS 83.0 U/L (45-117)
[2024-10-03 22:45] LABS: HCV DIAGNOSTIC IN-HOUSE W/RFLX REACTIVE (NONREACTIVE)
[2024-10-03] MEDS ORDERED: ACETAMINOPHEN INJECTION 100 ML ONE (22:59)
[2024-10-03] MEDS: ACETAMINOPHEN 1000 MG/100 ML BAG IVPB ONE (23:04)
[2024-10-04] MEDS ORDERED: CEFTRIAXONE 1 GM/50 ML BAG ONE (00:20)
[2024-10-04] MEDS ORDERED: AZITHROMYCIN IVPB 500 MG/250 ML BAG IVPB ONE (00:20)
[2024-10-04] MEDS: CEFTRIAXONE 1 GM in DEXTROSE 5%-WATER - 100 ML IVPB ONE (00:25)
[2024-10-04 01:38] LABS: HIV INTERPRETATION PRESUMPTIVE POSITIVE (NEGATIVE)
[2024-10-04] MEDS: AZITHROMYCIN IVPB 500 MG in DEXTROSE 5%-WATER - 250 ML IVPB ONE (02:04)
[2024-10-04] MEDS ORDERED: hydrOXYzine PAMOATE 25 MG CAPSULE (FP) PO ONE (03:07)
[2024-10-04] MEDS: hydrOXYzine PAMOATE 25 MG CAPSULE (FP) PO ONE (03:08)
[2024-10-04] MEDS: POTASSIUM CHLORIDE ORAL LIQUID 20 MEQ/15 ML PO ONE (03:09)
[2024-10-04] MEDS ORDERED: ALBUTEROL SO4 HFA INHALER IH PRN (03:59)
[2024-10-04] MEDS ORDERED: SODIUM CHLORIDE 1,000 ML IV SCH (05:00)
[2024-10-04] MEDS: SODIUM CHLORIDE 1,000 ML IV SCH (06:07)
[2024-10-04] MEDS ORDERED: GABAPENTIN 100 MG CAPSULE ONE ×2 (06:08→21:09)
[2024-10-04] MEDS: GABAPENTIN 100 MG CAPSULE PO SCH (06:09)
[2024-10-04 06:41] LABS: ABSOLUTE IMMATURE GRANULOCYTES 0.01 x10^3/uL (0.0-0.031); BASOPHILS # 0.05 x10^3/uL (0.01-0.08); EOSINOPHIL % 10.2 % (0.8-7.0); EOSINOPHILS # 0.35 x10^3/uL (0.04-0.54); MCHC 31.1 g/dl (32.3-36.5); MEAN CELL VOLUME 88.5 fl (79.0-92.2); MEAN PLT VOLUME 8.5 fl (9.4-12.4); MONOCYTE # 0.52 x10^3/uL (0.30-0.82); MONOCYTE % 15.1 % (5.3-12.2); RDW 16.0 % (12.1-15.9)
[2024-10-04 07:09] LABS: CO2 30.0 mmol/L (21-32); GLUCOSE,RANDOM 93.0 mg/dL (74-106)
[2024-10-04 07:11] LABS: CREATININE 1.1 mg/dL (0.55-1.3)
[2024-10-04 07:12] LABS: SGOT/AST 23.0 U/L (15-37); SGPT/ALT 16.0 U/L (13-61)
[2024-10-04 07:15] LABS: ALK PHOS 66.0 U/L (45-117)
[2024-10-04 07:18] LABS: TOT PROT 6.3 g/dl (6.4-8.2)
[2024-10-04] MEDS ORDERED: CLINDAMYCIN 600MG PREMIX IVPB 600 MG/50 ML BAG IVPB ONE ×3 (08:54→21:02)
[2024-10-04] MEDS: ATOVAQUONE 750 MG/5 ML (UNIT-DOSE PACKAGING) PO SCH (08:55)
[2024-10-04] MEDS: CLINDAMYCIN 600MG PREMIX IVPB 600 MG/50 ML BAG IVPB SCH (09:05)
[2024-10-04] MEDS ORDERED: PIPERACILLIN/TAZOB 3.375 GM 3.375 GM in DEXTROSE 5%-WATER - 50 ML IVPB SCH (10:00)
[2024-10-04] MEDS ORDERED: CEFTAZIDIME/AVIBACTAM 1.25 GM in DEXTROSE 5%-WATER - 100 ML IVPB SCH (10:00)
[2024-10-04] MEDS: CEFTAZIDIME/AVIBACTAM 1.25 GM in DEXTROSE 5%-WATER - 100 ML IVPB SCH (10:46)
[2024-10-04] MEDS: BICTEGRAV/EMTRICIT/TENOFOV (BIKTARVY) 50-200-25 MG TABLET PO SCH (10:46)
[2024-10-04] MEDS: ENOXAPARIN NA (PORCINE) 40 MG/0.4 ML DISP.SYRIN SQ SCH (10:46)
[2024-10-04] MEDS: FOLIC ACID 1 MG TABLET (FP) PO SCH (10:46)
[2024-10-04] MEDS: BUDESONIDE/FORMOTEROL FUMARATE 160-4.5 MCG (10.3 GM INHALER) IH SCH (11:10)
[2024-10-04] MEDS ORDERED: VANCOMYCIN 1 GM PREMIX (F) 1 GM/200 ML BAG ONE (23:20)
[2024-10-05] MEDS ORDERED: CEFTRIAXONE 1 GM in DEXTROSE 5%-WATER - 50 ML IVPB SCH (00:30)
[2024-10-05] MEDS: VANCOMYCIN/WATER FOR INJ (PEG) 1,000 MG/200 ML BAG IVPB SCH (00:31)
[2024-10-05] MEDS ORDERED: AZITHROMYCIN IVPB 500 MG in DEXTROSE 5%-WATER - 250 ML IVPB SCH (02:00)
[2024-10-05] MEDS ORDERED: CLINDAMYCIN 600MG PREMIX IVPB 600 MG/50 ML BAG IVPB ONE ×3 (04:50→16:05)
[2024-10-05] MEDS ORDERED: diphenhydrAMINE HCL 25 MG CAPSULE (FP) PO ONE (06:09)
[2024-10-05] MEDS ORDERED: GABAPENTIN 100 MG CAPSULE ONE ×2 (06:10→15:00)
[2024-10-05] MEDS: diphenhydrAMINE HCL 25 MG CAPSULE (FP) PO ONE (06:19)
[2024-10-05] MEDS ORDERED: FOLIC ACID 1 MG TABLET (FP) ONE (09:36)
[2024-10-05] MEDS ORDERED: ENOXAPARIN NA (PORCINE) 40 MG/0.4 ML DISP.SYRIN SQ ONE (09:37)
[2024-10-05 10:20] LABS: ABSOLUTE IMMATURE GRANULOCYTES 0.01 x10^3/uL (0.0-0.031); BASOPHILS # 0.02 x10^3/uL (0.01-0.08); EOSINOPHIL % 8.0 % (0.8-7.0); EOSINOPHILS # 0.28 x10^3/uL (0.04-0.54); MCHC 31.0 g/dl (32.3-36.5); MEAN CELL VOLUME 88.3 fl (79.0-92.2); MEAN PLT VOLUME 9.3 fl (9.4-12.4); MONOCYTE # 0.39 x10^3/uL (0.30-0.82); MONOCYTE % 11.2 % (5.3-12.2); RDW 15.8 % (12.1-15.9)
[2024-10-05 11:17] LABS: CO2 27.0 mmol/L (21-32); GLUCOSE,RANDOM 127.0 mg/dL (74-106)
[2024-10-05 11:20] LABS: CREATININE 1.0 mg/dL (0.55-1.3); SGOT/AST 31.0 U/L (15-37); SGPT/ALT 17.0 U/L (13-61)
[2024-10-05 11:22] LABS: TOT PROT 6.1 g/dl (6.4-8.2)
[2024-10-05 11:23] LABS: ALK PHOS 61.0 U/L (45-117)
[2024-10-05] MEDS: MELATONIN 5 MG TABLETS PO PRN (21:20)
[2024-10-06] MEDS: AMOX TR/POT CLAV 875MG/125MG TABLETS (FP) PO SCH (09:13)
[2024-10-06 09:54] LABS: ABSOLUTE IMMATURE GRANULOCYTES 0.01 x10^3/uL (0.0-0.031); BASOPHILS # 0.02 x10^3/uL (0.01-0.08); EOSINOPHIL % 8.5 % (0.8-7.0); EOSINOPHILS # 0.33 x10^3/uL (0.04-0.54); MCHC 31.1 g/dl (32.3-36.5); MEAN CELL VOLUME 87.6 fl (79.0-92.2); MEAN PLT VOLUME 9.0 fl (9.4-12.4); MONOCYTE # 0.42 x10^3/uL (0.30-0.82); MONOCYTE % 10.9 % (5.3-12.2); RDW 15.5 % (12.1-15.9)
[2024-10-06 10:37] LABS: CO2 29.0 mmol/L (21-32)
[2024-10-06 10:40] LABS: CREATININE 0.8 mg/dL (0.55-1.3); GLUCOSE,RANDOM 104.0 mg/dL (74-106); SGOT/AST 18.0 U/L (15-37); SGPT/ALT 14.0 U/L (13-61)
[2024-10-06 10:42] LABS: TOT PROT 6.7 g/dl (6.4-8.2)
[2024-10-06 10:43] LABS: ALK PHOS 63.0 U/L (45-117)
[2024-10-06] MEDS: methylPREDNISolone NA SUCC 40 MG/1 ML VIAL IVPUSH ONE (14:43)
[2024-10-06 15:34] VITALS: BMI 19.4
[2024-10-06] MEDS: ALBUTEROL SO4 2.5/IPRATROPIUM 0.5 INH SOL 3 ML VIAL.NEB. NEB SCH (20:35)
[2024-10-07 06:31] VITALS: BP 113/70; PULSE 80; RESP 18; TEMP 97.9
[2024-10-07 09:24] LABS: ABSOLUTE IMMATURE GRANULOCYTES 0.03 x10^3/uL (0.0-0.031); BASOPHILS # 0.01 x10^3/uL (0.01-0.08); EOSINOPHIL % 0.1 % (0.8-7.0); EOSINOPHILS # 0.01 x10^3/uL (0.04-0.54); MCHC 31.3 g/dl (32.3-36.5); MEAN CELL VOLUME 86.5 fl (79.0-92.2); MEAN PLT VOLUME 8.8 fl (9.4-12.4); MONOCYTE # 0.40 x10^3/uL (0.30-0.82); MONOCYTE % 4.5 % (5.3-12.2); RDW 15.6 % (12.1-15.9)
[2024-10-07 09:55] LABS: CO2 25.0 mmol/L (21-32); GLUCOSE,RANDOM 117.0 mg/dL (74-106)
[2024-10-07 09:58] LABS: CREATININE 0.8 mg/dL (0.55-1.3); SGOT/AST 14.0 U/L (15-37); SGPT/ALT 14.0 U/L (13-61)
[2024-10-07 10:00] LABS: TOT PROT 7.0 g/dl (6.4-8.2)
[2024-10-07 10:01] LABS: ALK PHOS 66.0 U/L (45-117)
== END 2024-10-07 11:00 | disposition home or self-care (01) | DRG 140 ==
LOC: JER 19:08 → JERBED 19:42 → J8W 10-05 18:13
PROVIDERS: ADMIT Hospitalist; ATTEND Nurse Practitioner Family
DX: J44.1 Chronic obstructive pulmonary disease with (acute) exacerbation (principal); B20 Human immunodeficiency virus [HIV] disease; E87.6 Hypokalemia; R64 Cachexia; F10.20 Alcohol dependence, uncomplicated; E43 Unspecified severe protein-calorie malnutrition; Z68.1 Body mass index [BMI] 19.9 or less, adult; R62.7 Adult failure to thrive; F14.20 Cocaine dependence, uncomplicated; J84.9 Interstitial pulmonary disease, unspecified; J47.9 Bronchiectasis, uncomplicated; E11.9 Type 2 diabetes mellitus without complications
CPT/HCPCS: 36415; 71045-TC-FY; 71275-TC; 80048; 80053; 81003; 82803; 82962; 83605; 83615; 83690; 83735; 84100; 84484; 85025; 85610; 85730; 86359; 86360; 86803; 87040; 87086; 87389; 87522; 87637-QW; 87899; 94640; 99285-25

== ENCOUNTER 2024-10-28 10:49 | Emergency (ER) | payer OTHER ==
[2024-10-28 11:01] VITALS: BP 135/87; PULSE 92; RESP 20; TEMP 98.1; BMI 16.9
[2024-10-28] MEDS: BICTEGRAV/EMTRICIT/TENOFOV (BIKTARVY) 50-200-25 MG TABLET PO ONE (13:18)
== END 2024-10-28 13:39 | disposition home or self-care (01) ==
LOC: JERFT 10:49
DX: R09.89 Other specified symptoms and signs involving the circulatory and respiratory systems (principal); R05.9 Cough, unspecified; Z76.0 Encounter for issue of repeat prescription
CPT/HCPCS: 99283-25